=== PATIENT | male | born 1990 | race Caucasian/White ===

== ENCOUNTER 2020-02-15 19:35 | Emergency (ER) | payer OTHER, SELFPAY ==
[2020-02-15 20:00] VITALS: BP 139/88; PULSE 111; RESP 20; TEMP 37.2; O2SAT 98; BMI 35.5
--- NOTE | 2020-02-15 20:25 | ECG_ITS ---
Test Reason : [id number] Blood Pressure : / mmHG Vent. Rate : 101 BPM Atrial Rate : 101 BPM P-R Int : 138 ms QRS Dur : 080 ms QT Int : 308 ms P-R-T Axes : 008 051 020 degrees QTc Int : 399 ms Sinus tachycardia Nonspecific T wave abnormality Abnormal ECG When compared with ECG of 04-APR-2004 16:47, Nonspecific ST and T wave abnormality now present Referred By: Susie Moya Electronically Signed By:TRISH AMBRIZ
--- NOTE | 2020-02-15 20:25 | XR_ITS ---
EXAMINATION: XR CHEST CLINICAL INFORMATION: Tachycardia COMPARISON: None TECHNIQUE: Frontal view of the chest was obtained. 8:37 PM FINDINGS: Ventricular peritoneal shunt line over the left side of the chest No significant abnormality is noted involving the heart, lungs, mediastinum, bony thorax or soft tissues. XR/XR chest 1V IMPRESSION: Unremarkable examination.
--- NOTE | 2020-02-15 20:29 | ED_ITS ---
HPI - General Adult General Chief complaint: General Medical Stated complaint: COVID + Time Seen by Provider: 02/15/20 19:39 Source: patient and family History of Present Illness HPI narrative: 29-year-old male with a past medical history brain surgery, seizures, CVA, Hypogonadotropic hypogonadism, COVID-19 positive on 02/11 presenting to the ED with mother complaining of rapid heart rate in the 150s, intermittent fevers, dry cough and fatigue. Mother admits patient currently being weaned off seizure medications. Denies CP/SOB, abdominal pain, nausea/vomiting, diarrhea. P.o. intake WNL Onset (ago): day(s) Related Data Previous Rx's Medication Instructions Recorded anastrozole 1 mg tablet 1 mg PO DAILY 30 Days #30 tab 01/16/20 testosterone enanthate 75 mg/0.5 75 mg SUBCUT QWEEK 28 Days #2 ml 01/18/20 mL subcutaneous auto-injector Allergies Allergy/AdvReac Type Severity Reaction Status Date / Time No Known Allergies Allergy Verified 02/15/20 20:20 Review of Systems Review of Systems: Constitutional: No Weight loss, + Fever, No Chills, No Night Sweats, + Fatigue, + Malaise Cardiovascular: No Chest Pain, No SOB, No Dyspnea on Exertion, No Orthopnea, No Edema, No Palpitations Respiratory: + Cough, No Sputum, No Wheezing, No Smoke Exposure, No Dyspnea Gastrointestinal: No Nausea, No Vomiting, No Diarrhea, No Constipation, No Ab dominal pain Musculoskeletal: No joint pain, No Myalgias, No Joint Swelling Skin: No Skin Lesions, No rash Yes all other systems are reviewed and are negative [facility] Past Medical History Attestation statement: The following information was validated with the patient. Medical History (Updated 02/16/20 @ 00:21 by ELY Toribio) Hypogonadotropic hypogonadism Seizure Surgical History (Updated 02/15/20 @ 20:03 by Bobbi Rojas) History of thyroidectomy, subtotal Social History Social History Advance Directives: No Advance Directives Information Provided: No Physical Exam Vital Signs: Vital Signs: Last Vital Signs Temp 99 F 02/15/20 20:00 Pulse 101 H 02/15/20 22:00 Resp 18 02/15/20 22:00 BP 139/88 02/15/20 20:00 Pulse Ox 97 02/15/20 22:00 Body Mass Index 35.5 Const: General: cooperative Limitations: no limitations HENMT: Head: Yes normal to inspection Ears: hearing grossly normal bilaterally General nose exam: Normal external nose present Face and sinus: Yes normal facial exam Eyes: General: appearance normal, both eyes and all related structures EOM: EOMs intact bilaterally Neck: Neck: Yes normal visual inspection and Yes no meningeal signs Resp: Effort & Inspection: normal respiratory effort Auscultation: clear to auscultation bilaterally, no rales and no wheezes Cardio: Rate: regular rate and tachycardic Heart sounds: S1 normal heart sound present and S2 normal heart sound present GI: Inspection: Yes normal to inspection Palpation (GI): Soft to palpation, nontender, no guarding and not rigid Skin: Rashes: no rashes Wounds: no wounds Neuro: General: no meningeal signs Gait exam (Neuro): Normal gait present Extrem: Other: No LE edema or calf tenderness General: Yes normal to inspection Course Course Course Narrative: * d-dimer negative, ALT/CRP mildly elevated, troponin negative * CXR unremarkable * 1218--repeat troponin without 50% increase in delta>PR unlikely Lab and imaging results discussed with patient and mother. Worrisome signs and symptoms and strict return precautions discussed. They verbalized understanding feel safe for discharge home Medical Decision Making MDM Narrative Medical decision making narrative: 29-year-old male with a past medical history brain surgery, seizures, CVA, Hypogonadotropic hypogonadism, COVID-19 positive on 02/11 presenting to the ED with mother complaining of rapid heart rate in the 150s, intermittent fevers, dry cough and fatigue. On exam mildly tachycardic, NAD/nontoxic appearing, lungs CTA, abdomen soft/nontender. Concern for COVID-19 vs PE. Low concern for ACS/bacterial infection Plan: EKG, labs, CXR Lab Data Result diagrams: 02/15/20 21:07 02/15/20 21:07 Labs: Lab Results 02/15/20 02/15/20 02/15/20 Range/Units 21:07 21:07 21:08 WBC 5.1 (4.8-10.8) X10*3/uL RBC 5.28 (4.60-5.80) X10*6/uL Hgb 15.6 (14.0-18.0) g/dl Hct 45.9 (42-52) % MCV 86.9 (80-98) fL MCH 29.5 (27.0-33.0) pg MCHC 34.0 (31.0-36.0) g/dl RDW 12.3 (11.0-16.0) % Plt Count 171 (160-400) X10*3/uL MPV 9.1 L (9.4-12.4) fL Immature Gran % (Auto) 0.8 H (0.0-0.4) % Neut % (Auto) 64.5 (45-73) % Lymph % (Auto) 25.9 (20-40) % [place] % (Auto) 8.2 (2-11) % Eos % (Auto) 0.4 (0-4) % Baso % (Auto) 0.2 (0-2) % Lymph # (Auto) 1.3 (1.2-4.9) X10*3/uL [place] # (Auto) 0.4 (0.1-1.2) X10*3/uL Eos # (Auto) 0.0 (0.0-0.4) X10*3/uL Baso # (Auto) 0.0 (0.0-0.2) X10*3/uL Abs Immat Gran (auto) 0.04 H (0.00-0.03) X10*3/uL Absolute Neuts (auto) 3.3 (2.0-8.3) X10*3/uL Absolute Nucleated RBC 0.000 (0.0-0.012) X10*3/uL Nucleated RBC % (auto) 0.0 (0.0-0.2) /100WBC PT (10.8-13.0) SEC INR (0.9-1.1) APTT (24.1-38.0) SEC D-Dimer NG/ML Sodium 138 (135-145) mmol/L Potassium 3.9 (3.3-5.1) mmol/l Chloride 104 (96-108) mmol/L Carbon Dioxide 25 (22-29) mmol/L Anion Gap 13 (12-20) BUN 15 (9-16) mg/dL Creatinine 0.85 (0.5-1.4) mg/dL Estim Creat Clear Calc 143.1 Estimated GFR > 60 Random Glucose 90 (60-115) mg/dL Calcium 9.2 (8.4-10.2) mg/dL Magnesium 2.1 (1.6-2.6) mg/dL Ferritin (20-250) ng/mL Total Bilirubin 0.4 (0.0-1.0) mg/dL Direct Bilirubin 0.2 (0.0-0.5) mg/dL AST 24 (5-37) U/L ALT 50 H (0-40) U/L Alkaline Phosphatase 120 H (39-117) U/L Lactate Dehydrogenase (118-273) U/L Troponin I High Sens < 3.5 (<3.5-35.0) ng/L C-Reactive Protein (< or = 0.50) mg/dL B-Natriuretic Peptide (<100) pg/mL Total Protein 7.4 (6.5-8.0) g/dL Albumin 4.7 (3.5-5.0) g/dL Procalcitonin ng/mL 02/15/20 02/15/20 02/15/20 Range/Units 21:08 21:08 21:08 WBC (4.8-10.8) X10*3/uL RBC (4.60-5.80) X10*6/uL Hgb (14.0-18.0) g/dl Hct (42-52) % MCV (80-98) fL MCH (27.0-33.0) pg MCHC (31.0-36.0) g/dl RDW (11.0-16.0) % Plt Count (160-400) X10*3/uL MPV (9.4-12.4) fL Immature Gran % (Auto) (0.0-0.4) % Neut % (Auto) (45-73) % Lymph % (Auto) (20-40) % [place] % (Auto) (2-11) % Eos % (Auto) (0-4) % Baso % (Auto) (0-2) % Lymph # (Auto) (1.2-4.9) X10*3/uL [place] # (Auto) (0.1-1.2) X10*3/uL Eos # (Auto) (0.0-0.4) X10*3/uL Baso # (Auto) (0.0-0.2) X10*3/uL Abs Immat Gran (auto) (0.00-0.03) X10*3/uL Absolute Neuts (auto) (2.0-8.3) X10*3/uL Absolute Nucleated RBC (0.0-0.012) X10*3/uL Nucleated RBC % (auto) (0.0-0.2) /100WBC PT 13.9 H (10.8-13.0) SEC INR 1.2 H (0.9-1.1) APTT 33.5 (24.1-38.0) SEC D-Dimer < 200 NG/ML Sodium (135-145) mmol/L Potassium (3.3-5.1) mmol/l Chloride (96-108) mmol/L Carbon Dioxide (22-29) mmol/L Anion Gap (12-20) BUN (9-16) mg/dL Creatinine (0.5-1.4) mg/dL Estim Creat Clear Calc Estimated GFR Random Glucose (60-115) mg/dL Calcium (8.4-10.2) mg/dL Magnesium (1.6-2.6) mg/dL Ferritin 803 H (20-250) ng/mL Total Bilirubin (0.0-1.0) mg/dL Direct Bilirubin (0.0-0.5) mg/dL AST (5-37) U/L ALT (0-40) U/L Alkaline Phosphatase (39-117) U/L Lactate Dehydrogenase 190 (118-273) U/L Troponin I High Sens (<3.5-35.0) ng/L C-Reactive Protein 0.86 H (< or = 0.50) mg/dL B-Natriuretic Peptide < 10 (<100) pg/mL Total Protein (6.5-8.0) g/dL Albumin (3.5-5.0) g/dL Procalcitonin ng/mL 02/15/20 02/15/20 Range/Units 21:08 23:40 WBC (4.8-10.8) X10*3/uL RBC (4.60-5.80) X10*6/uL Hgb (14.0-18.0) g/dl Hct (42-52) % MCV (80-98) fL MCH (27.0-33.0) pg MCHC (31.0-36.0) g/dl RDW (11.0-16.0) % Plt Count (160-400) X10*3/uL MPV (9.4-12.4) fL Immature Gran % (Auto) (0.0-0.4) % Neut % (Auto) (45-73) % Lymph % (Auto) (20-40) % [place] % (Auto) (2-11) % Eos % (Auto) (0-4) % Baso % (Auto) (0-2) % Lymph # (Auto) (1.2-4.9) X10*3/uL [place] # (Auto) (0.1-1.2) X10*3/uL Eos # (Auto) (0.0-0.4) X10*3/uL Baso # (Auto) (0.0-0.2) X10*3/uL Abs Immat Gran (auto) (0.00-0.03) X10*3/uL Absolute Neuts (auto) (2.0-8.3) X10*3/uL Absolute Nucleated RBC (0.0-0.012) X10*3/uL Nucleated RBC % (auto) (0.0-0.2) /100WBC PT (10.8-13.0) SEC INR (0.9-1.1) APTT (24.1-38.0) SEC D-Dimer NG/ML Sodium (135-145) mmol/L Potassium (3.3-5.1) mmol/l Chloride (96-108) mmol/L Carbon Dioxide (22-29) mmol/L Anion Gap (12-20) BUN (9-16) mg/dL Creatinine (0.5-1.4) mg/dL Estim Creat Clear Calc Estimated GFR Random Glucose (60-115) mg/dL Calcium (8.4-10.2) mg/dL Magnesium (1.6-2.6) mg/dL Ferritin (20-250) ng/mL Total Bilirubin (0.0-1.0) mg/dL Direct Bilirubin (0.0-0.5) mg/dL AST (5-37) U/L ALT (0-40) U/L Alkaline Phosphatase (39-117) U/L Lactate Dehydrogenase (118-273) U/L Troponin I High Sens 3.7 (<3.5-35.0) ng/L C-Reactive Protein (< or = 0.50) mg/dL B-Natriuretic Peptide (<100) pg/mL Total Protein (6.5-8.0) g/dL Albumin (3.5-5.0) g/dL Procalcitonin 0.05 ng/mL Discharge Plan Discharge Clinical Impression: COVID-19, Tachycardia Patient Disposition: Home, Self-Care Instructions: COVID-19 (Coronavirus Disease 2019) (ED) Additional Instructions: your blood work and chest x-ray were reassuring today in the ED Call your doctor for follow-up It is important that you are staying hydrated at home If you develop constant or worsening chest pain, shortness of breath, or high fevers unresolved with Tylenol at home return to the ED Prescriptions: No Action anastrozole 1 mg tablet 1 mg PO DAILY 30 Days Qty: 30 RF: 2 testosterone enanthate [Xyosted] 75 mg/0.5 mL auto-injector 75 mg subcut QWEEK 28 Days Qty: 2 RF: 3 Referrals: Physician,Unknown [Primary Care Provider] - 2 days
[2020-02-15 21:15] LABS: Basophils Percent Auto 0.2 % (0-2); Eosinophils Percent Auto 0.4 % (0-4); Hematocrit 45.9 % (42-52); Hemoglobin 15.6 g/dl (14.0-18.0); Imm Gran Abs Auto 0.04 X10*3/uL (0.00-0.03); Imm Gran Pct Auto 0.8 % (0.0-0.4); Lymphocytes Absolute Auto 1.3 X10*3/uL (1.2-4.9); Lymphocytes Percent Auto 25.9 % (20-40); MANUAL DIFF FLAG NO; Mean Corpuscular Hemoglobin 29.5 pg (27.0-33.0); Mean Corpuscular Volume 86.9 fL (80-98); Mean Platelet Volume 9.1 fL (9.4-12.4); Monocytes Absolute Auto 0.4 X10*3/uL (0.1-1.2); Monocytes Percent Auto 8.2 % (2-11); Neutrophils Absolute Auto 3.3 X10*3/uL (2.0-8.3); Neutrophils Percent Auto 64.5 % (45-73); Platelet Count 171 X10*3/uL (160-400); Red Blood Count 5.28 X10*6/uL (4.60-5.80); Red Cell Distribution Width 12.3 % (11.0-16.0); White Blood Count 5.1 X10*3/uL (4.8-10.8)
[2020-02-15 21:22] LABS: INTERNATIONAL NORM RATIO 1.2 (0.9-1.1); Prothrombin Time 13.9 SEC (10.8-13.0)
[2020-02-15 21:25] LABS: Partial Thromboplastin Time 33.5 SEC (24.1-38.0)
[2020-02-15 21:26] LABS: D Dimer < 200 NG/ML
[2020-02-15 21:40] LABS: C Reactive Protein 0.86 mg/dL (< or = 0.50); Lactate Dehydrogenase 190 U/L (118-273)
[2020-02-15 21:41] LABS: Alanine Aminotransferase 50 U/L (0-40); Albumin Level 4.7 g/dL (3.5-5.0); Alkaline Phosphatase 120 U/L (39-117); Anion Gap 13 (12-20); Aspartate Amino Transferase 24 U/L (5-37); Bilirubin Direct 0.2 mg/dL (0.0-0.5); Bilirubin Total 0.4 mg/dL (0.0-1.0); Blood Urea Nitrogen 15 mg/dL (9-16); Calcium 9.2 mg/dL (8.4-10.2); Carbon Dioxide 25 mmol/L (22-29); Chloride 104 mmol/L (96-108); Creatinine Clr Calc Pharmacy 143.1; Estimated Glomerular Filt Rate > 60; Glucose Random 90 mg/dL (60-115); Magnesium 2.1 mg/dL (1.6-2.6); Potassium 3.9 mmol/l (3.3-5.1); Sodium 138 mmol/L (135-145); Total Protein 7.4 g/dL (6.5-8.0)
[2020-02-15 21:44] LABS: B Type Natriuretic Peptide < 10 pg/mL (<100)
[2020-02-15 21:45] LABS: Troponin-I High Sensitivity < 3.5 ng/L (<3.5-35.0)
[2020-02-15 21:58] LABS: Procalcitonin 0.05 ng/mL
[2020-02-15 22:00] VITALS: PULSE 101; RESP 18; O2SAT 97
[2020-02-15 22:03] LABS: Ferritin 803 ng/mL (20-250)
[2020-02-16 00:13] LABS: Troponin-I High Sensitivity 3.7 ng/L (<3.5-35.0)
== END 2020-02-16 00:30 | disposition home or self-care (01) ==
PROVIDERS: Physician Assistant; Emergency Provider Emergency Medicine
DX: U07.1 COVID-19 (principal); R00.0 Tachycardia, unspecified
CPT/HCPCS: 36415; 71045; 80048; 80076; 82728; 83615; 83735; 83880; 84145; 84484; 85025; 85379; 85610; 85730; 86140; 93005; 99283; 99284

== ENCOUNTER → 2020-03-19 08:26 | Outpatient (BNVA) | payer OTHER, SELFPAY | PROVIDERS: PCP Internal Medicine; Referring Provider Internal Medicine; Visit Provider Internal Medicine Endocrinology, Diabetes & Metabolism ==

== ENCOUNTER 2020-07-20 07:53 | Outpatient (REF) | payer OTHER, SELFPAY ==
[2020-07-20 08:17] LABS: Hematocrit 48.4 % (42-52); Hemoglobin 16.2 g/dl (14.0-18.0)
[2020-07-20 08:43] LABS: Cholesterol 197 mg/dL; HDL Cholesterol 35 mg/dL; LDL Cholesterol Calculated 119 mg/dl; Triglycerides 215 mg/dL
[2020-07-20 09:04] LABS: Free T4 (Free Thyroxine) 0.83 ng/dL (0.71-1.85); Thyroid Stimulating Hormone 3.42 uIU/mL (0.32-4.0); Vitamin D 25-OH Total 33.4 ng/mL (>30)
[2020-07-22 20:17] LABS: Prolactin 5.5 ng/mL (2.0-18.0)
[2020-07-25 13:32] LABS: Testosterone-Albumin 4.5 g/dL (3.6-5.1); Testosterone-Bioavailable 335.5 ng/dL (110.0-575.0); Testosterone-Free 163.2 pg/mL (46.0-224.0); Testosterone-SHBG 16 nmol/L (10-50); Testosterone-Total 669 ng/dL (250-1100)
[2020-07-25 19:18] LABS: Estradiol Ultra Sensitive 13 pg/mL (< OR = 29)
[2020-07-26 15:57] LABS: IGF-1 (Somatomedin C) 142 ng/mL (63-373); IGF-1 Z Score (Male) -0.3 SD (-2.0 - +2.0)
[2020-07-26 18:21] LABS: Adrenocorticotropic Hormone 40 pg/mL (6-50)
== END 2020-07-20 07:54 | disposition home or self-care (01) ==
LOC: HO.LAB 07:53
PROVIDERS: PCP Internal Medicine; Visit Provider Internal Medicine Endocrinology, Diabetes & Metabolism
DX: E23.0 Hypopituitarism (principal); E04.2 Nontoxic multinodular goiter; E89.0 Postprocedural hypothyroidism; E55.9 Vitamin D deficiency, unspecified
CPT/HCPCS: 36415; 80061; 82024; 82306; 82533; 82670; 84146; 84305; 84403; 84439; 84443; 85014; 85018

== ENCOUNTER → 2020-07-22 13:46 | Outpatient (BNVA) | payer OTHER, SELFPAY | PROVIDERS: PCP Internal Medicine; Visit Provider Internal Medicine Endocrinology, Diabetes & Metabolism | DX: E23.0 Hypopituitarism (principal); E89.0 Postprocedural hypothyroidism; E04.2 Nontoxic multinodular goiter; E66.9 Obesity, unspecified; E55.9 Vitamin D deficiency, unspecified | CPT/HCPCS: 99212 ==

== ENCOUNTER 2020-08-02 07:42 | Outpatient (REF) | payer OTHER, SELFPAY ==
[2020-08-05 19:12] LABS: Adrenocorticotropic Hormone <5 pg/mL (6-50)
[2020-08-07 23:22] LABS: Dexamethasone 415 ng/dL
[2020-08-09 07:47] LABS: Corticosteroid Bind Globulin 3.5 mg/dL (1.9-4.5)
== END 2020-08-02 07:43 | disposition home or self-care (01) ==
LOC: HO.LAB 07:42
PROVIDERS: PCP Internal Medicine; Visit Provider Internal Medicine Endocrinology, Diabetes & Metabolism
DX: E23.0 Hypopituitarism (principal)
CPT/HCPCS: 36415; 80299; 82024; 82533; 84449

== ENCOUNTER 2020-09-06 15:44 | Outpatient (REF) | payer OTHER, SELFPAY ==
--- NOTE | ~2020-09-06 | XR_ITS ---
EXAMINATION: XR SKULL CLINICAL INFORMATION: Craniotomy with PLASTIC INSTALLER shunt COMPARISON: None TECHNIQUE: AP and lateral views of the skull. FINDINGS: Patient is status post right-sided craniotomy. A ventricular shunt is present. The distal end of the catheter, presumably in the abdomen, is not included on the radiographs. No other abnormalities are detected. XR/XR skull <4V IMPRESSION: Status post craniotomy with ventricular shunt present.
== END 2020-09-06 15:45 | disposition home or self-care (01) ==
LOC: HO.XRAY 15:44
PROVIDERS: PCP Internal Medicine; Visit Provider Radiology Diagnostic Radiology
DX: Z18.10 Retained metal fragments, unspecified (principal)
CPT/HCPCS: 70250

== ENCOUNTER → 2020-11-21 12:49 | Outpatient (BNVA) | payer OTHER, SELFPAY | PROVIDERS: PCP Internal Medicine; Visit Provider Internal Medicine | DX: E23.0 Hypopituitarism (principal); E89.0 Postprocedural hypothyroidism; E04.2 Nontoxic multinodular goiter; N62 Hypertrophy of breast | CPT/HCPCS: 99212 ==

== ENCOUNTER 2020-11-22 07:16 | Outpatient (REF) | payer OTHER, SELFPAY ==
[2020-11-22 07:57] LABS: Hematocrit 47.6 % (42-52); Hemoglobin 16.2 g/dl (14.0-18.0)
[2020-11-22 08:43] LABS: Free T4 (Free Thyroxine) 0.81 ng/dL (0.71-1.85); Thyroid Stimulating Hormone 4.99 uIU/mL (0.32-4.0)
[2020-11-24 02:36] LABS: HCG Tumor Marker <3 mIU/mL (<5)
[2020-11-24 04:21] LABS: Lutenizing Hormone 1.1 mIU/mL (1.5-9.3); Prolactin 7.4 ng/mL (2.0-18.0)
[2020-11-25 18:30] LABS: Sex Hormone Binding Globulin 15 nmol/L (10-50)
[2020-11-28 17:31] LABS: Estrogen 99.1 pg/mL (60-190)
== END 2020-11-22 07:17 | disposition home or self-care (01) ==
LOC: HO.LAB 07:16
PROVIDERS: PCP Internal Medicine; Visit Provider Internal Medicine
DX: E23.0 Hypopituitarism (principal); E04.2 Nontoxic multinodular goiter; N62 Hypertrophy of breast
CPT/HCPCS: 36415; 82672; 83001; 83002; 84146; 84153; 84270; 84402; 84403; 84439; 84443; 84702; 85014; 85018

== ENCOUNTER 2020-11-29 07:21 | Outpatient (REF) | payer OTHER, SELFPAY ==
[2020-12-01 05:57] LABS: Follicle Stimulating Hormone 3.7 mIU/mL (1.6-8.0)
[2020-12-05 12:56] LABS: Testosterone, Total 604 ng/dL (250-1100)
== END 2020-11-29 07:22 | disposition home or self-care (01) ==
LOC: HO.LAB 07:21
PROVIDERS: Internal Medicine; PCP Internal Medicine; Visit Provider Internal Medicine
DX: E04.2 Nontoxic multinodular goiter (principal); E23.0 Hypopituitarism
CPT/HCPCS: 36415; 83001; 84402; 84403

== ENCOUNTER 2020-12-03 10:42 | Outpatient (REF) | payer OTHER, SELFPAY ==
--- NOTE | ~2020-12-03 | MM_ITS ---
EXAMINATION: MM DIAGNOSTIC DIGITAL BREAST TOMOSYNTHESIS, BILATERAL US DIAGNOSTIC ULTRASOUND BREAST, BILATERAL CLINICAL INFORMATION: 30-year-old male with hypertrophy of breast; N62. Endocrine medication. No prior breast imaging. COMPARISON: None (current study represents initial baseline exam). TECHNIQUE: Digital breast tomosynthesis is performed in both the craniocaudal and mediolateral oblique views along with computer-aided detection (CAD). Synthesized 2D images are generated from the tomosynthesis. Additional right MLO view is provided. Positioning is technically challenging and tailored to patient capabilities. Ultrasound of both breasts is targeted to the retroareolar and periareolar regions. In addition, targeted imaging of the lower left breast is performed. Grayscale imaging and color Doppler are used without and with harmonics. FINDINGS: There are scattered areas of fibroglandular density (ACR BI-RADS breast composition Category b). There is a mild bilateral symmetric subareolar gynecomastia parenchymal pattern. The remainder of the breasts are fatty pseudogynecomastia. There are no abnormal calcifications. Skin contours are smooth. The left MLO view has a 0.6 cm macrolobulated nodule at junction of breast and upper abdominal wall, 9 cm from nipple. There is questionable notch contour on tomography which may suggest subcutaneous node. Ultrasound bilateral breasts show no subareolar or periareolar cystic or solid mass or architectural abnormality. No focal duct ectasia. No skin thickening or edema tracking in soft tissue planes. There is no ultrasound correlate for the small nodule inferior left breast/abdominal wall junction noted on left MLO mammography. Results are discussed with the patient and father at time of visit. There is borderline/mild bilateral benign symmetric gynecomastia. Small nodule inferior left breast on MLO view near abdomen may represent subcutaneous node. As there is no ultrasound correlate to confirm a node, short interval six-month follow-up left mammography will be requested to confirm stability. MM/MM tomosynthesis diagnostic BI IMPRESSION: 1. Bilateral symmetric mild/borderline subareolar gynecomastia. 2. Small nonspecific circumscribed nodule at junction of inferior left breast and upper left abdomen, possibly subcutaneous node. No ultrasound correlate to confirm. ASSESSMENT: BI-RADS 3: Probably Benign RECOMMENDATION: Left mammography in 6 months. This patient's information was entered into a reminder system with a target due date for their next mammogram.
== END 2020-12-03 10:43 | disposition home or self-care (01) ==
LOC: HO.MAMMO 10:42
PROVIDERS: Visit Provider Internal Medicine
DX: N62 Hypertrophy of breast (principal)
CPT/HCPCS: 76642; 77062; 77066

== ENCOUNTER → 2020-12-24 13:24 | Outpatient (BNVA) | payer OTHER, SELFPAY | PROVIDERS: PCP Internal Medicine; Visit Provider Surgery | DX: N62 Hypertrophy of breast (principal); R92.8 Other abnormal and inconclusive findings on diagnostic imaging of breast | CPT/HCPCS: 99202 ==

== ENCOUNTER 2021-03-28 07:26 | Outpatient (REF) | payer OTHER, SELFPAY ==
[2021-03-28 08:00] LABS: Hematocrit 46.3 % (42.0-52.0); Hemoglobin 15.6 g/dl (14.0-18.0)
[2021-03-28 08:48] LABS: Free T4 (Free Thyroxine) 1.01 ng/dL (0.71-1.85); Prostate Specific Antigen 0.46 ng/mL (<0.05-4.0); Thyroid Stimulating Hormone 4.56 uIU/mL (0.32-4.0)
[2021-03-30 02:52] LABS: Sex Hormone Binding Globulin 17 nmol/L (10-50)
[2021-04-03 14:02] LABS: Testosterone, Free 55.7 pg/mL (35.0-155.0); Testosterone, Total 238 ng/dL (250-1100)
[2021-04-06 02:47] LABS: Estradiol Free 0.54 pg/mL; Estradiol, Ultrasensitive 23 pg/mL (< OR = 29)
== END 2021-03-28 07:27 | disposition home or self-care (01) ==
LOC: HO.LAB 07:26
PROVIDERS: PCP Internal Medicine; Visit Provider Internal Medicine
DX: E23.0 Hypopituitarism (principal); E04.2 Nontoxic multinodular goiter; E55.9 Vitamin D deficiency, unspecified
CPT/HCPCS: 36415; 82306; 82670; 82681; 84153; 84270; 84402; 84403; 84439; 84443; 85014; 85018

== ENCOUNTER 2021-04-02 15:35 | Outpatient (REF) | payer OTHER, SELFPAY ==
--- NOTE | ~2021-04-02 | US_ITS ---
EXAMINATION: US THYROID CLINICAL INFORMATION: Goiter. COMPARISON: Ultrasound thyroid soft tissues neck 07/03/2019 and 11/23/2017. TECHNIQUE: Linear transducer grayscale and color Doppler examination with attention to the region of the thyroid. FINDINGS: SIZE: Measurements of the thyroid lobes and nodules are given in sagittal, anteroposterior and transverse dimensions respectively. Right Thyroid Lobe: Removed. Left Thyroid Lobe: 2.8 x 1.2 x 1.4 cm, volume 2.4 mL. Previously 2.9 x 1.1 x 1.3 cm, volume 2.2 mL. Parenchyma: The gland echotexture is heterogeneous. Thyroid vascularity is normal. Isthmus: 0.3 cm in maximum AP dimension. Previously 0.4 cm. Estimated total number of nodules greater than or equal to 1 cm: 0. Director Perioperative nodules are described as follows: 1. Location: Left mid. Size: 0.57 x 0.37 x 0.46 cm, volume 0.05 mL. Previously: Not seen previously. Nodule characteristics: Composition: Solid/almost completely solid (2). Echogenicity: Hypoechoic (2). Shape: Not taller than wide (0). Margins: Smooth (0). Echogenic Foci: None (0). ACR TI-RADS total points: 4 ACR TI-RADS category: 4 Significant change in size (>/= 20% in 2 dimensions and minimal increase of 2 mm or 50% or greater increase in volume): None Change in features: Not applicable Change in ACR TI-RADS risk category: Not applicable 2. Location: Left mid. Size: 0.61 x 0.45 x 0.65 cm, volume 0.09 mL. Previously: 0.59 x 0.58 x 0.51 cm, volume 0.09 mL. Nodule characteristics: Composition: Solid/almost completely solid (2). Echogenicity: Hypoechoic (2). Shape: Not taller than wide (0). Margins: Smooth (0). Echogenic Foci: None (0). ACR TI-RADS total points: 4 ACR TI-RADS category: 4 Significant change in size (>/= 20% in 2 dimensions and minimal increase of 2 mm or 50% or greater increase in volume): None Change in features: Not applicable Change in ACR TI-RADS risk category: Not applicable 3. Location: Left lower pole. Size: 0.46 x 0.28 x 0.52 cm, volume 0.04 mL. Previously: Not seen previously. Nodule characteristics: Composition: Solid/almost completely solid (2). Echogenicity: Hypoechoic (2). Shape: Not taller than wide (0). Margins: Smooth (0). Echogenic Foci: None (0). ACR TI-RADS total points: 4 ACR TI-RADS category: 4 Significant change in size (>/= 20% in 2 dimensions and minimal increase of 2 mm or 50% or greater increase in volume): None Change in features: Not applicable Change in ACR TI-RADS risk category: Not applicable NODES: No lymphadenopathy is seen in the tissue surrounding the thyroid gland. US/US thyroid IMPRESSION: Right thyroidectomy. Small subcentimeter nodules left lobe nonsuspicious. Recommend continued follow-up. ACR TI-RADS RECOMMENDATION REFERENCE: Ultrasound-guided fine-needle aspiration, followup ultrasound, no further follow up. * TR1 (0 point) and TR 2 (2 points): No FNA or follow up * TR3 (3 points): FNA if more than or equal to 2.5 cm in maximum dimension, followup ultrasound in 1, 3 and 5 years if 1.5 to 2.4 cm in maximum dimension. * TR4 (4-6 points): FNA if more than or equal to 1.5 cm in maximum dimension, followup ultrasound in 1, 2, 3 and 5 years if 1 to 1.4 cm in maximum dimension. * TR5 (more than or equal to 7 points): FNA if more than or equal to 1 cm in maximum dimension, followup ultrasound every year for 5 years if 0.5 to 0.9 cm in maximum dimension. * TR3, TR4 or TR5 nodules that are below the size threshold for follow up receive no follow up.
== END 2021-04-02 15:36 | disposition home or self-care (01) ==
LOC: HO.US 15:35
PROVIDERS: PCP Internal Medicine; Visit Provider Internal Medicine
DX: E04.2 Nontoxic multinodular goiter (principal)
CPT/HCPCS: 76536

== ENCOUNTER 2021-07-02 10:09 | Outpatient (REF) | payer OTHER, SELFPAY ==
[2021-07-02 11:24] LABS: Free T4 (Free Thyroxine) 0.82 ng/dL (0.71-1.85); Thyroid Stimulating Hormone 4.46 uIU/mL (0.32-4.0)
[2021-07-03 22:10] LABS: Triiodothyronine T3 Total 81 ng/dL (76-181)
== END 2021-07-02 10:10 | disposition home or self-care (01) ==
LOC: HO.LAB 10:09
PROVIDERS: PCP Internal Medicine; Visit Provider Internal Medicine
DX: E89.0 Postprocedural hypothyroidism (principal)
CPT/HCPCS: 36415; 84439; 84443; 84480

== ENCOUNTER → 2021-07-03 12:54 | Outpatient (BNVA) | payer OTHER, SELFPAY | PROVIDERS: PCP Internal Medicine; Visit Provider Internal Medicine | DX: Z13.89 Encounter for screening for other disorder (principal) ==

== ENCOUNTER 2021-07-07 07:24 | Outpatient (REF) | payer OTHER, SELFPAY ==
--- NOTE | ~2021-07-07 | MM_ITS ---
EXAMINATION: MM DIAGNOSTIC DIGITAL BREAST TOMOSYNTHESIS, LEFT CLINICAL INFORMATION: 30-year-old male for 6 month follow-up small nonspecific circumscribed nodule at junction inferior left breast and upper abdomen, possibly subcutaneous node. No ultrasound correlate. COMPARISON: Mammography: 12/03/2020, bilateral breast ultrasound 12/03/2020. TECHNIQUE: Digital breast tomosynthesis is performed in both the craniocaudal and mediolateral oblique views along with computer-aided detection (CAD). Synthesized 2D images are generated from the tomosynthesis. FINDINGS: There are scattered areas of fibroglandular density (ACR BI-RADS breast composition Category b). Mild subareolar gynecomastia similar to prior exam. The 0.6 cm nodule at junction inferior breast and upper abdomen on MLO view is stable from prior study. Remainder of the breast is unremarkable. Results are discussed with the patient and his father at time of visit. MM/MM tomosynthesis diagnostic LT IMPRESSION: -Stable nonspecific probable benign circumscribed nodule at junction inferior left breast and upper abdomen, possibly subcutaneous node. -Incidental subareolar gynecomastia, stable. ASSESSMENT: BI-RADS 3: Probably Benign RECOMMENDATION: Diagnostic left mammography in 6 months to follow-up the nodule at junction breast and upper abdomen. This patient's information was entered into a reminder system with a target due date for their next mammogram.
[2021-07-07 07:54] LABS: Hematocrit 44.7 % (42.0-52.0); Hemoglobin 14.9 g/dl (14.0-18.0)
[2021-07-07 08:14] LABS: Anion Gap 11 (12-20); Blood Urea Nitrogen 17 mg/dL (9-16); Calcium 9.5 mg/dL (8.4-10.2); Carbon Dioxide 22 mmol/L (22-29); Chloride 110 mmol/L (96-108); Cholesterol 209 mg/dL; Estimated Glomerular Filt Rate > 60; Glucose Random 113 mg/dL (60-115); HDL Cholesterol 36 mg/dL; LDL Cholesterol Calculated 145 mg/dl; Potassium 4.2 mmol/L (3.3-5.1); Sodium 139 mmol/L (135-145); Triglycerides 141 mg/dL
[2021-07-07 08:19] LABS: Osmolality, Serum 292 mosm/kg (281-305)
[2021-07-07 08:36] LABS: Free T4 (Free Thyroxine) 1.12 ng/dL (0.71-1.85); Prostate Specific Antigen 0.35 ng/mL (<0.05-4.0); Thyroid Stimulating Hormone 4.53 uIU/mL (0.32-4.0); Vitamin D 25-OH Total 36.3 ng/mL (>30)
[2021-07-07 09:52] LABS: Cortisol Random 17.9 ug/dL
[2021-07-08 13:11] LABS: LDL Cholesterol Direct 157 mg/dL (<100)
[2021-07-08 13:37] LABS: Prolactin 5.4 ng/mL (2.0-18.0); Sex Hormone Binding Globulin 20 nmol/L (10-50)
[2021-07-08 16:42] LABS: Triiodothyronine T3 Total 85 ng/dL (76-181)
[2021-07-09 21:46] LABS: Adrenocorticotropic Hormone 32 pg/mL (6-50)
[2021-07-11 19:51] LABS: Testosterone, Free 30.2 pg/mL (35.0-155.0); Testosterone, Total 155 ng/dL (250-1100)
[2021-07-12 03:47] LABS: Estradiol Ultra Sensitive 23 pg/mL (< OR = 29)
[2021-07-12 16:52] LABS: IGF-1 (Somatomedin C) 129 ng/mL (63-373); IGF-1 Z Score (Male) -0.4 SD (-2.0 - +2.0)
== END 2021-07-07 07:25 | disposition home or self-care (01) ==
LOC: HO.MAMMO 07:24
PROVIDERS: Absent Provider Internal Medicine; PCP Internal Medicine; Visit Provider Internal Medicine
DX: R92.2 Inconclusive mammogram (principal); E23.0 Hypopituitarism; E55.9 Vitamin D deficiency, unspecified
CPT/HCPCS: 36415; 77061; 77065; 80048; 80061; 82024; 82306; 82533; 82670; 83721; 83930; 84146; 84153; 84270; 84305; 84402; 84403; 84439; 84443; 84480; 85014; 85018

== ENCOUNTER 2021-08-19 08:46 | Outpatient (REF) | payer OTHER, SELFPAY ==
[2021-08-19 09:42] LABS: Cholesterol 211 mg/dL; HDL Cholesterol 37 mg/dL; LDL Cholesterol Calculated 142 mg/dl; Triglycerides 162 mg/dL
[2021-08-19 09:56] LABS: Free T4 (Free Thyroxine) 0.96 ng/dL (0.71-1.85); Thyroid Stimulating Hormone 3.61 uIU/mL (0.32-4.0)
[2021-08-20 21:12] LABS: Sex Hormone Binding Globulin 17 nmol/L (10-50)
[2021-08-20 21:47] LABS: LDL Cholesterol Direct 160 mg/dL (<100)
[2021-08-23 17:17] LABS: Testosterone, Free 36.3 pg/mL (35.0-155.0); Testosterone, Total 230 ng/dL (250-1100)
== END 2021-08-19 08:47 | disposition home or self-care (01) ==
LOC: HO.LAB 08:46
PROVIDERS: PCP Internal Medicine; Visit Provider Internal Medicine
DX: E89.0 Postprocedural hypothyroidism (principal); E23.0 Hypopituitarism
CPT/HCPCS: 36415; 80061; 83721; 84270; 84402; 84403; 84439; 84443

== ENCOUNTER → 2021-12-22 13:07 | Outpatient (BNVA) | payer OTHER, SELFPAY | PROVIDERS: PCP Internal Medicine; Visit Provider Dietitian, Registered | DX: E78.5 Hyperlipidemia, unspecified (principal) | CPT/HCPCS: 97802 ==

== ENCOUNTER 2021-12-31 05:56 | Outpatient (REF) | payer OTHER, SELFPAY ==
[2021-12-31 07:46] LABS: Hematocrit 47.2 % (42.0-52.0); Hemoglobin 15.7 g/dl (14.0-18.0)
[2021-12-31 08:04] LABS: Anion Gap 14 (12-20); Blood Urea Nitrogen 20 mg/dL (9-16); Calcium 9.6 mg/dL (8.4-10.2); Carbon Dioxide 20 mmol/L (22-29); Chloride 108 mmol/L (96-108); Cholesterol 200 mg/dL; Estimated Glomerular Filt Rate > 60; Glucose Random 103 mg/dL (60-115); HDL Cholesterol 32 mg/dL; LDL Cholesterol Calculated 135 mg/dl; Potassium 4.3 mmol/L (3.3-5.1); Sodium 138 mmol/L (135-145); Triglycerides 168 mg/dL
[2021-12-31 08:30] LABS: Free T4 (Free Thyroxine) 0.76 ng/dL (0.71-1.85); Prostate Specific Antigen 0.39 ng/mL (<0.05-4.0); Thyroid Stimulating Hormone 6.46 uIU/mL (0.32-4.0)
[2021-12-31 08:44] LABS: Osmolality, Serum 295 mosm/kg (281-305)
[2021-12-31 09:39] LABS: Cortisol Random 20.9 ug/dL
[2021-12-31 09:48] LABS: Vitamin D 25-OH Total 47.8 ng/mL (>30)
[2022-01-02 01:26] LABS: LDL Cholesterol Direct 144 mg/dL (<100)
[2022-01-02 02:26] LABS: Prolactin 8.4 ng/mL (2.0-18.0); Sex Hormone Binding Globulin 15 nmol/L (10-50); Triiodothyronine T3 Total 109 ng/dL (76-181)
[2022-01-06 14:27] LABS: IGF-1 (Somatomedin C) 196 ng/mL (53-331); IGF-1 Z Score (Male) 0.5 SD (-2.0 - +2.0)
[2022-01-07 23:56] LABS: Estradiol Ultra Sensitive 27 pg/mL (< OR = 29)
[2022-01-09 14:02] LABS: Testosterone, Free 51.7 pg/mL (35.0-155.0); Testosterone, Total 232 ng/dL (250-1100)
== END 2021-12-31 05:57 | disposition home or self-care (01) ==
LOC: HO.LAB 05:56
PROVIDERS: PCP Internal Medicine; Visit Provider Internal Medicine
DX: E23.0 Hypopituitarism (principal); E55.9 Vitamin D deficiency, unspecified; E78.5 Hyperlipidemia, unspecified
CPT/HCPCS: 36415; 80048; 80061; 82306; 82533; 82670; 83721; 83930; 84146; 84153; 84270; 84305; 84402; 84403; 84439; 84443; 84480; 85014; 85018

== ENCOUNTER → 2022-01-05 08:43 | Outpatient (BNVA) | payer OTHER, SELFPAY | PROVIDERS: PCP Internal Medicine; Visit Provider Internal Medicine | DX: E23.0 Hypopituitarism (principal); N62 Hypertrophy of breast; E89.0 Postprocedural hypothyroidism; E04.2 Nontoxic multinodular goiter; E78.5 Hyperlipidemia, unspecified; E55.9 Vitamin D deficiency, unspecified | CPT/HCPCS: 99212 ==

== ENCOUNTER 2022-01-15 13:05 | Outpatient (REF) | payer OTHER, SELFPAY ==
--- NOTE | ~2022-01-15 | MM_ITS ---
EXAMINATION: MM DIAGNOSTIC DIGITAL BREAST TOMOSYNTHESIS, BILATERAL CLINICAL INFORMATION: 31-year-old male for follow-up small nonspecific circumscribed nodule at junction inferior left breast and upper abdomen, possibly subcutaneous node. No ultrasound correlate. COMPARISON: Mammography: 07/07/2021, 12/03/2020 (diagnostic baseline BI-RADS 3); targeted bilateral ultrasound 12/03/2020. TECHNIQUE: Digital breast tomosynthesis is performed in both the craniocaudal and mediolateral oblique views along with computer-aided detection (CAD). Synthesized 2D images are generated from the tomosynthesis. Additional left cleavage and left CC views are provided. FINDINGS: There are scattered areas of fibroglandular density (ACR BI-RADS breast composition Category b). The mild bilateral subareolar gynecomastia similar to prior exams. There is no interval mass or architectural abnormality or abnormal calcifications. The axilla and skin contours are unremarkable. The small circumscribed nodule at junction inferior left breast and upper abdomen on MLO view is stable. Finding will be reassessed again in one year to conclude long-term surveillance. Results are discussed with the patient and his father at time of visit. MM/MM tomosynthesis diagnostic BI IMPRESSION: -Nodule for follow-up junction lower left breast and upper abdomen is stable. -Mild bilateral subareolar gynecomastia similar to previous exams. -No mammographic evidence of malignancy. ASSESSMENT: BI-RADS 3: Probably Benign RECOMMENDATION: Diagnostic mammography in 12 months. This patient's information was entered into a reminder system with a target due date for their next mammogram.
== END 2022-01-15 13:06 | disposition home or self-care (01) ==
LOC: HO.MAMMO 13:05
PROVIDERS: PCP Internal Medicine; Visit Provider Internal Medicine
DX: R92.8 Other abnormal and inconclusive findings on diagnostic imaging of breast (principal)
CPT/HCPCS: 77062; 77066

== ENCOUNTER 2022-03-27 07:01 | Outpatient (REF) | payer OTHER, SELFPAY ==
[2022-03-27 12:27] LABS: Cholesterol 203 mg/dL; HDL Cholesterol 36 mg/dL; LDL Cholesterol Calculated 143 mg/dl; Triglycerides 123 mg/dL
[2022-03-27 12:29] LABS: Free T4 (Free Thyroxine) 0.78 ng/dL (0.71-1.85); Thyroid Stimulating Hormone 4.91 uIU/mL (0.32-4.0)
[2022-04-06 13:08] LABS: LDL Cholesterol Direct 147 mg/dL (<100); Testosterone, Free 21.4 pg/mL (35.0-155.0); Testosterone, Total 125 ng/dL (250-1100); Triiodothyronine T3 Total 88 ng/dL (76-181)
== END 2022-03-27 07:02 | disposition home or self-care (01) ==
LOC: HO.HMGCLDS 07:01
PROVIDERS: PCP Internal Medicine; Visit Provider Internal Medicine
DX: E89.0 Postprocedural hypothyroidism (principal); E23.0 Hypopituitarism
CPT/HCPCS: 36415; 80061; 83721; 84402; 84403; 84439; 84443; 84480

== ENCOUNTER → 2022-04-13 13:21 | Outpatient (BNVA) | payer OTHER, SELFPAY | PROVIDERS: PCP Internal Medicine; Visit Provider Dietitian, Registered | DX: E78.5 Hyperlipidemia, unspecified (principal) | CPT/HCPCS: 97803 ==

== ENCOUNTER → 2022-06-29 13:42 | Outpatient (BNVA) | payer OTHER, SELFPAY | PROVIDERS: PCP Internal Medicine; Visit Provider Internal Medicine | DX: E23.0 Hypopituitarism (principal); E89.0 Postprocedural hypothyroidism; E04.2 Nontoxic multinodular goiter; E78.5 Hyperlipidemia, unspecified; E55.9 Vitamin D deficiency, unspecified; N62 Hypertrophy of breast | CPT/HCPCS: 99212 ==

== ENCOUNTER 2022-06-30 15:12 | Outpatient (REF) | payer OTHER, SELFPAY ==
--- NOTE | ~2022-06-30 | US_ITS ---
EXAMINATION: US THYROID CLINICAL INFORMATION: Nontoxic multinodular goiter. COMPARISON: Ultrasound soft tissue head/neck thyroid dated 04/02/2021 and 07/03/2019. TECHNIQUE: Linear transducer grayscale and color Doppler examination with attention to the region of the thyroid. FINDINGS: SIZE: Measurements of the solitary left thyroid lobe and nodules are given in sagittal, anteroposterior and transverse dimensions respectively. Right Thyroid Lobe: Surgically absent. Left Thyroid Lobe: 3.6 x 1.1 x 1.4 cm, volume 2.9 mL. Previously 2.8 x 1.2 x 1.4 cm, volume 2.4 mL. Parenchyma: The gland echotexture is homogeneous. Thyroid vascularity is normal. Isthmus: 0.5 cm in maximum AP dimension. Previously 0.3 cm. Estimated total number of nodules greater than or equal to 1 cm: 0. Airline Captain nodules are described as follows: 1. Location: Left mid. Size: 0.6 x 0.4 x 0.5 cm, volume 0.06 mL. Previously: 0.6 x 0.4 x 0.5 cm, volume 0.06 mL. Nodule characteristics: Composition: Solid/almost completely solid (2). Echogenicity: Hypoechoic (2). Shape: Not taller than wide (0). Margins: Smooth (0). Echogenic Foci: None (0). ACR TI-RADS total points: 4 Previous: 4 ACR TI-RADS category: 4 Previous: 4 Significant change in size (>/= 20% in 2 dimensions and minimal increase of 2 mm or 50% or greater increase in volume): None Change in features: No change Change in ACR TI-RADS risk category: No change 2. Location: Left mid. Size: 0.6 x 0.5 x 0.6 cm, volume 0.09 mL. Previously: 0.6 x 0.4 x 0.6 cm, volume 0.09 mL. Nodule characteristics: Composition: Solid/almost completely solid (2). Echogenicity: Hypoechoic (2). Shape: Not taller than wide (0). Margins: Smooth (0). Echogenic Foci: None (0). ACR TI-RADS total points: 4 Previous: 4 ACR TI-RADS category: 4 Previous: 4 Significant change in size (>/= 20% in 2 dimensions and minimal increase of 2 mm or 50% or greater increase in volume): None Change in features: No change Change in ACR TI-RADS risk category: No change 3. Location: Left inferior. Size: 0.9 x 0.4 x 0.8 cm, volume 0.17 mL. Previously: 0.5 x 0.3 x 0.5 cm, volume 0.04 mL. Nodule characteristics: Composition: Solid (2). Echogenicity: Hypoechoic (2). Shape: Not taller than wide (0). Margins: Smooth (0). Echogenic Foci: None (0). ACR TI-RADS total points: 4 Previous: 4 ACR TI-RADS category: 4 Previous: 4 Significant change in size (>/= 20% in 2 dimensions and minimal increase of 2 mm or 50% or greater increase in volume): None Change in features: No change Change in ACR TI-RADS risk category: No change NODES: No lymphadenopathy is seen in the tissue surrounding the thyroid gland. US/US thyroid IMPRESSION: 1. Small left thyroid subcentimeter nodules are stable compared to previous exam of 04/02/2021. 2. The right lobe has been surgically removed. ACR TI-RADS RECOMMENDATION REFERENCE: Ultrasound-guided fine-needle aspiration, followup ultrasound, no further follow up. * TR1 (0 point) and TR2 (2 points): No FNA or follow up * TR3 (3 points): FNA if more than or equal to 2.5 cm in maximum dimension, followup ultrasound in 1, 3 and 5 years if 1.5 to 2.4 cm in maximum dimension. * TR4 (4-6 points): FNA if more than or equal to 1.5 cm in maximum dimension, followup ultrasound in 1, 2, 3 and 5 years if 1 to 1.4 cm in maximum dimension. * TR5 (more than or equal to 7 points): FNA if more than or equal to 1 cm in maximum dimension, followup ultrasound every year for 5 years if 0.5 to 0.9 cm in maximum dimension. * TR3, TR4 or TR5 nodules that are below the size threshold for follow up receive no follow up.
== END 2022-06-30 15:13 | disposition home or self-care (01) ==
LOC: HO.HMGCX 15:12
PROVIDERS: PCP Internal Medicine; Visit Provider Internal Medicine
DX: E04.2 Nontoxic multinodular goiter (principal)
CPT/HCPCS: 76536

== ENCOUNTER 2022-07-09 07:22 | Outpatient (REF) | payer OTHER, SELFPAY ==
[2022-07-09 11:35] LABS: Hematocrit 47.1 % (42.0-52.0); Hemoglobin 15.8 g/dl (14.0-18.0)
[2022-07-09 11:48] LABS: Cholesterol 185 mg/dL; HDL Cholesterol 31 mg/dL; LDL Cholesterol Calculated 120 mg/dl; Triglycerides 174 mg/dL
[2022-07-09 12:11] LABS: Free T4 (Free Thyroxine) 0.91 ng/dL (0.71-1.85); Prostate Specific Antigen 0.44 ng/mL (<0.05-4.0); Thyroid Stimulating Hormone 3.52 uIU/mL (0.32-4.0)
[2022-07-11 09:58] LABS: Sex Hormone Binding Globulin 19 nmol/L (10-50)
[2022-07-11 10:29] LABS: Triiodothyronine T3 Total 91 ng/dL (76-181)
[2022-07-11 11:18] LABS: LDL Cholesterol Direct 131 mg/dL (<100)
[2022-07-18 19:49] LABS: Testosterone, Free 58.1 pg/mL (35.0-155.0); Testosterone, Total 237 ng/dL (250-1100)
== END 2022-07-09 07:23 | disposition home or self-care (01) ==
LOC: HO.HMGCLDS 07:22
PROVIDERS: PCP Internal Medicine; Visit Provider Internal Medicine
DX: Z12.5 Encounter for screening for malignant neoplasm of prostate (principal); E04.2 Nontoxic multinodular goiter; E23.0 Hypopituitarism; E78.5 Hyperlipidemia, unspecified
CPT/HCPCS: 36415; 80061; 83721; 84153; 84270; 84402; 84403; 84439; 84443; 84480; 85014; 85018

== ENCOUNTER 2023-01-18 11:47 | Outpatient (REF) | payer OTHER, SELFPAY ==
[2023-01-18 14:02] LABS: Hematocrit 45.2 % (42.0-52.0); Hemoglobin 15.1 g/dl (14.0-18.0)
[2023-01-18 14:30] LABS: Thyroid Stimulating Hormone 3.15 uIU/mL (0.32-4.0)
[2023-01-22 22:19] LABS: Testosterone, Free 63.9 pg/mL (35.0-155.0); Testosterone, Total 243 ng/dL (250-1100)
== END 2023-01-18 11:48 | disposition home or self-care (01) ==
LOC: HO.HMGCLDS 11:47
PROVIDERS: PCP Internal Medicine; Visit Provider Internal Medicine Endocrinology, Diabetes & Metabolism
DX: E23.0 Hypopituitarism (principal); E04.2 Nontoxic multinodular goiter
CPT/HCPCS: 36415; 84402; 84403; 84439; 84443; 85014; 85018

== ENCOUNTER 2023-02-01 11:10 | Outpatient (REF) | payer OTHER, SELFPAY ==
--- NOTE | ~2023-02-01 | MM_ITS ---
EXAMINATION: MM DIAGNOSTIC DIGITAL BREAST TOMOSYNTHESIS, BILATERAL CLINICAL INFORMATION: This is a male patient. Patient presents for short interval follow-up of a left breast inferiorly located asymmetry noted on prior mammography from January 2022. COMPARISON: Mammography: This study is compared with the prior mammograms dating back to November 2020. TECHNIQUE: Digital breast tomosynthesis is performed in both the craniocaudal and mediolateral oblique views along with computer-aided detection (CAD). Synthesized 2D images are generated from the tomosynthesis. FINDINGS: There are scattered areas of fibroglandular density (ACR BI-RADS breast composition Category b). There are no significant masses, abnormal calcifications, or other abnormalities. The left breast asymmetry is actually focal asymmetry located in the 6:00 region of the left breast and represents a small intramammary lymph node which is normal. MM/MM tomosynthesis diagnostic BI IMPRESSION: There are no significant changes from prior study. ASSESSMENT: BI-RADS BI-RADS 1 - Negative RECOMMENDATION: 1 year F/U Results were provided to the patient at time of visit by the technologist. This patient's information was entered into a reminder system with a target due date for their next mammogram.
== END 2023-02-01 11:11 | disposition home or self-care (01) ==
LOC: HO.MAMMO 11:10
PROVIDERS: PCP Internal Medicine; Visit Provider Internal Medicine
DX: N64.89 Other specified disorders of breast (principal)
CPT/HCPCS: 77062; 77066

== ENCOUNTER → 2023-02-01 11:30 | Outpatient (BNV) | payer OTHER, SELFPAY | PROVIDERS: PCP Internal Medicine; Visit Provider Radiology Diagnostic Radiology | DX: R92.8 Other abnormal and inconclusive findings on diagnostic imaging of breast (principal) | CPT/HCPCS: 77062; 77066 ==

== ENCOUNTER 2023-04-13 15:33 | Outpatient (AMB) | payer OTHER, SELFPAY ==
--- NOTE | 2023-04-13 15:35 | A.OFFVIS_ITS ---
Intake Vital Signs 04/13/23 15:36 Height 5 ft 6 in Weight 215 lb 13.321 oz BMI 34.8 BP 152/90 H Blood Pressure Location Rt brachial Position Sitting Pulse 88 Pulse Source Pulse Oximeter Intake Visit Reasons: Hypogonadism Intake Note: Patient presents today for Hypogonadism follow up. Gas Station Operator Required: No Accompanied by: Father Allergies No Known Allergies Allergy (Verified 04/13/23 15:40) Medication List - Last Reconciled 04/13/23 by Jaziel Mckenzie MD aspirin (Adult Aspirin Regimen) 81 mg PO DAILY levothyroxine 88 mcg PO DAILY 30 days testosterone enanthate (Xyosted) 50 mg (0.5 mL) subcut QWEEK 4 weeks HPI HPI Comments History of Present Illness Details 32 YO Male with an extensive PMHx who is seen in F/U for hypogonadism and a NTMNG. 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 He had a PARTS SALVAGER shunt placement for hydrocephalus and suffered a basal ganglia stroke resulting in left-sided weakness. He also was treated with Lupron until the age of 14 due to precocious puberty. Later in adulthood he developed hypogonadism. He had imaging of his brain 07/21/2021 at [facility] in [place], [place], but no mention was made of the pituitary. Currently using Xyosted subcutaneous testosterone 50 mg q 2 weeks. He was previously over-replaced on Xyosted 75 mg once a week. His SHBG levels are quite low, and his Total testosterone was the only parameter being followed. His Free testosterone levels were significantly elevated. He did develop elevated Estrogen levels due to increased aromatization of Testosterone. He was started on Armidex 1 mg PO daily. He has significant gynecomastia, which he states developed many years ago. He underwent bilateral mammograms, which did reveal a small mass within the left breast. He was referred to Dr. Madison who recommended monitoring with q6 months mammograms. His PCP is managing this. After his initial visit with me we decreased his dose of xyosted to his current dose of 50 mg once a week. He is somewhat shy with his Father present while discussing libido and erections. Sense of smell intact. Denies headache or visual changes. Denies galactorrhea. History of DVT or PE: Denies, and no symptoms of swelling or pain in the extrmities or SOB. PSA: 12/31/2021 0.39 H/H: 12/31/2021 15.7/47.2% 2) NTMNG and hypothyroidism: He has a non-toxic multinodular thyroid. He underwent FNA biopsy of a R lobe nodule, with cytology suspicious for follicular neoplasm. Affirma was benign. He opted for a R hemithyroidectomy, and underwent a R lobectomy with Dr. Eugene 10/04/2018 with benign pathology. Postoperatively he did develop hypothyroidism, and remains on levothyroxine 88 mcg PO daily. TSH is in the hypothyroid range, and he admits this is due to poor compliance. He has multiple subcentimeter nodules within the L lobe of the thyroid. He does have a history of radiation to the head as a child. Thyroid US: 04/02/2021 Right Thyroid Lobe: Removed. Left Thyroid Lobe: 2.8 x 1.2 x 1.4 cm, volume 2.4 mL. Previously 2.9 x 1.1 x 1.3 cm, volume 2.2 mL. Parenchyma: The gland echotexture is heterogeneous. Thyroid vascularity is normal. Isthmus: 0.3 cm in maximum AP dimension. Previously 0.4 cm. Estimated total number of nodules greater than or equal to 1 cm: 0. Warehouse Director nodules are described as follows: 1.? Location: Left mid. ?? ? Size: 0.57 x 0.37 x 0.46 cm, volume 0.05 mL. ?? ? Previously: Not seen previously. ?? ? Nodule characteristics: ?? ? Composition: Solid/almost completely solid (2). ?? ? Echogenicity: Hypoechoic (2). ?? ? Shape: Not taller than wide (0). ?? ? Margins: Smooth (0). ?? ? Echogenic Foci: None (0). ?? ? ACR TI-RADS total points: 4 ?? ? ACR TI-RADS category: 4 ? Significant change in size (>/= 20% in 2 dimensions and minimal increase of 2 mm or 50% or greater increase in volume): None ?? ? Change in features: Not applicable ?? ? Change in ACR TI-RADS risk category: Not applicable 2.? Location: Left mid. ?? ? Size: 0.61 x 0.45 x 0.65 cm, volume 0.09 mL. ?? ? Previously: 0.59 x 0.58 x 0.51 cm, volume 0.09 mL. ?? ? Nodule characteristics: ?? ? Composition: Solid/almost completely solid (2). ?? ? Echogenicity: Hypoechoic (2). ?? ? Shape: Not taller than wide (0). ?? ? Margins: Smooth (0). ?? ? Echogenic Foci: None (0). ? ACR TI-RADS total points: 4 ?? ? ACR TI-RADS category: 4 ? Significant change in size (>/= 20% in 2 dimensions and minimal increase of 2 mm or 50% or greater increase in volume): None ?? ? Change in features: Not applicable ?? ? Change in ACR TI-RADS risk category: Not applicable 3.? Location: Left lower pole. ?? ? Size: 0.46 x 0.28 x 0.52 cm, volume 0.04 mL. ?? ? Previously: Not seen previously. ?? ? Nodule characteristics: ?? ? Composition: Solid/almost completely solid (2). ?? ? Echogenicity: Hypoechoic (2). ?? ? Shape: Not taller than wide (0). ?? ? Margins: Smooth (0). ?? ? Echogenic Foci: None (0).? ACR TI-RADS total points: 4 ?? ? ACR TI-RADS category: 4 ? Significant change in size (>/= 20% in 2 dimensions and minimal increase of 2 mm or 50% or greater increase in volume): None ?? ? Change in features: Not applicable ?? ? Change in ACR TI-RADS risk category: Not applicable NODES: No lymphadenopathy is seen in the tissue surrounding the thyroid gland. Labs: Laboratory Tests 07/07/21 12/31/21 12/31/21 07:40 06:11 06:11 Hgb 15.7 Hct 47.2 Sodium 138 Potassium 4.3 Creatinine 0.88 Estimated GFR > 60 Osmolality Triglycerides 168 Cholesterol 200 LDL Cholesterol Di rect LDL Cholesterol, C alc 135 HDL Cholesterol 32 Prostate Specific Ag 0.39 25-OH Vitamin D To jose m 47.8 TSH 6.46 H Free T4 0.76 Total T3 Prolactin Sex Hormone Bind G lob Random Cortisol ACTH 32 12/31/21 12/31/21 12/31/21 06:11 06:11 06:11 Hgb Hct Sodium Potassium Creatinine Estimated GFR Osmolality 295 Triglycerides Cholesterol LDL Cholesterol Di rect 144 H LDL Cholesterol, C alc HDL Cholesterol Prostate Specific Ag 25-OH Vitamin D To jose m TSH Free T4 Total T3 109 Prolactin 8.4 Sex Hormone Bind G lob 15 Random Cortisol 20.9 ACTH He is currently on Xyosted 50 mg Q wkly Good libido . No problems with errection As well as levothyroxine 88 mcg for hypothyroidism [facility] Medical History Gynecomastia HLD (hyperlipidemia) Hypogonadotropic hypogonadism Hypopituitarism Non-toxic multinodular goiter Obesity (BMI 30-39.9) Post-surgical hypothyroidism Seizure Vitamin D deficiency Surgical History History of thyroidectomy, subtotal History of ventriculoperitoneal shunting Hx of brain surgery Family History Father No problems noted. Mother No problems noted. Social History Alcohol intake: current Alcohol intake frequency: holidays/special occasions only Patient Tobacco Use Status: Never used Tobacco Physical Exam Const Other: Thyroid gland is normal size weighs about 15 g .There are no thyroid nodules palpated. Examination of the genitalia reveals normal size pthalmus . Testes are of normal size and consistent Assessment & Plan Assessment & Plan (1) Non-toxic multinodular goiter: Code(s): E04.2 - Nontoxic multinodular goiter Plan: History of subcentimeter nodules with hypothyroidism. Clinically and biochemically euthyroid 88 mcg levothyroxine In terms of the thyroid, patient returned to the care of his primary care provider and returned back to endocrinology as needed (2) Hypogonadotropic hypogonadism: Code(s): E23.0 - Hypopituitarism Plan: Is a 32-year-old white male with a history of? 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 Currently on intramuscular Xyosted 50 mg q.month. Would like to reassess axis by having patient hold testosterone for 6 weeks and recheck free and total testosterone, LH, FSH. If workup points towards secondary hypogonadism, may repeat MRI of the pituitary at that point. She will be done in [facility] for follow-up of the brain tumor. Will also check a.m. cortisol Orders: Orders Lutenizing Hormone 5 Weeks E23.0 - Hypopituitarism Follicle Stimulating Hormone 5 Weeks E23.0 - Hypopituitarism Cortisol Random 5 Weeks E23.0 - Hypopituitarism Coding Level of Care Code Est Pt Level 3 (73717) Diagnoses Non-toxic multinodular goiter E04.2 Hypogonadotropic hypogonadism E23.0
[2023-04-13 15:36] VITALS: BP 152/90; PULSE 88; BMI 34.8
== END 2023-04-13 16:15 | disposition home or self-care (01) ==
PROVIDERS: PCP Internal Medicine; Visit Provider Internal Medicine Endocrinology, Diabetes & Metabolism
DX: E23.0 Hypopituitarism (principal); E89.0 Postprocedural hypothyroidism
CPT/HCPCS: 99214

== ENCOUNTER → 2023-04-13 15:33 | Outpatient (BNVA) | payer OTHER, SELFPAY | PROVIDERS: PCP Internal Medicine; Visit Provider Internal Medicine Endocrinology, Diabetes & Metabolism | DX: E04.2 Nontoxic multinodular goiter (principal); E23.0 Hypopituitarism | CPT/HCPCS: 99212 ==

== ENCOUNTER 2023-05-20 07:37 | Outpatient (REF) | payer OTHER, SELFPAY ==
[2023-05-20 11:41] LABS: Cortisol Random 20.6 ug/dL
[2023-05-21 06:38] LABS: Follicle Stimulating Hormone 8.1 mIU/mL (1.4-12.8); Lutenizing Hormone 3.7 mIU/mL (1.5-9.3)
== END 2023-05-20 07:38 | disposition home or self-care (01) ==
LOC: HO.HMGCLDS 07:37
PROVIDERS: PCP Internal Medicine; Visit Provider Internal Medicine Endocrinology, Diabetes & Metabolism
DX: E23.0 Hypopituitarism (principal)
CPT/HCPCS: 36415; 82533; 83001; 83002

== ENCOUNTER 2023-06-10 08:05 | Outpatient (REF) | payer OTHER, SELFPAY ==
[2023-06-14 17:13] LABS: Testosterone, Free 31.7 pg/mL (35.0-155.0); Testosterone, Total 179 ng/dL (250-1100)
== END 2023-06-10 08:06 | disposition home or self-care (01) ==
LOC: HO.LAB 08:05
PROVIDERS: PCP Internal Medicine; Visit Provider Internal Medicine Endocrinology, Diabetes & Metabolism
DX: E23.0 Hypopituitarism (principal)
CPT/HCPCS: 36415; 84402; 84403

== ENCOUNTER 2023-10-06 07:59 | Outpatient (REF) | payer OTHER, SELFPAY ==
[2023-10-06 10:15] LABS: Hematocrit 47.9 % (42.0-52.0); Hemoglobin 16.4 g/dl (14.0-18.0)
[2023-10-11 22:09] LABS: Testosterone, Free 50.9 pg/mL (35.0-155.0); Testosterone, Total 252 ng/dL (250-1100)
== END 2023-10-06 08:00 | disposition home or self-care (01) ==
LOC: HO.LAB 07:59
PROVIDERS: PCP Internal Medicine; Visit Provider Internal Medicine Endocrinology, Diabetes & Metabolism
DX: E23.0 Hypopituitarism (principal)
CPT/HCPCS: 36415; 84402; 84403; 85014; 85018

== ENCOUNTER 2023-10-12 07:44 | Outpatient (REF) | payer OTHER, SELFPAY ==
[2023-10-19 19:28] LABS: Testosterone, Free 88.1 pg/mL (35.0-155.0); Testosterone, Total 390 ng/dL (250-1100)
== END 2023-10-12 07:45 | disposition home or self-care (01) ==
LOC: HO.LAB 07:44
PROVIDERS: Visit Provider Internal Medicine Endocrinology, Diabetes & Metabolism
DX: E23.0 Hypopituitarism (principal)
CPT/HCPCS: 36415; 84402; 84403

== ENCOUNTER 2023-10-13 12:49 | Outpatient (AMB) | payer OTHER, SELFPAY ==
--- NOTE | 2023-10-13 12:55 | A.OFFVIS_ITS ---
Vital Signs 10/13/23 12:58 Height 5 ft 6 in Weight 209 lb 10.554 oz BMI 33.8 BP 152/90 H Blood Pressure Location Rt brachial Position Sitting Pulse 98 Pulse Source Pulse Oximeter Intake Visit Reasons: Hypogonadism/LVM Intake Note: Patient present today for Hypogonadism follow up. Practice Management Consultant Required: No Accompanied by: Mother Allergies No Known Allergies Allergy (Verified 10/13/23 12:58) Medication List - Last Reconciled 10/13/23 by Jaziel Mckenzie MD aspirin (Adult Aspirin Regimen) 81 mg PO DAILY levothyroxine 88 mcg PO DAILY 30 days testosterone enanthate (Xyosted) 50 mg (0.5 mL) subcut QWEEK 4 weeks HPI Comments Details: 32 YO Male with an extensive PMHx who is seen in F/U for hypogonadism and a NTMNG. 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 He had a BEAD PREPARER shunt placement for hydrocephalus and suffered a basal ganglia stroke resulting in left-sided weakness. He also was treated with Lupron until the age of 14 due to precocious puberty. Later in adulthood he developed hypogonadism. He had imaging of his brain 07/21/2021 at [facility] in [place], [place], but no mention was made of the pituitary. Currently using Xyosted subcutaneous testosterone 50 mg q 2 weeks. He was previously over-replaced on Xyosted 75 mg once a week. His SHBG levels are quite low, and his Total testosterone was the only parameter being followed. His Free testosterone levels were significantly elevated. He did develop elevated Estrogen levels due to increased aromatization of Testosterone. He was started on Armidex 1 mg PO daily. He has significant gynecomastia, which he states developed many years ago. He underwent bilateral mammograms, which did reveal a small mass within the left breast. He was referred to Dr. Madison who recommended monitoring with q6 months mammograms. His PCP is managing this. After his initial visit with me we decreased his dose of xyosted to his current dose of 50 mg once a week. He is somewhat shy with his Father present while discussing libido and erections. Sense of smell intact. Denies headache or visual changes. Denies galactorrhea. History of DVT or PE: Denies, and no symptoms of swelling or pain in the extrmities or SOB. PSA: 12/31/2021 0.39 H/H: 12/31/2021 15.7/47.2% 2) NTMNG and hypothyroidism: He has a non-toxic multinodular thyroid. He underwent FNA biopsy of a R lobe nodule, with cytology suspicious for follicular neoplasm. Affirma was benign. He opted for a R hemithyroidectomy, and underwent a R lobectomy with Dr. Eugene 10/04/2018 with benign pathology. Postoperatively he did develop hypothyroidism, and remains on levothyroxine 88 mcg PO daily. TSH is in the hypothyroid range, and he admits this is due to poor compliance. He has multiple subcentimeter nodules within the L lobe of the thyroid. He does have a history of radiation to the head as a child. Thyroid US: 04/02/2021 Right Thyroid Lobe: Removed. Left Thyroid Lobe: 2.8 x 1.2 x 1.4 cm, volume 2.4 mL. Previously 2.9 x 1.1 x 1.3 cm, volume 2.2 mL. Parenchyma: The gland echotexture is heterogeneous. Thyroid vascularity is normal. Isthmus: 0.3 cm in maximum AP dimension. Previously 0.4 cm. Estimated total number of nodules greater than or equal to 1 cm: 0. Case Loader Operator nodules are described as follows: 1.? Location: Left mid. ?? ? Size: 0.57 x 0.37 x 0.46 cm, volume 0.05 mL. ?? ? Previously: Not seen previously. ?? ? Nodule characteristics: ?? ? Composition: Solid/almost completely solid (2). ?? ? Echogenicity: Hypoechoic (2). ?? ? Shape: Not taller than wide (0). ?? ? Margins: Smooth (0). ?? ? Echogenic Foci: None (0). ?? ? ACR TI-RADS total points: 4 ?? ? ACR TI-RADS category: 4 ? Significant change in size (>/= 20% in 2 dimensions and minimal increase of 2 mm or 50% or greater increase in volume): None ?? ? Change in features: Not applicable ?? ? Change in ACR TI-RADS risk category: Not applicable 2.? Location: Left mid. ?? ? Size: 0.61 x 0.45 x 0.65 cm, volume 0.09 mL. ?? ? Previously: 0.59 x 0.58 x 0.51 cm, volume 0.09 mL. ?? ? Nodule characteristics: ?? ? Composition: Solid/almost completely solid (2). ?? ? Echogenicity: Hypoechoic (2). ?? ? Shape: Not taller than wide (0). ?? ? Margins: Smooth (0). ?? ? Echogenic Foci: None (0). ? ACR TI-RADS total points: 4 ?? ? ACR TI-RADS category: 4 ? Significant change in size (>/= 20% in 2 dimensions and minimal increase of 2 mm or 50% or greater increase in volume): None ?? ? Change in features: Not applicable ?? ? Change in ACR TI-RADS risk category: Not applicable 3.? Location: Left lower pole. ?? ? Size: 0.46 x 0.28 x 0.52 cm, volume 0.04 mL. ?? ? Previously: Not seen previously. ?? ? Nodule characteristics: ?? ? Composition: Solid/almost completely solid (2). ?? ? Echogenicity: Hypoechoic (2). ?? ? Shape: Not taller than wide (0). ?? ? Margins: Smooth (0). ?? ? Echogenic Foci: None (0).? ACR TI-RADS total points: 4 ?? ? ACR TI-RADS category: 4 ? Significant change in size (>/= 20% in 2 dimensions and minimal increase of 2 mm or 50% or greater increase in volume): None ?? ? Change in features: Not applicable ?? ? Change in ACR TI-RADS risk category: Not applicable NODES: No lymphadenopathy is seen in the tissue surrounding the thyroid gland. Labs: Laboratory Tests 07/07/21 12/31/21 12/31/21 07:40 06:11 06:11 Hgb 15.7 Hct 47.2 Sodium 138 Potassium 4.3 Creatinine 0.88 Estimated GFR > 60 Osmolality Triglycerides 168 Cholesterol 200 LDL Cholesterol Direct LDL Cholesterol, Calc 135 HDL Cholesterol 32 Prostate Specific Ag 0.39 25-OH Vitamin D Total 47.8 TSH 6.46 H Free T4 0.76 Total T3 Prolactin Sex Hormone Bind Glob Random Cortisol ACTH 32 12/31/21 12/31/21 12/31/21 06:11 06:11 06:11 Hgb Hct Sodium Potassium Creatinine Estimated GFR Osmolality 295 Triglycerides Cholesterol LDL Cholesterol Direct 144 H LDL Cholesterol, Calc HDL Cholesterol Prostate Specific Ag 25-OH Vitamin D Total TSH Free T4 Total T3 109 Prolactin 8.4 Sex Hormone Bind Glob 15 Random Cortisol 20.9 ACTH He is currently on Xyosted 50 mg Q wkly Good libido . No problems with errection As well as levothyroxine 88 mcg for hypothyroidism PFSH Medical History Gynecomastia HLD (hyperlipidemia) Hypogonadotropic hypogonadism Hypopituitarism Non-toxic multinodular goiter Obesity (BMI 30-39.9) Post-surgical hypothyroidism Seizure Vitamin D deficiency Surgical History History of ventriculoperitoneal shunting Hx of brain surgery History of thyroidectomy, subtotal Family History Father No problems noted. Mother No problems noted. Social History Alcohol intake: current Alcohol intake frequency: holidays/special occasions only Patient Tobacco Use Status: Never used Tobacco Assessment & Plan Assessment & Plan (1) Non-toxic multinodular goiter: Code(s): E04.2 - Nontoxic multinodular goiter Category: Medical Plan: History of subcentimeter nodules with hypothyroidism. Clinically and biochemically euthyroid 88 mcg levothyroxine In terms of the thyroid, patient returned to the care of his primary care provider and returned back to endocrinology as needed (2) Hypogonadotropic hypogonadism: Code(s): E23.0 - Hypopituitarism Category: Medical Plan: Is a 32-year-old white male with a history of? 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 Currently on intramuscular Xyosted 50 mg q.month. adrenocortical axis was normal. Trough is low normal Plan is to check the peak testosterone level when available adjust testosterone accordingly. May consider decreasing the interval between testosterone injections to 5 days considering the low normal trough testosterone. I also recommended the patient talk to his primary care provider about getting a sleep study considering that he has intermittent snoring and he is on testosterone Coding Level of Care Code Est Pt Level 3 (57402) Diagnoses Non-toxic multinodular goiter E04.2 Hypogonadotropic hypogonadism E23.0
[2023-10-13 12:58] VITALS: BP 152/90; PULSE 98; BMI 33.8
== END 2023-10-13 13:16 | disposition home or self-care (01) ==
PROVIDERS: PCP Internal Medicine; Visit Provider Internal Medicine Endocrinology, Diabetes & Metabolism
DX: E04.2 Nontoxic multinodular goiter (principal); E23.0 Hypopituitarism
CPT/HCPCS: 99213

== ENCOUNTER → 2023-10-13 12:49 | Outpatient (BNVA) | payer OTHER, SELFPAY | PROVIDERS: PCP Internal Medicine; Visit Provider Internal Medicine Endocrinology, Diabetes & Metabolism | DX: E03.9 Hypothyroidism, unspecified (principal); E04.2 Nontoxic multinodular goiter; E23.0 Hypopituitarism | CPT/HCPCS: 99212 ==

== ENCOUNTER 2023-11-08 09:25 | Outpatient (AMB) | payer OTHER, SELFPAY ==
[2023-11-08 09:27] VITALS: BP 128/72; PULSE 85; O2SAT 99; BMI 33.8
--- NOTE | 2023-11-08 09:27 | MHC.OFFVIS ---
Vital Signs 11/08/23 09:27 Height 5 ft 6 in Weight 209 lb 7.026 oz BMI 33.8 BP 128/72 Blood Pressure Location Rt brachial Position Sitting Pulse 85 Pulse Source Doppler Pulse Oximetry (%) 99 Oxygen Delivery Method Room Air Intake Visit Reasons: sleep apnea Allergies No Known Allergies Allergy (Verified 11/08/23 09:32) HPI HPI sleep apnea: Details: 33-year-old gentleman with underlying history of resection of brain tumor as an , and again as a toddler referred for evaluation of possible underlying sleep apneas. At this time patient denies any sleep-related concerns or complaints, specifically difficulty falling asleep, difficulty staying asleep, unrestful sleep, or daytime sleepiness. [facility] Medical History (Updated 11/08/23 @ 09:49 by Johan Man MD) HLD (hyperlipidemia) Gynecomastia Vitamin D deficiency Obesity (BMI 30-39.9) Hypopituitarism Non-toxic multinodular goiter Post-surgical hypothyroidism Seizure Hypogonadotropic hypogonadism Surgical History (Updated 11/08/23 @ 09:49 by Johan Man MD) History of ventriculoperitoneal shunting Hx of brain surgery History of thyroidectomy, subtotal Family History Father No problems noted. Mother No problems noted. Social History Alcohol intake: current Alcohol intake frequency: holidays/special occasions only Patient Tobacco Use Status: Never used Tobacco Review of Systems Const Denies daytime sleepiness, Denies fatigue and Denies stops breathing during sleep Endo Denies fatigue Physical Exam Vital Signs: Last Vital Signs Pulse 85 11/08/23 09:27 BP 128/72 11/08/23 09:27 Pulse Ox 99 11/08/23 09:27 Oxygen Delivery Method Room Air 11/08/23 09:27 BMI result Body Mass Index 33.8 Const General: no acute distress and alert Nutritional Appearance: obese Orientation/consciousness: Other orientation findings ( oriented) HEENT Head: Yes atraumatic Eyes General: appearance normal, both eyes and all related structures Sclerae: sclerae normal EOM: EOMs intact bilaterally Neck Neck: Yes supple Lymphatic: no lymphadenopathy noted Resp Effort & Inspection: normal respiratory effort and no use of accessory muscles Auscultation: clear to auscultation bilaterally Cardio Rate: regular rate Rhythm: regular rhythm Heart sounds: no gallops, no murmurs and no rubs Skin General skin exam: other ( warm) Extrem General: No clubbing, No cyanosis and No edema Assessment & Plan Assessment & Plan (1) Hx of brain surgery: Comment: 2x Code(s): Z98.890 - Other specified postprocedural states Category: Medical (2) Central sleep apnea: Code(s): G47.31 - Primary central sleep apnea Category: Medical (3) Obstructive sleep apnea: Code(s): G47.33 - Obstructive sleep apnea (adult) (pediatric) Category: Medical Plan With underlying history of brain surgery x2 and surgical hypopituitarism, may underlying sleep apnea, central versus obstructive, will obtain in lab sleep study. Orders: Orders RT PSG in-lab sleep study Today G47.31 - Primary central sleep apnea, G47.33 - Obstructive sleep apnea (adult) (pediatric), Z98.890 - Other specified postprocedural states Coding Level of Care Code New Pt Level 3 (06711) Diagnoses Hx of brain surgery Z98.890 Central sleep apnea G47.31 Obstructive sleep apnea G47.33
== END 2023-11-08 09:48 | disposition home or self-care (01) ==
PROVIDERS: PCP Internal Medicine; Visit Provider Internal Medicine Pulmonary Disease
DX: Z98.890 Other specified postprocedural states (principal); G47.31 Primary central sleep apnea; G47.33 Obstructive sleep apnea (adult) (pediatric)
CPT/HCPCS: 99203

== ENCOUNTER → 2023-11-08 09:25 | Outpatient (BNVA) | payer OTHER, SELFPAY | PROVIDERS: PCP Internal Medicine; Visit Provider Internal Medicine Pulmonary Disease | DX: G47.31 Primary central sleep apnea (principal); G47.33 Obstructive sleep apnea (adult) (pediatric); Z98.890 Other specified postprocedural states | CPT/HCPCS: 99202 ==

== ENCOUNTER 2023-11-30 07:54 | Outpatient (REF) | payer OTHER, SELFPAY ==
[2023-11-30 08:38] LABS: Hematocrit 49.3 % (42.0-52.0); Hemoglobin 16.6 g/dl (14.0-18.0)
[2023-12-08 14:48] LABS: Testosterone, Free 131.2 pg/mL (35.0-155.0); Testosterone, Total 709 ng/dL (250-1100)
== END 2023-11-30 07:55 | disposition home or self-care (01) ==
LOC: HO.LAB 07:54
PROVIDERS: PCP Internal Medicine; Visit Provider Internal Medicine Endocrinology, Diabetes & Metabolism
DX: E23.0 Hypopituitarism (principal)
CPT/HCPCS: 36415; 84402; 84403; 85014; 85018

== ENCOUNTER 2023-12-02 08:03 | Outpatient (REF) | payer OTHER, SELFPAY ==
[2023-12-02 08:26] LABS: MANUAL DIFF FLAG NO
[2023-12-02 08:40] LABS: Basophils Absolute Auto 0.1 X10*3/uL (0.0-0.2); Basophils Percent Auto 0.8 % (0-2); Eosinophils Absolute Auto 0.1 X10*3/uL (0.0-0.4); Eosinophils Percent Auto 1.4 % (0-4); Hematocrit 50.4 % (42.0-52.0); Hemoglobin 17.2 g/dl (14.0-18.0); Imm Gran Abs Auto 0.07 X10*3/uL (0.00-0.03); Imm Gran Pct Auto 0.7 % (0.0-0.4); Lymphocytes Percent Auto 29.3 % (20-40); Mean Corpuscular HGB Conc 34.1 g/dl (31.0-36.0); Mean Corpuscular Hemoglobin 29.7 pg (27.0-33.0); Mean Platelet Volume 9.3 fL (9.4-12.4); Monocytes Absolute Auto 0.7 X10*3/uL (0.1-1.2); Monocytes Percent Auto 7.1 % (2-11); Neutrophils Absolute Auto 6.1 x10*3/uL (2.0-8.3); Neutrophils Percent Auto 60.7 % (45-73); Platelet Count 286 X10*3/uL (160-400); Red Blood Count 5.79 X10*6/uL (4.60-5.80); Red Cell Distribution Width 13.4 % (11.0-16.0); White Blood Count 10.1 X10*3/uL (4.8-10.8)
[2023-12-02 09:19] LABS: Alanine Aminotransferase 31 U/L (0-40); Albumin Level 4.4 g/dL (3.5-5.0); Alkaline Phosphatase 107 U/L (39-117); Anion Gap 11 (12-20); Aspartate Amino Transferase 13 U/L (5-37); Bilirubin Total 0.2 mg/dL (0.0-1.0); Blood Urea Nitrogen 12 mg/dL (9-16); Calcium 9.4 mg/dL (8.4-10.2); Carbon Dioxide 22 mmol/L (22-29); Chloride 110 mmol/L (96-108); Cholesterol 178 mg/dL (<200); Estimated Glomerular Filt Rate > 60; Glucose Fasting 134 mg/dL (60-99); HDL Cholesterol 28 mg/dL (>40); LDL Cholesterol Calculated 124 mg/dL (<100); Potassium 3.8 mmol/L (3.3-5.1); Sodium 139 mmol/L (135-145); Total Protein 7.1 g/dL (6.5-8.0); Triglycerides 131 mg/dL (<150)
[2023-12-02 09:36] LABS: Thyroid Stimulating Hormone 3.14 uIU/mL (0.32-4.0); Vitamin D 25-OH Total 39.1 ng/mL (>30)
== END 2023-12-02 08:04 | disposition home or self-care (01) ==
LOC: HO.LAB 08:03
PROVIDERS: Absent Provider Internal Medicine Endocrinology, Diabetes & Metabolism; PCP Internal Medicine; Visit Provider Internal Medicine
DX: E29.1 Testicular hypofunction (principal); E66.09 Other obesity due to excess calories; E89.0 Postprocedural hypothyroidism; I10 Essential (primary) hypertension
CPT/HCPCS: 36415; 80053; 80061; 82306; 84443; 85025

== ENCOUNTER 2024-02-23 09:51 | Outpatient (AMB) | payer OTHER, SELFPAY ==
--- NOTE | 2024-02-23 09:53 | MHC.OFFVIS ---
Vital Signs 02/23/24 09:59 Height 5 ft 6 in Weight 205 lb BMI 33.1 BP 136/74 Blood Pressure Location Rt brachial Position Sitting Pulse 65 Pulse Source Pulse Oximeter Intake Visit Reasons: Hypogandism Intake Note: Patient present today for Hypogandism follow up. 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 He had a STOCK FEEDER shunt placement for hydrocephalus and suffered a basal ganglia stroke resulting in left-sided weakness. He also was treated with Lupron until the age of 14 due to precocious puberty. Later in adulthood he developed hypogonadism. He had imaging of his brain 07/21/2021 at [facility] in [place], [place], but no mention was made of the pituitary. Currently using Xyosted subcutaneous testosterone 50 mg q 2 weeks. He was previously over-replaced on Xyosted 75 mg once a week. His SHBG levels are quite low, and his Total testosterone was the only parameter being followed. His Free testosterone levels were significantly elevated. He did develop elevated Estrogen levels due to increased aromatization of Testosterone. He was started on Armidex 1 mg PO daily. He has significant gynecomastia, which he states developed many years ago. He underwent bilateral mammograms, which did reveal a small mass within the left breast. He was referred to Dr. Madison who recommended monitoring with q6 months mammograms. His PCP is managing this. After his initial visit with me we decreased his dose of xyosted to his current dose of 50 mg once a week. He is somewhat shy with his Father present while discussing libido and erections. Sense of smell intact. Denies headache or visual changes. Denies galactorrhea. History of DVT or PE: Denies, and no symptoms of swelling or pain in the extrmities or SOB. PSA: 12/31/2021 0.39 H/H: 12/31/2021 15.7/47.2% 2) NTMNG and hypothyroidism: He has a non-toxic multinodular thyroid. He underwent FNA biopsy of a R lobe nodule, with cytology suspicious for follicular neoplasm. Affirma was benign. He opted for a R hemithyroidectomy, and underwent a R lobectomy with Dr. Eugene 10/04/2018 with benign pathology. Postoperatively he did develop hypothyroidism, and remains on levothyroxine 88 mcg PO daily. TSH is in the hypothyroid range, and he admits this is due to poor compliance. He has multiple subcentimeter nodules within the L lobe of the thyroid. He does have a history of radiation to the head as a child. Thyroid US: 04/02/2021 Right Thyroid Lobe: Removed. Left Thyroid Lobe: 2.8 x 1.2 x 1.4 cm, volume 2.4 mL. Previously 2.9 x 1.1 x 1.3 cm, volume 2.2 mL. Parenchyma: The gland echotexture is heterogeneous. Thyroid vascularity is normal. Isthmus: 0.3 cm in maximum AP dimension. Previously 0.4 cm. Estimated total number of nodules greater than or equal to 1 cm: 0. Steam Box Tender nodules are described as follows: 1.? Location: Left mid. ?? ? Size: 0.57 x 0.37 x 0.46 cm, volume 0.05 mL. ?? ? Previously: Not seen previously. ?? ? Nodule characteristics: ?? ? Composition: Solid/almost completely solid (2). ?? ? Echogenicity: Hypoechoic (2). ?? ? Shape: Not taller than wide (0). ?? ? Margins: Smooth (0). ?? ? Echogenic Foci: None (0). ?? ? ACR TI-RADS total points: 4 ?? ? ACR TI-RADS category: 4 ? Significant change in size (>/= 20% in 2 dimensions and minimal increase of 2 mm or 50% or greater increase in volume): None ?? ? Change in features: Not applicable ?? ? Change in ACR TI-RADS risk category: Not applicable 2.? Location: Left mid. ?? ? Size: 0.61 x 0.45 x 0.65 cm, volume 0.09 mL. ?? ? Previously: 0.59 x 0.58 x 0.51 cm, volume 0.09 mL. ?? ? Nodule characteristics: ?? ? Composition: Solid/almost completely solid (2). ?? ? Echogenicity: Hypoechoic (2). ?? ? Shape: Not taller than wide (0). ?? ? Margins: Smooth (0). ?? ? Echogenic Foci: None (0). ? ACR TI-RADS total points: 4 ?? ? ACR TI-RADS category: 4 ? Significant change in size (>/= 20% in 2 dimensions and minimal increase of 2 mm or 50% or greater increase in volume): None ?? ? Change in features: Not applicable ?? ? Change in ACR TI-RADS risk category: Not applicable 3.? Location: Left lower pole. ?? ? Size: 0.46 x 0.28 x 0.52 cm, volume 0.04 mL. ?? ? Previously: Not seen previously. ?? ? Nodule characteristics: ?? ? Composition: Solid/almost completely solid (2). ?? ? Echogenicity: Hypoechoic (2). ?? ? Shape: Not taller than wide (0). ?? ? Margins: Smooth (0). ?? ? Echogenic Foci: None (0).? ACR TI-RADS total points: 4 ?? ? ACR TI-RADS category: 4 ? Significant change in size (>/= 20% in 2 dimensions and minimal increase of 2 mm or 50% or greater increase in volume): None ?? ? Change in features: Not applicable ?? ? Change in ACR TI-RADS risk category: Not applicable NODES: No lymphadenopathy is seen in the tissue surrounding the thyroid gland. Labs: Laboratory Tests 07/07/21 12/31/21 12/31/21 07:40 06:11 06:11 Hgb 15.7 Hct 47.2 Sodium 138 Potassium 4.3 Creatinine 0.88 Estimated GFR > 60 Osmolality Triglycerides 168 Cholesterol 200 LDL Cholesterol Direct LDL Cholesterol, Calc 135 HDL Cholesterol 32 Prostate Specific Ag 0.39 25-OH Vitamin D Total 47.8 TSH 6.46 H Free T4 0.76 Total T3 Prolactin Sex Hormone Bind Glob Random Cortisol ACTH 32 12/31/21 12/31/21 12/31/21 06:11 06:11 06:11 Hgb Hct Sodium Potassium Creatinine Estimated GFR Osmolality 295 Triglycerides Cholesterol LDL Cholesterol Direct 144 H LDL Cholesterol, Calc HDL Cholesterol Prostate Specific Ag 25-OH Vitamin D Total TSH Free T4 Total T3 109 Prolactin 8.4 Sex Hormone Bind Glob 15 Random Cortisol 20.9 ACTH He is currently on Xyosted 50 mg Q 5 days Good libido . No problems with errection . Sleep study scheduled at end of mo. [facility] Medical History (Updated 11/08/23 @ 09:49 by Johan Man MD) HLD (hyperlipidemia) Gynecomastia Vitamin D deficiency Obesity (BMI 30-39.9) Hypopituitarism Non-toxic multinodular goiter Post-surgical hypothyroidism Seizure Hypogonadotropic hypogonadism Surgical History History of ventriculoperitoneal shunting Hx of brain surgery History of thyroidectomy, subtotal Family History Father No problems noted. Mother No problems noted. Social History Alcohol intake: current Alcohol intake frequency: holidays/special occasions only Patient Tobacco Use Status: Never used Tobacco Physical Exam Vital Signs: Last Vital Signs Pulse 65 02/23/24 09:59 BP 136/74 02/23/24 09:59 BMI result Body Mass Index 33.1 Assessment & Plan Assessment & Plan (1) Hypogonadotropic hypogonadism: Code(s): E23.0 - Hypopituitarism Category: Medical Plan: Is a 32-year-old white male with a history of? 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 Currently on intramuscular Xyosted 50 mg q.5 days . With normal peak and trough testosterone Plan is to continue the current therapy I also will follow-up the sleep study ordered by the patient's primary care provider Orders: Orders Testosterone, Free/Total 6 Months E23.0 - Hypopituitarism Hematocrit 6 Months E23.0 - Hypopituitarism Hemoglobin 6 Months E23.0 - Hypopituitarism Testosterone, Free/Total 5 Months E23.0 - Hypopituitarism Coding Level of Care Code Est Pt Level 3 (39338) Diagnoses Hypogonadotropic hypogonadism E23.0
[2024-02-23 09:59] VITALS: BP 136/74; PULSE 65; BMI 33.1
--- OUTSIDE RECORDS SUMMARY | 2024-02-23 10:01 | XMS_ITS | Patient Health Record ---
Author Organization Jaziel Dana Preston DO, FAC Address [address] [place] [id number] Care Team Providers Care Editing Internship Name Role Phone Jaziel Johnston Primary Care Provider ALLERGIES No Known Allergies RESULTS Component Value Reference Range Notes Follicle Stimulating Hormone Reviewed date:05/21/2023 09:05:57 AM Interpretation:Normal Performing Lab:[facility], [address] [place] [phone] Notes/Report: Follicle Stimulating Hormone 8.1 1.4-12.8 mIU /mL THIS TEST WAS PERFORMED AT: [facility] [address] [place] [phone] MATIAS JOHNSON MD Lutenizing Hormone Reviewed date:05/21/2023 09:07:17 AM Interpretation:Normal Performing Lab:[facility], [address] [place] [phone] Notes/Report: Lutenizing Hormone 3.7 1.5-9.3 mIU/mL THIS TEST WAS PERFORMED AT: [facility] [address] [place] [phone] MATIAS JOHNSON MD Cortisol Random Reviewed date:05/20/2023 01:20:37 PM Interpretation:Abnormal Performing Lab:[facility], [address] [place] [phone] Notes/Report: Cortisol Random 20.6 Reference Range*: Before 10 am 6.2-19.4 ug/dL After 5 pm 2.3-11.9 ug/dL *Please interpret above results accordingly. This test was performed using the Damon chemiluminescent method. Values obtained from different assay methods cannot be used interchangeably. Patients receiving fludrocortisone, prednisolone or prednisone may show artificially elevated cortisol values due to cross-reactivity. Testosterone, Free/Total Reviewed date:06/15/2023 09:17:13 AM Interpretation:Abnormal Performing Lab:[facility], [address] [place] [phone] Notes/Report: Testosterone, Total [phone] ng/dL For additional information, please refer to http://Andrew Alliance.Jiff/faq/ [email or web address] (This link is being provided for informational/ educational purposes only.) This test was developed and its analytical performance characteristics have been determined by [facility] [place], [place]. It has not been cleared or approved by the U.S. Food and Drug Administration. This assay has been validated pursuant to the CLIA regulations and is used for clinical purposes. Testosterone, Free 31.7 35.0-155.0 pg/mL This test was developed and its analytical performance characteristics have been determined by [facility] [place]. It has not been cleared or approved by the U.S. Food and Drug Administration. This assay has been validated pursuant to the CLIA regulations and is used for clinical purposes. THIS TEST WAS PERFORMED AT: [facility] [address] [address] NÉSTOR HOFFMANN MD,PHD Hemoglobin Reviewed date:10/06/2023 12:05:44 PM Interpretation:Normal Performing Lab:[facility], [address] [place] [phone] Notes/Report: Hemoglobin 16.4 14.0-18.0 g/dl Hematocrit Reviewed date:10/06/2023 12:06:31 PM Interpretation:Normal Performing Lab:[facility], [address] [place] [phone] Notes/Report: Hematocrit 47.9 42.0-52.0 % Testosterone, Free/Total Reviewed date:10/11/2023 10:53:10 PM Interpretation:Normal Performing Lab:[facility], [address] [place] [phone] Notes/Report: Testosterone, Total 931 841-1258 ng/dL For additional information, please refer to http://education.ROLI.Calcivis/faq/ [email or web address] (This link is being provided for informational/ educational purposes only.) This test was developed and its analytical performance characteristics have been determined by [facility] [place]. It has not been cleared or approved by the U.S. Food and Drug Administration. This assay has been validated pursuant to the CLIA regulations and is used for clinical purposes. Testosterone, Free 50.9 35.0-155.0 pg/mL This test was developed and its analytical performance characteristics have been determined by [facility] [place]. It has not been cleared or approved by the U.S. Food and Drug Administration. This assay has been validated pursuant to the CLIA regulations and is used for clinical purposes. THIS TEST WAS PERFORMED AT: [facility] [address] NÉSTOR HOFFMANN MD,PHD Hemoglobin Reviewed date:11/30/2023 09:19:14 AM Interpretation:Normal Performing Lab:[address] [phone] Notes/Report: Hemoglobin 16.6 14.0-18.0 g/dl Hematocrit Reviewed date:11/30/2023 09:19:34 AM Interpretation:Normal Performing Lab:[address] [phone] Notes/Report: Hematocrit 49.3 42.0-52.0 % Testosterone, Free/Total Reviewed date:12/08/2023 03:23:12 PM Interpretation:Normal Performing Lab:[address] [phone] Notes/Report: Testosterone, Total 950 144-4667 ng/dL For additional information, please refer to http://education.ROLI.Calcivis/faq/ [email or web address] (This link is being provided for informational/ educational purposes only.) This test was developed and its analytical performance characteristics have been determined by [facility] [place]. It has not been cleared or approved by the U.S. Food and Drug Administration. This assay has been validated pursuant to the CLIA regulations and is used for clinical purposes. Testosterone, Free 131.2 35.0-155.0 pg/mL This test was developed and its analytical performance characteristics have been determined by [facility] [place] [place]. It has not been cleared or approved by the U.S. Food and Drug Administration. This assay has been validated pursuant to the CLIA regulations and is used for clinical purposes. THIS TEST WAS PERFORMED AT: [facility] [address] [place] [address] NÉSTOR HOFFMANN MD,PHD Complete Blood Count Auto Di ff Reviewed date:12/02/2023 11:17:04 AM Interpretation:Normal Performing Lab:[facility], [address] [place] [phone] Notes/Report: White Blood Count 10.1 4.8-10.8 X10*3/uL Red Blood Count 5.79 4.60-5.80 X10*6/uL Hemoglobin 17.2 14.0-18.0 g/dl Hematocrit 50.4 42.0-52.0 % Mean Corpuscular Volume 87.0 80.0-98.0 fL Mean Corpuscular Hemoglobin 29.7 27.0-33.0 pg Mean Corpuscular HGB Conc 34.1 31.0-36.0 g/dl Red Cell Distribution Width 13.4 11.0-16.0 % Platelet Count 286 160-400 X10*3/uL Mean Platelet Volume 9.3 9.4-12.4 fL Neutrophils Percent Auto 60.7 45-73 % Imm Gran Pct Auto 0.7 0.0-0.4 % Lymphocytes Percent Auto 29.3 20-40 % Monocytes Percent Auto 7.1 2-11 % Eosinophils Percent Auto 1.4 0-4 % Basophils Percent Auto 0.8 0-2 % NRBC Pct Auto 0.0 0.0-0.2 /100WBC Neutrophils Absolute Auto 6.1 2.0-8.3 x10*3/u L Imm Gran Abs Auto 0.07 0.00-0.03 X10*3/uL Lymphocytes Absolute Auto 3.0 1.2-4.9 X10*3/u L Monocytes Absolute Auto 0.7 0.1-1.2 X10*3/uL Eosinophils Absolute Auto 0.1 0.0-0.4 X10*3/u L Basophils Absolute Auto 0.1 0.0-0.2 X10*3/uL NRBC Abs Auto 0.000 0.0-0.012 X10*3/uL Comprehensive Anderson. Panel Fa st Reviewed date:12/02/2023 11:17:04 AM Interpretation:Abnormal Performing Lab:[facility], [address] [place] [phone] Notes/Report: Sodium 139 135-145 mmol/L Potassium 3.8 3.3-5.1 mmol/L Chloride 110 96-108 mmol/L Carbon Dioxide 22 22-29 mmol/L Anion Gap 11 12-20 Blood Urea Nitrogen 12 9-16 mg/dL Creatinine 0.87 0.5-1.4 mg/dL Estimated Glomerular Filt Rate > 60 NOTE: For -[place] individuals, multiply the result by 1.210. Chronic Kidney Disease: Estimated GFR < 60 mL/min/1.73m2 Severe Kidney Disease: Estimated GFR < 15 mL/min/1.73m2 Glucose Fasting 134 60-99 mg/dL A fasting glucose of 126 mg/dl or greater on more than one occasion is considered diagnostic of diabetes. Calcium 9.4 8.4-10.2 mg/dL Bilirubin Total 0.2 0.0-1.0 mg/dL Aspartate Amino Transferase 13 5-37 U/L Alanine Aminotransferase 31 0-40 U/L Total Protein 7.1 6.5-8.0 g/dL Albumin Level 4.4 3.5-5.0 g/dL Alkaline Phosphatase 107 39-117 U/L Lipid Panel Reviewed date:12/02/2023 11:17:04 AM Interpretation:Abnormal Performing Lab:[facility], [address] [place] [phone] Notes/Report: Triglycerides 131 <150 mg/dL Desirable Triglyceride: less than 150 mg/dL Borderline High Triglyceride 150-199 mg/dL High Triglyceride: 200-499 mg/dL Very High Triglyceride: greater than or equal to 5OO mg/dL Cholesterol 178 <200 mg/dL Desirable Cholesterol: less than 200 mg/dL Borderline High Cholesterol: 200-239 mg/dL High Cholesterol: greater than 239 mg/dL LDL Cholesterol Calculated 124 <100 mg/dL Desirable LDL: less than 100 mg/dL Near Optimal/Above Optimal LDL: 110-129 mg/dL Borderline High LDL: 130-159 mg/dL High LDL: 160-189 mg/dL Very High LDL: greater than or equal to 190 mg/dL HDL Cholesterol 28 >40 mg/dL Desirable HDL: greater than 40 mg/dL Note: This HDL assay may give artificially low results in patients with liver disease. Vitamin D 25-OH Total Reviewed date:12/02/2023 11:17:04 AM Interpretation:Normal Performing Lab:[address] [phone] Notes/Report: Vitamin D 25-OH Total 39.1 >30 ng/mL Health Based Reference Values* < 20 ng/mL Deficient 20-30 ng/mL Insufficient > 30 ng/mL Sufficient *Sebastian PONCE. N Engl J Med. 2007;357:266-280 Care must be taken in interpreting Vitamin D results from different laboratories and methodologies. Published data demonstrated that results from patients undergoing hemodialysis may show a negative bias when tested with various automated 25-OH vitamin D assays when compared to LC-MS/MS. When testing samples from patients whose predominant form of Vitamin D is Vitamin D2, such as patients receiving Vitamin D2 supplementation, results that are subtherapeutic should be confirmed with another method such as LC-MS/MS. Thyroid Stimulating Hormone Reviewed date:12/02/2023 11:17:04 AM Interpretation:Normal Performing Lab:[facility], [address] [place] [phone] Notes/Report: Thyroid Stimulating Hormone 3.14 0.32-4.0 uIU/ mL Note: A sustained TSH level above 2.5 uIU/mL may warrant further investigation. TSH 3rd Generation ([facility]) REASON FOR REFERRAL Reason sleep study Diagnosis 1 Sleep apnea in adult (G47.30) Referral Organization Jaziel Burns, FACP Referring Provider First Name Jaziel Referring Provider Last Name Preston Referring Provider Speciality Internal M edicine Referred Provider Johan Man Referred Provider Specialty Pulmonary Di seases General Notes Alecia Gray 01:31:28 PM EDT > Referral faxed prior to scheduling Referral Priority Routine Referral Appointment Date 11/08/2023 MEDICATIONS Medication SIG (Take, Route, Frequency, Duration) Notes Start Date End Date Status Clotrimazole-Betamethasone 1-0.05 % 1 application to affected area Externally Twice a day 11/15/2023 Active amLODIPine Besylate 5 MG 1 tablet Orally Once a day for 90 days 12/01/2023 Active Levothyroxine Sodium 75 MCG 1 tablet in the morning on an empty stomach Orally Once a day Active Vitamin D (Cholecalciferol) 50 MCG (2000 UT) 1 capsule Orally Once a day Active Ibuprofen 800 MG 1 tablet as needed O rally Three times a day 11/02/2012 Active Aspirin 81 MG 1 tablet Orally Once a day Active Xyosted 75 MG/0.5ML 0.5 ml Subcutaneous Once every 5 days Active IMMUNIZATIONS Vaccine Route Administration Date Status Comme nts PPD ID Intradermal 11/02/2012 Administered PPD Unknown 11/04/2012 Administered Influenza Quad IM Intramuscular 12/31/2014 Administered Influenza Quad IM Intramuscular 11/11/2018 Administered Influenza Quad IM Intramuscular 12/05/2020 Administered COVID-19 Pfizer BioNTech Unknown 06/10/2020 Administere d COVID-19 Pfizer BioNTech Unknown 07/01/2020 Administere d SOCIAL HISTORY Tobacco Use: Social History Observation Description Date Details (start date - stop date) Never Smoker NA - NA Sex Assigned At : Social History Observation Description Sex Assigned At Unknown Tobacco Use/Smoking Question Answer Notes Patient is a nonsmoker Additional Findings: Tobacco Non-User Cu rrent non-smoker, currently using no form of tobacco Alcohol Screen Question Answer Notes Did you have a drink contain ing alcohol in the past year? Yes How often did you have a dri nk containing alcohol in the past year? 2 to 4 times a month (2 points) How many drinks did you have on a typical day when you were drinking in the past year? 1 or 2 drinks (0 point) How often did you have 6 or more drinks on one occasion in the past year? Never (0 point) Points 2 Interpretation Negative PROBLEMS Problem Type ICD Code Onset Dates Problem Status W/U Status Risk SNOMED Code Notes Problem Non morbid obesity due to excess calories (E66.09) Active confirmed 743213312 Problem Postoperative hypothyroidism (E89.0) Active confirmed 23083094 Problem Hypotestosteronism (E29.1) Active confirmed 5922373162688 Problem Primary hypertension (I10) Active confirmed 28543266 VITAL SIGNS Blood pressure diastolic 90 mm Hg 12/01/2023 Height 64 in 12/01/2023 Blood pressure systolic 152 mm Hg 12/01/2023 Weight 213 lbs 12/01/2023 BMI 36.56 kg/m2 12/01/2023 Encounters Encounter Location Date Provider Diagnosis Jaziel Cortez Preston [place], [facility] [address] [place], [place] [phone] 12/01/2023 Jaziel Johnston Hypotestosteronism E 29.1 ; Non morbid obesity due to excess calories E66.09 ; Postoperative hypothyroidism E89.0 and Primary hypertension I10 Jaziel Cortez Preston [place], [facility] [address] [place], [place] [id number] 11/15/2023 Jaziel Johnston Jaziel Cortez Preston [place], [facility] [address] [place], [place] [phone] 12/28/2023 Jaziel Johnston Primary hypertension I10 Jaziel Dana Preston [place], [facility] [address] [place], [place] [phone] 11/15/2023 Jaziel Sheriff Dana Preston [place], [facility] [address] [place], [place] [phone] 01/10/2024 Jaziel Sheriff Dana Preston [place], [facility] [address] [place], [place] [id number] 01/12/2024 Jaziel Johnston ASSESSMENTS Encounter Date Diagnosis Assessment Notes Treatment Notes Treatment Clinical Notes 12/01/2023 Non morbid obesity d ue to excess calories (ICD-10 - E66.09) Refer to for hygiene techniques, community resources, possibly OT referral 12/01/2023 Hypotestosteronism (ICD-10 - E29.1) Follow up with Endocrinology 12/28/2023 Primary hypertension (ICD-10 - I10) 12/01/2023 Postoperative hypothyroidism (ICD-10 - E89.0) 12/01/2023 Primary hypertension (ICD-10 - I10) Low salt diet. Check BP in the office. PLAN OF TREATMENT No Information Insurance Providers Payer Name Payer Address Payer Phone Subscriber Number Group Number Insured Name Patient Relationship to Insured Coverage Start Date Coverage End Date [facility]/LEISA [employer] [address] [address] [place] [address] [id number] Lana Cook Self - patient is the insured [employer] [address] [place], [place] [phone] [id number] Lana Cook Self - patient is the insured MEDICAL (GENERAL) HISTORY Medical History History ICD Code cerebral neuroblastoma, righ t frontal lobe, s/p surgery and RT and chemotherapy, age 11 months s/p STEEL ANALYST shunt cerebrovascular accident hypothyroidism hypotestosteronism Surgical History Surgery Date(Month/Year) crainotomy times two, with tumor removal ventriculoperitoneal shunt
--- OUTSIDE RECORDS SUMMARY | 2024-02-23 10:01 | XMS_ITS ---
Author Organization Jaziel Johnston DO, FACP Address [address] [place], [place] [id number] Care Team Providers Care Compounding Assistant Name Role Phone Jaziel Johnston Primary Care Provider REASON FOR VISIT 6 week f/u Encounters Encounter Location Date Provider Diagnosis Jaziel Johnston DO, FACP [address] [place] [phone] 01/10/2024 Jaziel Johnston PLAN OF TREATMENT No Information
--- OUTSIDE RECORDS SUMMARY | 2024-02-23 10:01 | XMS_ITS ---
Author Organization Jaziel Johnston DO, [facility] Address [address] [place] [phone] Care Team Providers Care Carriage Rider Name Role Phone Jaziel Johnston Primary Care Provider REASON FOR VISIT Refills MEDICATIONS Medication SIG (Take, Route, Frequency, Duration) Notes Start Date End Date Status amLODIPine Besylate 5 MG 1 tablet Orally Once a day for 90 days 12/01/2023 Active Encounters Encounter Location Date Provider Diagnosis Jaziel Johnston DO, [address] [phone] 12/28/2023 Jaziel Johnston Primary hypertension I10 ASSESSMENTS Encounter Date Diagnosis Assessment Notes Treatment Notes Treatment Clinical Notes 12/28/2023 Primary hypertension (ICD-10 - I10) PLAN OF TREATMENT Medication Medication Name Sig Start Date Stop Date Notes amLODIPine Besylate 5 MG 1 tablet Orally Once a day for 90 days 12/01/2023
== END 2024-02-23 10:14 | disposition home or self-care (01) ==
PROVIDERS: PCP Internal Medicine; Visit Provider Internal Medicine Endocrinology, Diabetes & Metabolism
DX: E23.0 Hypopituitarism (principal)
CPT/HCPCS: 99213

== ENCOUNTER → 2024-02-23 09:51 | Outpatient (BNVA) | payer OTHER, SELFPAY | PROVIDERS: PCP Internal Medicine; Visit Provider Internal Medicine Endocrinology, Diabetes & Metabolism | DX: E23.0 Hypopituitarism (principal) | CPT/HCPCS: 99212 ==

== ENCOUNTER → 2024-03-14 20:30 | Outpatient (REF) | payer OTHER, SELFPAY ==
--- OUTSIDE RECORDS SUMMARY | 2024-03-14 22:40 | XMS_ITS ---
Author Organization Jaziel Johnston DO, FACP Address [address] [place], [place] [phone] Care Team Providers Care Painter Supervisor Name Role Phone Jaziel Johnston Primary Care Provider Encounters Encounter Location Date Provider Diagnosis Jaziel Johnston DO, FACP [address] [place] [phone] 01/12/2024 Jaziel Johnston PLAN OF TREATMENT No Information
--- OUTSIDE RECORDS SUMMARY | 2024-03-14 22:40 | XMS_ITS ---
Author Organization Jaziel Johnston DO, [facility] Address [address] [place] [phone] Care Team Providers Care Antique Dealer Name Role Phone Jaziel Johnston Primary Care Provider REASON FOR VISIT Refills MEDICATIONS Medication SIG (Take, Route, Frequency, Duration) Notes Start Date End Date Status amLODIPine Besylate 5 MG 1 tablet Orally Once a day for 90 days 12/01/2023 Active Encounters Encounter Location Date Provider Diagnosis Jaziel Johnston DO, [address] [id number] 12/28/2023 Jaziel Johnston Primary hypertension I10 ASSESSMENTS Encounter Date Diagnosis Assessment Notes Treatment Notes Treatment Clinical Notes 12/28/2023 Primary hypertension (ICD-10 - I10) PLAN OF TREATMENT Medication Medication Name Sig Start Date Stop Date Notes amLODIPine Besylate 5 MG 1 tablet Orally Once a day for 90 days 12/01/2023
== END ==
LOC: HO.SL 20:30
PROVIDERS: PCP Internal Medicine; Visit Provider Internal Medicine Pulmonary Disease
DX: Z13.89 Encounter for screening for other disorder (principal)

== ENCOUNTER 2024-03-16 13:12 | Outpatient (AMB) | payer OTHER, SELFPAY ==
[2024-03-16 13:14] VITALS: BP 150/84; PULSE 85; O2SAT 96; BMI 33.4
--- NOTE | 2024-03-16 13:14 | MHC.OFFVIS ---
Vital Signs 03/16/24 13:14 Height 5 ft 6 in Weight 207 lb 3.752 oz BMI 33.4 BP 150/84 H Blood Pressure Location Rt brachial Position Sitting Pulse 85 Pulse Source Pulse Oximeter Pulse Oximetry (%) 96 Oxygen Delivery Method Room Air Intake Visit Reasons: Sleep apnea/sleep study results Allergies No Known Allergies Allergy (Verified 03/16/24 13:17) HPI HPI Sleep apnea/sleep study results: Details: 33-year-old gentleman with underlying history of resection of brain tumor as an infant, and again as a toddler referred for evaluation of possible underlying sleep apneas. At this time patient denies any sleep-related concerns or complaints, specifically difficulty falling asleep, difficulty staying asleep, unrestful sleep, or daytime sleepiness. After the last office visit patient had sleep study that showed underlying moderate to severe sleep apnea. [facility] Medical History (Updated 11/08/23 @ 09:49 by Johan Man MD) HLD (hyperlipidemia) Gynecomastia Vitamin D deficiency Obesity (BMI 30-39.9) Hypopituitarism Non-toxic multinodular goiter Post-surgical hypothyroidism Seizure Hypogonadotropic hypogonadism Surgical History History of ventriculoperitoneal shunting Hx of brain surgery History of thyroidectomy, subtotal Family History Father No problems noted. Mother No problems noted. Social History Alcohol intake: current Alcohol intake frequency: holidays/special occasions only Patient Tobacco Use Status: Never used Tobacco Review of Systems Const Reports daytime sleepiness, Denies excessive sweating, Denies fatigue, Denies fever(s), Reports lethargy, Denies malaise, Denies night sweats, Denies snoring and Denies weight loss Eyes Denies blurry vision and Denies itchy eyes ENT Denies nasal congestion, Denies post nasal drip, Denies sinus pain, Denies sinus pressure and Denies other ( Thrush) Card Denies chest pain, Denies pedal edema, Denies dyspnea, Denies orthopnea and Denies paroxysmal nocturnal dyspnea Resp Denies cough, Denies hemoptysis, Denies excessive phlegm production, Denies dyspnea, Denies snoring and Denies wheezing GI Denies abdominal pain and Denies heartburn Musc Denies myalgias, Denies arthralgias and Denies joint swelling Skin/Breast Denies rash Neuro Denies memory loss and Denies seizure-like activity Psych Denies abnormal sleep pattern, Denies anxiety and Denies memory loss Endo Denies excessive sweating, Denies fatigue and Denies heat intolerance Jacob/Lymph Denies easy bruising Aller/Immun Denies itchy eyes, Denies seasonal rhinorrhea and Denies wheezing Physical Exam Vital Signs: Last Vital Signs Pulse 85 03/16/24 13:14 BP 150/84 H 03/16/24 13:14 Pulse Ox 96 03/16/24 13:14 Oxygen Delivery Method Room Air 03/16/24 13:14 BMI result Body Mass Index 33.4 Const General: no acute distress and alert Nutritional Appearance: not obese Orientation/consciousness: Other orientation findings ( oriented) HEENT Head: Yes atraumatic Eyes General: appearance normal, both eyes and all related structures Sclerae: sclerae normal EOM: EOMs intact bilaterally Neck Neck: Yes supple Lymphatic: no lymphadenopathy noted Resp Effort & Inspection: normal respiratory effort and no use of accessory muscles Auscultation: clear to auscultation bilaterally Cardio Rate: regular rate Rhythm: regular rhythm Heart sounds: no gallops, no murmurs and no rubs Skin General skin exam: other ( warm) Extrem General: No clubbing, No cyanosis and No edema Assessment & Plan Assessment & Plan (1) Obstructive sleep apnea: Code(s): G47.33 - Obstructive sleep apnea (adult) (pediatric) Category: Medical Plan: Results of sleep study reviewed, underlying moderate to severe sleep apnea. Will start on APAP of 6-16 cm of water. Coding Level of Care Code Est Pt Level 3 (39746) Diagnoses Obstructive sleep apnea G47.33
--- OUTSIDE RECORDS SUMMARY | 2024-03-16 17:03 | XMS_ITS ---
Author Organization Jaziel Johnston DO, FACP Address [address] [place], [place] [id number] Care Team Providers Care Food And Beverage Checker Name Role Phone Jaziel Johnston Primary Care Provider [phone] REASON FOR VISIT 6 week f/u Encounters Encounter Location Date Provider Diagnosis Jaziel Johnston DO, FACP [address] [place] [id number] 01/10/2024 Jaziel Johnston PLAN OF TREATMENT No Information
--- OUTSIDE RECORDS SUMMARY | 2024-03-16 17:03 | XMS_ITS ---
Author Organization Jaziel Johnston DO, [facility] Address [address] [place] [phone] Care Team Providers Care Grain Sampler Name Role Phone Jaziel Johnston Primary Care Provider [phone] REASON FOR VISIT Refills MEDICATIONS Medication SIG (Take, Route, Frequency, Duration) Notes Start Date End Date Status amLODIPine Besylate 5 MG 1 tablet Orally Once a day for 90 days 12/01/2023 Active Encounters Encounter Location Date Provider Diagnosis Jaziel Johnston DO, [address] [phone] 12/28/2023 Jaziel Johnston Primary hypertension I10 ASSESSMENTS Encounter Date Diagnosis Assessment Notes Treatment Notes Treatment Clinical Notes 12/28/2023 Primary hypertension (ICD-10 - I10) PLAN OF TREATMENT Medication Medication Name Sig Start Date Stop Date Notes amLODIPine Besylate 5 MG 1 tablet Orally Once a day for 90 days 12/01/2023
--- OUTSIDE RECORDS SUMMARY | 2024-03-16 17:04 | XMS_ITS ---
Author Organization Jaziel Johnston DO, FACP Address [address] [place], [place] [phone] Care Team Providers Care Manager Economic Name Role Phone Jaziel Johnston Primary Care Provider [phone] Encounters Encounter Location Date Provider Diagnosis Jaziel Johnston DO, FACP [address] [place] [phone] 01/12/2024 Jaziel Johnston PLAN OF TREATMENT No Information
== END 2024-03-16 13:37 | disposition home or self-care (01) ==
PROVIDERS: PCP Internal Medicine; Visit Provider Internal Medicine Pulmonary Disease
DX: G47.33 Obstructive sleep apnea (adult) (pediatric) (principal)
CPT/HCPCS: 99213

== ENCOUNTER → 2024-03-16 13:12 | Outpatient (BNVA) | payer OTHER, SELFPAY | PROVIDERS: PCP Internal Medicine; Visit Provider Internal Medicine Pulmonary Disease | DX: G47.33 Obstructive sleep apnea (adult) (pediatric) (principal) | CPT/HCPCS: 99212 ==

== ENCOUNTER 2024-05-10 14:01 | Outpatient (AMB) | payer OTHER, SELFPAY ==
--- NOTE | 2024-05-10 14:09 | A.OFFVIS_ITS ---
Vital Signs 05/10/24 14:11 Height 5 ft 6 in Weight 205 lb BMI 33.1 BP 154/86 H Blood Pressure Location Rt brachial Position Sitting Pulse 87 Pulse Source Doppler Pulse Oximetry (%) 96 Oxygen Delivery Method Room Air Intake Visit Reasons: Obstructive sleep apnea Allergies No Known Allergies Allergy (Verified 05/10/24 14:15) HPI HPI Obstructive sleep apnea: Details: 33-year-old gentleman with underlying history of resection of brain tumor as an infant, and again as a toddler now followed for underlying moderate to severe sleep apnea. He was started on APAP with improvement in his symptoms he still has difficulty adjusting to using CPAP every night. [facility] Medical History (Updated 11/08/23 @ 09:49 by Johan Man MD) HLD (hyperlipidemia) Gynecomastia Vitamin D deficiency Obesity (BMI 30-39.9) Hypopituitarism Non-toxic multinodular goiter Post-surgical hypothyroidism Seizure Hypogonadotropic hypogonadism Surgical History History of ventriculoperitoneal shunting Hx of brain surgery History of thyroidectomy, subtotal Family History Father No problems noted. Mother No problems noted. Social History Alcohol intake: current Alcohol intake frequency: holidays/special occasions only Patient Tobacco Use Status: Never used Tobacco Review of Systems Const Reports difficulty sleeping and Reports other (Nocturia) Physical Exam Vital Signs: Last Vital Signs Pulse 87 05/10/24 14:11 BP 154/86 H 05/10/24 14:11 Pulse Ox 96 05/10/24 14:11 Oxygen Delivery Method Room Air 05/10/24 14:11 BMI result Body Mass Index 33.1 Const General: no acute distress and alert Orientation/consciousness: Other orientation findings ( oriented) HEENT Head: Yes atraumatic Eyes General: appearance normal, both eyes and all related structures Sclerae: sclerae normal EOM: EOMs intact bilaterally Neck Neck: Yes supple Lymphatic: no lymphadenopathy noted Resp Effort & Inspection: normal respiratory effort and no use of accessory muscles Auscultation: clear to auscultation bilaterally Cardio Rate: regular rate Rhythm: regular rhythm Heart sounds: no gallops, no murmurs and no rubs Skin General skin exam: other ( warm) Extrem General: No clubbing, No cyanosis and No edema Assessment & Plan Assessment & Plan (1) Obstructive sleep apnea: Code(s): G47.33 - Obstructive sleep apnea (adult) (pediatric) Category: Medical Plan: Moderate to severe obstructive sleep apnea with improving symptom control on CPAP therapy, but with difficulty adjusting to sleeping with CPAP. Patient continues to work on being able to use CPAP every night. Coding Level of Care Code Est Pt Level 3 (92933) Diagnoses Obstructive sleep apnea G47.33
[2024-05-10 14:11] VITALS: BP 154/86; PULSE 87; O2SAT 96; BMI 33.1
== END 2024-05-10 14:38 | disposition home or self-care (01) ==
LOC: HO.HPS 14:02
PROVIDERS: PCP Internal Medicine; Visit Provider Internal Medicine Pulmonary Disease
DX: G47.33 Obstructive sleep apnea (adult) (pediatric) (principal)
CPT/HCPCS: 99213

== ENCOUNTER → 2024-05-10 14:01 | Outpatient (BNVA) | payer OTHER, SELFPAY | PROVIDERS: PCP Internal Medicine; Visit Provider Internal Medicine Pulmonary Disease | DX: G47.33 Obstructive sleep apnea (adult) (pediatric) (principal) | CPT/HCPCS: 99212 ==

== ENCOUNTER 2024-05-23 13:53 | Outpatient (AMB) | payer OTHER, SELFPAY ==
[2024-05-23 13:49] VITALS: BP 158/90; PULSE 78; RESP 16; TEMP 36.6; O2SAT 98; BMI 32.9
--- NOTE | 2024-05-23 13:49 | MHC.PC.OV ---
Vital Signs 05/23/24 13:49 Height 5 ft 6 in Weight 204 lb BMI 32.9 BP 158/90 H Respiration 16 Pulse 78 Pulse Source Pulse Oximeter Temp 97.9 F Temp Source Temporal Artery Scan Pulse Oximetry (%) 98 Oxygen Delivery Method Room Air Intake Visit Reasons: elevated blood pressure Stitch Bonder Machine Operator Helper Required: No Accompanied by: Mother Allergies No Known Allergies Allergy (Verified 05/23/24 13:49) Tobacco use date assessed: 05/23/24 Dental Screening Dental Screen Date: 05/23/24 Did you have a dental visit in the last 12 months?: No Did you have a dental problem in the last 6 months where you did not have access to dental care?: No Was dental information given to patient?: Patient has dentist [facility] Medical History (Updated 05/23/24 @ 14:38 by Kaveh Javier MD) Brain tumor Generalized anxiety disorder Essential hypertension CVA (cerebral vascular accident) Neuroblastoma HLD (hyperlipidemia) Gynecomastia Vitamin D deficiency Obesity (BMI 30-39.9) Hypopituitarism Non-toxic multinodular goiter Post-surgical hypothyroidism Seizure Hypogonadotropic hypogonadism Surgical History History of ventriculoperitoneal shunting Hx of brain surgery History of thyroidectomy, subtotal Family History (Updated 05/23/24 @ 14:11 by FIFI Orozco) Father Prostate cancer Mother BP (high blood pressure) Social History (Updated 05/23/24 @ 14:12 by FIFI Orozco) Housing: House Alcohol intake: current Alcohol intake frequency: holidays/special occasions only Patient Tobacco Use Status: Never used Tobacco service: No Current occupational status: employed Cognitive needs: Yes (brain injury ) Hearing needs: No Vision needs: No Questionnaire PHQ-9 Over the last 2 weeks, how often have you been bothered by any of the following problems? 1. Little interest or pleasure in doing things: not at all 2. Feeling down, depressed, or hopeless: several days 3. Trouble falling or staying asleep, or sleeping too much: not at all 4. Feeling tired or having little energy: nearly every day 5. Poor appetite or overeating: nearly every day 6. Feeling bad about yourself - or that you are a failure or have let yourself or your family down: nearly every day 7. Trouble concentrating on things, such as reading the newspaper or watching television: nearly every day 8. Moving or speaking so slowly that other people could have noticed. Or the opposite - being so fidgety or restless that you have been moving around a lot more than usual: several days 9. Thoughts that you would be better off or of hurting yourself in some way: not at all Total score: 14 Source: Developed by Drs. Jaziel Coronado, Rand Lloyd, Shukri Lucas and colleagues, with an educational ana from [employer]. Thrive Questionnaire Date Thrive assessed: 05/23/24 I am a: Patient What is your living situation today?: I have a steady place to live Within the past 12 months, did the food you bought not last and you didn't have the money to get more?: Never true Within the past 12 months, did you worry whether your food would run out before you got money to buy more?: Never true Do you have trouble paying for medicines?: No Do you have trouble getting transportation to medical appointments?: No Do you have trouble paying your heating and electricity bill?: No Do you have trouble taking care of your child, family member or friend?: No Do you have trouble with day-to-day activities such as bathing, preparing meals, shopping, managing finances, etc.?: No Are you currently unemployed and looking for a job?: No Are you interested in more education?: No Please select the resources that you would like help with: None THRIVE Score: 0 AUDIT C Alcohol Use Questionnaire (AUDIT-C) 1. How often do you have a drink containing alcohol?: Monthly or less 2. How many drinks containing alcohol do you have on a typical day when you are drinking?: 1 or 2 3. How often do you have six or more drinks on one occasion?: Never Total Score: 1 ANTIONETTE-7 AMB Questionnaire ANTIONETTE-7 Date ANTIONETTE - 7 assessed: 05/23/24 Feeling nervous, anxious, or on edge: 1 = Several days Not being able to stop or control worryin = Several days Worrying too much about different things: 1 = Several days Trouble relaxin = Not at all Being so restless that it is hard to sit still: 0 = Not at all Becoming easily annoyed or irritable: 1 = Several days Feeling afraid as if something awful might happen: 0 = Not at all Total ANTIONETTE-7 score (0-4 normal; 5-9 mild; 10-14 moderate; 15-21 severe): 4 Source: Developed by Drs. Jaziel Coronado, Rand Lloyd, Shukri Lucas and colleagues, with an educational ana from [employer]. Physical exam (Primary Care) Vital Signs: Last Vital Signs Temp 97.9 F 05/23/24 13:49 Pulse 78 05/23/24 13:49 Resp 16 05/23/24 13:49 BP 158/90 H 05/23/24 13:49 Pulse Ox 98 05/23/24 13:49 Oxygen Delivery Method Room Air 05/23/24 13:49 BMI result Body Mass Index 32.9 Tobacco/Smoking Status: Tobacco use Status Tobacco use date assessed 05/23/24 05/23/24 13:51 Patient Tobacco Use Status Never used Tobacco 05/23/24 14:12 PHQ-9: PHQ-9 Score PHQ-9: Total score 14 05/23/24 14:18 Thrive Assessment: Date of Thrive Assessment Date Thrive assessed 05/23/24 05/23/24 13:51 Coding Level of Care Code New Pt Level 4 (44421) Complex EM visit Add On G2211 Diagnoses Hypopituitarism E23.0 Hypogonadotropic hypogonadism E23.0 HLD (hyperlipidemia) E78.5 CVA (cerebral vascular accident) I63.9 Essential hypertension I10 Generalized anxiety disorder F41.1 Brain tumor D49.6 Obstructive sleep apnea G47.33 Neuroblastoma C74.90 Assessment & Plan Assessment & Plan (1) Hypopituitarism: Code(s): E23.0 - Hypopituitarism Category: Medical Plan: Patient sees Dr Mckenzie for testosterone replacement (2) Hypogonadotropic hypogonadism: Code(s): E23.0 - Hypopituitarism Category: Medical Plan: As above (3) HLD (hyperlipidemia): Code(s): E78.5 - Hyperlipidemia, unspecified Category: Medical Plan: LDL in range (4) CVA (cerebral vascular accident): Code(s): I63.9 - Cerebral infarction, unspecified Category: Medical (5) Essential hypertension: Code(s): I10 - Essential (primary) hypertension Category: Medical Plan: Lisinopril added to the regimen (6) Generalized anxiety disorder: Code(s): F41.1 - Generalized anxiety disorder Category: Medical Plan: Citalopram 5 mg a day added to the regimen. Community navigation contacted, to determine if patient is eligible for any services (7) Brain tumor: Code(s): D49.6 - Neoplasm of unspecified behavior of brain Category: Medical Plan: Patient had a neuroblatoma resected at age 2. Continues to follow up at the tumor clinic in [place]. (8) Obstructive sleep apnea: Code(s): G47.33 - Obstructive sleep apnea (adult) (pediatric) Category: Medical Plan: On CPAP (9) Neuroblastoma: Code(s): C74.90 - Malignant neoplasm of unspecified part of unspecified adrenal gland Category: Medical Plan History of Present Illness The patient is a 33-year-old male presenting for an annual checkup and concerns regarding anxiety. The patient reports longstanding anxiety symptoms which had been previously managed with medication, though no pharmacotherapy has been pursued for years. Over the past year, symptoms of anxiety and irritability have gradually increased, culminating in daily episodes of anger and emotional distress. These symptoms have significantly impacted his interpersonal relationships and emotional well-being. 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 The patient subsequently suffered a stroke, leading to left-sided weakness, attributed to prior oncologic treatments. A subsequent history of petit mal seizures has resolved, with no recurrence since discontinuing anticonvulsant medication. The patient's sleep disorder has improved with CPAP therapy, though he maintains elevated blood pressure even with amlodipine treatment. The patient lives with his primary caregiver, his mother, who supports him in daily activities and medication management. Social History - Resides with mother who assists with daily activities - Requires aid with personal hygiene and medication adherence - Does not drive; physical activities include limited walking and playing golf - Uncle to two nieces or nephews - Sibling relationships noted, with a brother and sister being triplets; both siblings are in good health Review of Systems - Neurological: Reports irritability and daily anger episodes. - Psychiatric: Reports anxiety, emotional lability, and feelings of sadness. - Sleep: Denies issues, indicates improved sleep quality with CPAP. Physical Exam General: Appearance normal, both eyes and all related structures Nutritional Appearance: Well nourished Orientation/consciousness: Patient oriented x3 Limitations: Walking long distances can be a challenge, unstable Head: Normal to inspection Neck: Normal visual inspection Chest: Normal palpation of entire chest wall Respiratory: Normal respiratory effort Neurology: Patient oriented x3, left-sided weakness due to stroke. Large surgical scar Results Plan Citalopram will be initiated to manage the patient's anxiety, with attention to onset of action and any potential side effects. Lisinopril is prescribed in conjunction with current amlodipine therapy to better control hypertension. Follow-up in one month is planned to adjust treatment based on efficacy and patient feedback. Community Navigation will be consulted for additional support services to help transition towards greater independence. Current management of sleep apnea with CPAP should continue without alteration. Patient was informed and verbally consented to the use of an ambient scribe for clinic note documentation during this visit. Discussion Notes I discussed with the patient and his caregiver the initiation of citalopram for anxiety management, emphasizing the expected time frame for onset of effect and potential transient side effects. For hypertension, I added lisinopril to augment existing treatment with amlodipine. We reviewed lifestyle implications and the necessity of adhering to the prescribed schedule. I addressed follow-up care, encouraging the patient to report any adverse reactions. I informed the caregiver about contacting Community Navigation for potential support services and discussed long-term goals for more independent living arrangements. Patient Instructions Medications: New citalopram 10 mg PO DAILY 30 tabs 1RF lisinopril 5 mg PO DAILY 30 tabs 1RF
== END 2024-05-23 14:38 | disposition home or self-care (01) ==
LOC: HO.HMCSH 13:53
PROVIDERS: Visit Provider Internal Medicine
DX: E23.0 Hypopituitarism (principal); E78.5 Hyperlipidemia, unspecified; I63.9 Cerebral infarction, unspecified; I10 Essential (primary) hypertension; F41.1 Generalized anxiety disorder; D49.6 Neoplasm of unspecified behavior of brain; G47.33 Obstructive sleep apnea (adult) (pediatric); C74.90 Malignant neoplasm of unspecified part of unspecified adrenal gland

== ENCOUNTER → 2024-05-23 13:53 | Outpatient (BNVA) | payer OTHER, SELFPAY | PROVIDERS: PCP Internal Medicine; Visit Provider Internal Medicine | DX: E23.0 Hypopituitarism (principal); E78.5 Hyperlipidemia, unspecified; I10 Essential (primary) hypertension; F41.1 Generalized anxiety disorder; D49.6 Neoplasm of unspecified behavior of brain; G47.33 Obstructive sleep apnea (adult) (pediatric); C74.90 Malignant neoplasm of unspecified part of unspecified adrenal gland; Z86.73 Personal history of transient ischemic attack (TIA), and cerebral infarction without residual deficits | CPT/HCPCS: 99202 ==

== ENCOUNTER → 2024-06-20 09:15 | Outpatient (BNVA) | payer OTHER, SELFPAY | PROVIDERS: PCP Internal Medicine; Visit Provider Internal Medicine | DX: I10 Essential (primary) hypertension (principal); F41.1 Generalized anxiety disorder; Z79.899 Other long term (current) drug therapy | CPT/HCPCS: 99212 ==

== ENCOUNTER → 2024-06-20 09:15 | Outpatient (AMB) | payer OTHER, SELFPAY ==
[2024-06-20 09:13] VITALS: BP 140/72; PULSE 76; RESP 14; TEMP 36.7; O2SAT 97; BMI 32.3
--- NOTE | 2024-06-20 09:13 | A.OFFPC_ITS ---
Vital Signs 06/20/24 09:13 Height 5 ft 6 in Weight 200 lb BMI 32.3 BP 140/72 H Respiration 14 Pulse 76 Pulse Source Pulse Oximeter Temp 98.1 F Temp Source Temporal Artery Scan Pulse Oximetry (%) 97 Oxygen Delivery Method Room Air Intake Visit Reasons: f/u HTN Parachute Line Tier Required: No Accompanied by: Parent Allergies No Known Allergies Allergy (Verified 06/20/24 09:13) Tobacco use date assessed: 05/23/24 Dental Screening Dental Screen Date: 05/23/24 [facility] Medical History Brain tumor Generalized anxiety disorder Essential hypertension CVA (cerebral vascular accident) Neuroblastoma HLD (hyperlipidemia) Gynecomastia Vitamin D deficiency Obesity (BMI 30-39.9) Hypopituitarism Non-toxic multinodular goiter Post-surgical hypothyroidism Seizure Hypogonadotropic hypogonadism Surgical History History of ventriculoperitoneal shunting Hx of brain surgery History of thyroidectomy, subtotal Family History Father Prostate cancer Mother BP (high blood pressure) Social History Housing: House Alcohol intake: current Alcohol intake frequency: holidays/special occasions only Patient Tobacco Use Status: Never used Tobacco service: No Current occupational status: employed Cognitive needs: Yes (brain injury ) Hearing needs: No Vision needs: No Questionnaire PHQ-9 Over the last 2 weeks, how often have you been bothered by any of the following problems? 1. Little interest or pleasure in doing things: not at all 2. Feeling down, depressed, or hopeless: several days 3. Trouble falling or staying asleep, or sleeping too much: not at all 4. Feeling tired or having little energy: nearly every day 5. Poor appetite or overeating: nearly every day 6. Feeling bad about yourself - or that you are a failure or have let yourself or your family down: nearly every day 7. Trouble concentrating on things, such as reading the newspaper or watching television: nearly every day 8. Moving or speaking so slowly that other people could have noticed. Or the opposite - being so fidgety or restless that you have been moving around a lot more than usual: several days 9. Thoughts that you would be better off or of hurting yourself in some way: not at all Total score: 14 Source: Developed by Drs. Jaziel Coronado, Rand Lloyd, Shukri Lucas and colleagues, with an educational ana from [facility]. Thrive Questionnaire Date Thrive assessed: 05/23/24 I am a: Patient What is your living situation today?: I have a steady place to live Within the past 12 months, did the food you bought not last and you didn't have the money to get more?: Never true Within the past 12 months, did you worry whether your food would run out before you got money to buy more?: Never true Do you have trouble paying for medicines?: No Do you have trouble getting transportation to medical appointments?: No Do you have trouble paying your heating and electricity bill?: No Do you have trouble taking care of your child, family member or friend?: No Do you have trouble with day-to-day activities such as bathing, preparing meals, shopping, managing finances, etc.?: No Are you currently unemployed and looking for a job?: No Are you interested in more education?: No Please select the resources that you would like help with: None THRIVE Score: 0 AUDIT C Alcohol Use Questionnaire (AUDIT-C) 1. How often do you have a drink containing alcohol?: Monthly or less 2. How many drinks containing alcohol do you have on a typical day when you are drinking?: 1 or 2 3. How often do you have six or more drinks on one occasion?: Never Total Score: 1 ANTIONETTE-7 AMB Questionnaire ANTIONETTE-7 Date ANTIONETTE - 7 assessed: 05/23/24 Feeling nervous, anxious, or on edge: 1 = Several days Not being able to stop or control worryin = Several days Worrying too much about different things: 1 = Several days Trouble relaxin = Not at all Being so restless that it is hard to sit still: 0 = Not at all Becoming easily annoyed or irritable: 1 = Several days Feeling afraid as if something awful might happen: 0 = Not at all Total ANTIONETTE-7 score (0-4 normal; 5-9 mild; 10-14 moderate; 15-21 severe): 4 Source: Developed by Drs. Jaziel Coronado, Rand Lloyd, Shukri Lucas and colleagues, with an educational ana from [facility]. Physical exam (Primary Care) Vital Signs: Last Vital Signs Temp 98.1 F 06/20/24 09:13 Pulse 76 06/20/24 09:13 Resp 14 06/20/24 09:13 BP 140/72 H 06/20/24 09:13 Pulse Ox 97 06/20/24 09:13 Oxygen Delivery Method Room Air 06/20/24 09:13 BMI result Body Mass Index 32.3 Tobacco/Smoking Status: Tobacco use Status Tobacco use date assessed 05/23/24 06/20/24 09:14 Patient Tobacco Use Status Never used Tobacco 06/20/24 09:14 PHQ-9: PHQ-9 Score PHQ-9: Total score 14 06/20/24 09:39 Thrive Assessment: Date of Thrive Assessment Date Thrive assessed 05/23/24 06/20/24 09:14 Coding Level of Care Code Est Pt Level 4 (45831) Complex EM visit Add On G2211 Diagnoses Essential hypertension I10 Generalized anxiety disorder F41.1 Assessment & Plan Assessment & Plan (1) Essential hypertension: Code(s): I10 - Essential (primary) hypertension Category: Medical Plan: Continue meds at same dosage (2) Generalized anxiety disorder: Code(s): F41.1 - Generalized anxiety disorder Category: Medical Plan: Continue meds at same dosage. Plan History of Present Illness The patient is a 33-year-old male presenting for medication management follow-up for essential hypertension and major depressive disorder. The patient was commenced on lisinopril 5 mg and citalopram one month prior to this visit. For the management of depression, the patient reports reduced irritability, increased energy, and improved sleep quality since starting citalopram. No adverse reactions were reported, and the importance of compliance with the medication schedule was emphasized. In terms of hypertension, although there is some improvement reported with the current lisinopril dosage, complete control of the blood pressure has not been achieved. The patient admitted to not having regularly monitored his blood pressure at home. He is also taking amlodipine. The plan to potentially increase lisinopril was considered but decided to maintain the current dosage for the time being, allowing for more consistent home blood pressure readings as a preemptive measure. Social History - Planning a vacation to [place] Review of Systems - Psychiatric: Reports feeling less irritable, increased energy, improved sleep. - Cardiovascular: Denies known blood pressure measurements at home since last visit. Physical Exam General: Cooperative and healthy appearing Nutritional Appearance: Well nourished Orientation/consciousness: Patient oriented x3 Limitations: No limitations Head: Normal to inspection General: Appearance normal, both eyes and all related structures Neck: Normal visual inspection Chest: Normal palpation of entire chest wall Respiratory: Cough present ormal respiratory effort Neurology: Patient oriented x3 Results Plan 1. Essential Hypertension - Maintain current regimen with lisinopril 5 mg and amlodipine. - Advise patient to track blood pressure twice weekly. - Promote consistent CPAP machine use for potential cardiovascular benefit. 2. Major Depressive Disorder - Maintain current citalopram dosing. - Evaluate effectiveness and consider dosage adjustment after one month if necessary. Discussion Notes During the visit, I explained the importance of adherence to the prescribed citalopram dosage to prevent withdrawal symptoms and maintain mood stability. We discussed the reasonable expectation of continued symptom improvement with current dosing but agreed to re-evaluate for possible increase next month if needed. For hypertension management, I recommended sustained usage of current antihypertensive regimen with lisinopril and amlodipine, highlighting the importance of home blood pressure monitoring to guide future adjustments. Use of the CPAP machine was encouraged for its benefits in supporting blood pressure regulation alongside medication. Follow-up was scheduled for one month to assess progress and make potential modifications to therapy if indicated. Patient Instructions - Take citalopram as prescribed without skipping doses to avoid withdrawal effects. - Check your blood pressure at home twice a week and note the readings. - Use your CPAP machine consistently to help with blood pressure management. - Continue current medication for both high blood pressure and depression. - Come back in one month for a follow-up to discuss your progress. Medications: New amlodipine 5 mg PO DAILY 90 tabs 1RF Refilled citalopram 10 mg PO DAILY 90 tabs 1RF
== END ==
LOC: HO.HMCSH 09:15
PROVIDERS: PCP Internal Medicine; Visit Provider Internal Medicine
DX: I10 Essential (primary) hypertension (principal); F41.1 Generalized anxiety disorder

== ENCOUNTER 2024-07-18 10:15 | Outpatient (AMB) | payer OTHER, SELFPAY ==
[2024-07-18 10:15] VITALS: BP 140/69; PULSE 92; RESP 16; TEMP 36.8; O2SAT 96; BMI 32.6
--- NOTE | 2024-07-18 10:15 | MHC.PC.OV ---
Vital Signs 07/18/24 10:15 Height 5 ft 6 in Weight 202 lb BMI 32.6 BP 140/69 H Respiration 16 Pulse 92 Pulse Source Pulse Oximeter Temp 98.2 F Temp Source Temporal Artery Scan Pulse Oximetry (%) 96 Oxygen Delivery Method Room Air Intake Visit Reasons: follow up Chicken Picker Required: No Accompanied by: Mother Allergies No Known Allergies Allergy (Verified 07/18/24 10:15) Tobacco use date assessed: 07/18/24 Dental Screening Dental Screen Date: 05/23/24 [facility] Medical History Brain tumor Generalized anxiety disorder Essential hypertension CVA (cerebral vascular accident) Neuroblastoma HLD (hyperlipidemia) Gynecomastia Vitamin D deficiency Obesity (BMI 30-39.9) Hypopituitarism Non-toxic multinodular goiter Post-surgical hypothyroidism Seizure Hypogonadotropic hypogonadism Surgical History History of ventriculoperitoneal shunting Hx of brain surgery History of thyroidectomy, subtotal Family History Father Prostate cancer Mother BP (high blood pressure) Social History Housing: House Alcohol intake: current Alcohol intake frequency: holidays/special occasions only Patient Tobacco Use Status: Never used Tobacco service: No Current occupational status: employed Cognitive needs: Yes (brain injury ) Hearing needs: No Vision needs: No Questionnaire PHQ-9 Over the last 2 weeks, how often have you been bothered by any of the following problems? 1. Little interest or pleasure in doing things: not at all 2. Feeling down, depressed, or hopeless: several days 3. Trouble falling or staying asleep, or sleeping too much: not at all 4. Feeling tired or having little energy: nearly every day 5. Poor appetite or overeating: nearly every day 6. Feeling bad about yourself - or that you are a failure or have let yourself or your family down: nearly every day 7. Trouble concentrating on things, such as reading the newspaper or watching television: nearly every day 8. Moving or speaking so slowly that other people could have noticed. Or the opposite - being so fidgety or restless that you have been moving around a lot more than usual: several days 9. Thoughts that you would be better off or of hurting yourself in some way: not at all Total score: 14 Source: Developed by Drs. Jaziel Coronado, Rand Lloyd, Shukri Lucas and colleagues, with an educational ana from [employer]. Thrive Questionnaire Date Thrive assessed: 05/23/24 I am a: Patient What is your living situation today?: I have a steady place to live Within the past 12 months, did the food you bought not last and you didn't have the money to get more?: Never true Within the past 12 months, did you worry whether your food would run out before you got money to buy more?: Never true Do you have trouble paying for medicines?: No Do you have trouble getting transportation to medical appointments?: No Do you have trouble paying your heating and electricity bill?: No Do you have trouble taking care of your child, family member or friend?: No Do you have trouble with day-to-day activities such as bathing, preparing meals, shopping, managing finances, etc.?: No Are you currently unemployed and looking for a job?: No Are you interested in more education?: No Please select the resources that you would like help with: None THRIVE Score: 0 AUDIT C Alcohol Use Questionnaire (AUDIT-C) 1. How often do you have a drink containing alcohol?: Monthly or less 2. How many drinks containing alcohol do you have on a typical day when you are drinking?: 1 or 2 3. How often do you have six or more drinks on one occasion?: Never Total Score: 1 ANTIONETTE-7 AMB Questionnaire ANTIONETTE-7 Date ANTIONETTE - 7 assessed: 05/23/24 Feeling nervous, anxious, or on edge: 1 = Several days Not being able to stop or control worryin = Several days Worrying too much about different things: 1 = Several days Trouble relaxin = Not at all Being so restless that it is hard to sit still: 0 = Not at all Becoming easily annoyed or irritable: 1 = Several days Feeling afraid as if something awful might happen: 0 = Not at all Total ANTIONETTE-7 score (0-4 normal; 5-9 mild; 10-14 moderate; 15-21 severe): 4 Source: Developed by Drs. Jaziel Coronado, Rand Lloyd, Shukri Lucas and colleagues, with an educational ana from [employer]. Physical exam (Primary Care) Vital Signs: Last Vital Signs Temp 98.2 F 07/18/24 10:15 Pulse 92 07/18/24 10:15 Resp 16 07/18/24 10:15 BP 140/69 H 07/18/24 10:15 Pulse Ox 96 07/18/24 10:15 Oxygen Delivery Method Room Air 07/18/24 10:15 BMI result Body Mass Index 32.6 Tobacco/Smoking Status: Tobacco use Status Tobacco use date assessed 07/18/24 07/18/24 10:24 Patient Tobacco Use Status Never used Tobacco 07/18/24 10:24 PHQ-9: PHQ-9 Score PHQ-9: Total score 14 07/18/24 10:24 Thrive Assessment: Date of Thrive Assessment Date Thrive assessed 05/23/24 07/18/24 10:24 Coding Level of Care Code Est Pt Level 4 (24481) Complex EM visit Add On G2211 Diagnoses Generalized anxiety disorder F41.1 Essential hypertension I10 Assessment & Plan Assessment & Plan (1) Generalized anxiety disorder: Code(s): F41.1 - Generalized anxiety disorder Category: Medical Plan: SSRI not helping much. Psyc consult requested (2) Essential hypertension: Code(s): I10 - Essential (primary) hypertension Category: Medical Plan: Increased lisinopril to 10 mg once a day. Continue the amlodipine. Plan History of Present Illness - The patient is a 33-year-old male presenting with management of Essential Hypertension. - Currently prescribed lisinopril and amlodipine; blood pressure recordings suggest suboptimal control. - Plans discussed to increase lisinopril dosage to 10 mg. - The patient is a 33-year-old male presenting with evaluation of Major Depressive Disorder. - Citalopram was initiated for symptoms of depression, but patient still reports symptoms such as irritability. - Referral to Outpatient Psychiatry discussed due to lack of complete symptom resolution. Social History - No specific social determinants of health discussed. Review of Systems - Cardiovascular: Reports taking blood pressure medication. - Psychiatric: Reports ongoing depressive symptoms despite medication. Physical Exam General: Cooperative and healthy appearing Nutritional Appearance: Well nourished Orientation/consciousness: Patient oriented x3 Limitations: No limitations Head: Normal to inspection General: Appearance normal, both eyes and all related structures Neck: Normal visual inspection Chest: Normal palpation of entire chest wall Respiratory: N ormal respiratory effort Neurology: Patient oriented x3, but still experiences depression and irritability. Results Plan 1. Essential Hypertension - Adjust lisinopril to 10 mg. - Continuing amlodipine. - Monitor blood pressure regularly. 2. Major Depressive Disorder - Maintain citalopram. - Referral to Psychiatry. - Possible future medication adjustments. Discussion Notes During the visit, we discussed the need to increase the lisinopril dosage to 10 mg due to suboptimal blood pressure control with the current regimen, while maintaining the amlodipine dosage. I advised the patient on monitoring his blood pressure regularly to assess the improvement. For his depression, we continued the citalopram but noted persistent depressive symptoms. I explained the benefits of a referral to Outpatient Psychiatry, who could provide a more comprehensive evaluation and adjust therapy as needed. The patient acknowledged the importance of these adjustments and agreed with the proposed management plan. Instructions for future follow-up and referral were provided. Patient Instructions - Increase lisinopril to 10 mg. - Continue taking amlodipine as directed. - Keep track of your blood pressure regularly. - Continue your current dose of citalopram for depression. - Follow up with the Outpatient Psychiatry as planned for further evaluation. - Reach out if symptoms worsen or if there are any concerns. Orders: Referrals Psychiatry Outpatient Consultation Service F41.1 - Generalized anxiety disorder Medications: New lisinopril 10 mg PO DAILY 90 tabs 1RF Discontinued lisinopril Discontinued Reason: Doctor's Order 5 mg PO DAILY 90 tabs 1RF
== END 2024-07-18 10:37 | disposition home or self-care (01) ==
LOC: HO.HMCSH 10:15
PROVIDERS: PCP Internal Medicine; Visit Provider Internal Medicine
DX: F41.1 Generalized anxiety disorder (principal); I10 Essential (primary) hypertension

== ENCOUNTER → 2024-07-18 10:15 | Outpatient (BNVA) | payer OTHER, SELFPAY | PROVIDERS: PCP Internal Medicine; Visit Provider Internal Medicine | DX: F41.1 Generalized anxiety disorder (principal); I11.0 Hypertensive heart disease with heart failure | CPT/HCPCS: 99212 ==

== ENCOUNTER 2024-08-22 10:01 | Outpatient (AMB) | payer OTHER, SELFPAY ==
[2024-08-22 10:12] VITALS: BP 128/68; PULSE 98; O2SAT 97; BMI 31.8
--- NOTE | 2024-08-22 10:12 | MHC.OFFVIS ---
Vital Signs 08/22/24 10:12 Height 5 ft 6 in Weight 197 lb 5.019 oz BMI 31.8 BP 128/68 Blood Pressure Location Rt brachial Position Sitting Pulse 98 Pulse Source Pulse Oximeter Pulse Oximetry (%) 97 Oxygen Delivery Method Room Air Intake Visit Reasons: Hypogandism Intake Note: Patient present today for Hypogonadism follow up. 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 He had a SPECIAL LIBRARY LIBRARIAN shunt placement for hydrocephalus and suffered a basal ganglia stroke resulting in left-sided weakness. He also was treated with Lupron until the age of 14 due to precocious puberty. Later in adulthood he developed hypogonadism. He had imaging of his brain 07/21/2021 at [facility] in [place], [place], but no mention was made of the pituitary. Currently using Xyosted subcutaneous testosterone 50 mg q 2 weeks. He was previously over-replaced on Xyosted 75 mg once a week. His SHBG levels are quite low, and his Total testosterone was the only parameter being followed. His Free testosterone levels were significantly elevated. He did develop elevated Estrogen levels due to increased aromatization of Testosterone. He was started on Armidex 1 mg PO daily. He has significant gynecomastia, which he states developed many years ago. He underwent bilateral mammograms, which did reveal a small mass within the left breast. He was referred to Dr. Madison who recommended monitoring with q6 months mammograms. His PCP is managing this. After his initial visit with me we decreased his dose of xyosted to his current dose of 50 mg once a week. He is somewhat shy with his Father present while discussing libido and erections. Sense of smell intact. Denies headache or visual changes. Denies galactorrhea. History of DVT or PE: Denies, and no symptoms of swelling or pain in the extrmities or SOB. PSA: 12/31/2021 0.39 H/H: 12/31/2021 15.7/47.2% 2) NTMNG and hypothyroidism: He has a non-toxic multinodular thyroid. He underwent FNA biopsy of a R lobe nodule, with cytology suspicious for follicular neoplasm. Affirma was benign. He opted for a R hemithyroidectomy, and underwent a R lobectomy with Dr. Eugene 10/04/2018 with benign pathology. Postoperatively he did develop hypothyroidism, and remains on levothyroxine 88 mcg PO daily. TSH is in the hypothyroid range, and he admits this is due to poor compliance. He has multiple subcentimeter nodules within the L lobe of the thyroid. He does have a history of radiation to the head as a child. Thyroid US: 04/02/2021 Right Thyroid Lobe: Removed. Left Thyroid Lobe: 2.8 x 1.2 x 1.4 cm, volume 2.4 mL. Previously 2.9 x 1.1 x 1.3 cm, volume 2.2 mL. Parenchyma: The gland echotexture is heterogeneous. Thyroid vascularity is normal. Isthmus: 0.3 cm in maximum AP dimension. Previously 0.4 cm. Estimated total number of nodules greater than or equal to 1 cm: 0. Oracle Database Architect nodules are described as follows: 1.? Location: Left mid. ?? ? Size: 0.57 x 0.37 x 0.46 cm, volume 0.05 mL. ?? ? Previously: Not seen previously. ?? ? Nodule characteristics: ?? ? Composition: Solid/almost completely solid (2). ?? ? Echogenicity: Hypoechoic (2). ?? ? Shape: Not taller than wide (0). ?? ? Margins: Smooth (0). ?? ? Echogenic Foci: None (0). ?? ? ACR TI-RADS total points: 4 ?? ? ACR TI-RADS category: 4 ? Significant change in size (>/= 20% in 2 dimensions and minimal increase of 2 mm or 50% or greater increase in volume): None ?? ? Change in features: Not applicable ?? ? Change in ACR TI-RADS risk category: Not applicable 2.? Location: Left mid. ?? ? Size: 0.61 x 0.45 x 0.65 cm, volume 0.09 mL. ?? ? Previously: 0.59 x 0.58 x 0.51 cm, volume 0.09 mL. ?? ? Nodule characteristics: ?? ? Composition: Solid/almost completely solid (2). ?? ? Echogenicity: Hypoechoic (2). ?? ? Shape: Not taller than wide (0). ?? ? Margins: Smooth (0). ?? ? Echogenic Foci: None (0). ? ACR TI-RADS total points: 4 ?? ? ACR TI-RADS category: 4 ? Significant change in size (>/= 20% in 2 dimensions and minimal increase of 2 mm or 50% or greater increase in volume): None ?? ? Change in features: Not applicable ?? ? Change in ACR TI-RADS risk category: Not applicable 3.? Location: Left lower pole. ?? ? Size: 0.46 x 0.28 x 0.52 cm, volume 0.04 mL. ?? ? Previously: Not seen previously. ?? ? Nodule characteristics: ?? ? Composition: Solid/almost completely solid (2). ?? ? Echogenicity: Hypoechoic (2). ?? ? Shape: Not taller than wide (0). ?? ? Margins: Smooth (0). ?? ? Echogenic Foci: None (0).? ACR TI-RADS total points: 4 ?? ? ACR TI-RADS category: 4 ? Significant change in size (>/= 20% in 2 dimensions and minimal increase of 2 mm or 50% or greater increase in volume): None ?? ? Change in features: Not applicable ?? ? Change in ACR TI-RADS risk category: Not applicable NODES: No lymphadenopathy is seen in the tissue surrounding the thyroid gland. Labs: Laboratory Tests 07/07/21 12/31/21 12/31/21 07:40 06:11 06:11 Hgb 15.7 Hct 47.2 Sodium 138 Potassium 4.3 Creatinine 0.88 Estimated GFR > 60 Osmolality Triglycerides 168 Cholesterol 200 LDL Cholesterol Direct LDL Cholesterol, Calc 135 HDL Cholesterol 32 Prostate Specific Ag 0.39 25-OH Vitamin D Total 47.8 TSH 6.46 H Free T4 0.76 Total T3 Prolactin Sex Hormone Bind Glob Random Cortisol ACTH 32 12/31/21 12/31/21 12/31/21 06:11 06:11 06:11 Hgb Hct Sodium Potassium Creatinine Estimated GFR Osmolality 295 Triglycerides Cholesterol LDL Cholesterol Direct 144 H LDL Cholesterol, Calc HDL Cholesterol Prostate Specific Ag 25-OH Vitamin D Total TSH Free T4 Total T3 109 Prolactin 8.4 Sex Hormone Bind Glob 15 Random Cortisol 20.9 ACTH He is currently on Xyosted 50 mg Q 5 days Good libido . No problems with errection . Sleep study scheduled at end of mo. The patient is a 33-year-old male presenting for management of hypogonadism and issues related to insurance coverage for testosterone therapy. The patient has been using Xyosted , a prefilled testosterone injection, which has been effective in managing his symptoms. However, his insurance company, [employer], has denied coverage for this medication, citing a lack of documented poor response to generic alternatives. The patient has cognitive and physical impairments that make it difficult for him to administer the generic injectable forms of testosterone, which require drawing up and intramuscular injection. He has previously responded well to Xyosted with improvements in energy and mood noted. The patient also has a history of sleep apnea, which is being managed with CPAP therapy. He reports improvements in energy levels and overall well-being since starting CPAP therapy. [facility] Medical History Brain tumor Generalized anxiety disorder Essential hypertension CVA (cerebral vascular accident) Neuroblastoma HLD (hyperlipidemia) Gynecomastia Vitamin D deficiency Obesity (BMI 30-39.9) Hypopituitarism Non-toxic multinodular goiter Post-surgical hypothyroidism Seizure Hypogonadotropic hypogonadism Surgical History History of ventriculoperitoneal shunting Hx of brain surgery History of thyroidectomy, subtotal Family History Father Prostate cancer Mother BP (high blood pressure) Social History Housing: House Alcohol intake: current Alcohol intake frequency: holidays/special occasions only Patient Tobacco Use Status: Never used Tobacco service: No Current occupational status: employed Cognitive needs: Yes (brain injury ) Hearing needs: No Vision needs: No Physical Exam Vital Signs: Last Vital Signs Pulse 98 08/22/24 10:12 BP 128/68 08/22/24 10:12 Pulse Ox 97 08/22/24 10:12 Oxygen Delivery Method Room Air 08/22/24 10:12 BMI result Body Mass Index 31.8 Assessment & Plan Assessment & Plan (1) Hypogonadotropic hypogonadism: Code(s): E23.0 - Hypopituitarism Category: Medical Plan: Is a 32-year-old white male with a history of? 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 Currently on intramuscular Xyosted 50 mg q.5 days . Plan is to check peak and trough testosterone and adjust testosterone accordingly. May need to convert to generic testosterone as Xyosted denied by insurance company but would prefer using the Xyosted considering patient's ability to self inject and inability to do so with generic testosterone because of his cognitive physical disability 1. Hypogonadism The patient is using Xyosted which has been effective, but insurance coverage is an issue. An appeal will be filed to secure coverage, highlighting the patient's positive response and difficulties with alternatives. 2. Sleep Apnea The patient is using CPAP therapy with noted improvements in energy and well-being. Continued adherence is advised. The patient had an opportunity to ask questions regarding treatment plan. The patient expressed understanding and agreement with the above treatment plan. T Patient was informed and verbally consented to the use of an ambient scribe for clinic note documentation during this visit. Coding Level of Care Code Est Pt Level 3 (40057) Diagnoses Hypogonadotropic hypogonadism E23.0
== END 2024-08-22 10:42 | disposition home or self-care (01) ==
LOC: HO.ENCR 10:03
PROVIDERS: PCP Internal Medicine; Visit Provider Internal Medicine Endocrinology, Diabetes & Metabolism
DX: E23.0 Hypopituitarism (principal)
CPT/HCPCS: 99213

== ENCOUNTER → 2024-08-22 10:01 | Outpatient (BNVA) | payer OTHER, SELFPAY | PROVIDERS: PCP Internal Medicine; Visit Provider Internal Medicine Endocrinology, Diabetes & Metabolism | DX: E23.0 Hypopituitarism (principal) | CPT/HCPCS: 99212 ==

== ENCOUNTER 2024-09-06 13:56 | Outpatient (AMB) | payer OTHER, SELFPAY ==
--- OUTSIDE RECORDS SUMMARY | 2024-09-06 14:40 | XMS_ITS | Clinical Summary ---
Author Organization [facility] Address [address] [place] [address] Phone Care Team Providers Care Policy Specialist Name Role Phone Jaziel Johnston Primary Care Provider [phone] Jaziel Johnston Unavailable [phone] Jaziel Johnston Unavailable [phone] Jaziel Johnston Unavailable [phone] Jaziel Johnston Unavailable [phone] Sarbjit Crawford MD Unavailable [phone] Roxana Rose CNP Unavailable [phone] Medications anastrozole (Arimidex) 1 mg chemo tablet Dose: 1 mg, Dose Amount: 1 tab, PO, daily, Entered: 02/18/20 14:34:00 EST 02/18/2020 Active aspirin 81 mg chewable tablet Dose: 81 mg, Dose Amount: 1 tab, PO, daily, Entered: 02/18/20 14:34:00 EST 02/18/2020 Active levothyroxine (Synthroid, Levoxyl) 75 mcg tablet Dose: 75 mcg, Dose Amount: 1 tab, PO, daily, Dispense Quantity: 30 tab, Refills: 11, Entered: 02/18/20 14:34:00 EST 02/18/2020 Active midazolam (Nayzilam) 5 mg/spray (0.1 mL) spray,non-aeros ol Dose: 10 mg, Nasal, 1time, Special Instructions: 5 mg (one spray) in each nostril nostril for seizure longer than 5 minutes, Dispense Quantity: 2 EA, Refills: 0, Entered: 02/18/20 14:36:00 [id number] 02/18/2020 Active testosterone (Testopel) implant Dose: 75 mg, Subcutaneous, [id number], Entered: 02/18/20 14:34:00 EST 02/18/2020 Active Encounters Date Type Department Care Team Description 06/26/2024 Orders Only [facility] Neuro Oncology, [facility] [address] [phone] Sarbjit Crawford MD from Last 3 Months Social History Tobacco Use Types Packs/Day Years Used Date Smoking Tobacco: Never Assessed Sex and Gender Information Value Date Recorded Sex Assigned at Not on file Legal Sex Male 2:07 PM EDT Gender Identity Not on file Sexual Orientation Not on file Last Filed Vital Signs Vital Sign Reading Time Taken Comments Blood Pressure 116/80 07/17/2021 12:33 PM EDT Pulse 84 07/17/2021 12:33 PM EDT Temperature - - Respiratory Rate 16 07/17/2021 12:33 PM EDT Oxygen Saturation 99% 07/17/2021 12:33 PM EDT Inhaled Oxygen Concentration - - Weight 93.3 kg (205 lb 11 oz) 07/17/2021 12:33 P M EDT Height 165.4 cm (5' 5.12 ) 07/17/2021 12:33 PM E DT Body Mass Index 34.1 07/17/2021 12:33 PM EDT Plan of Treatment Upcoming Encounters Date Type Department Care Team (Late st Contact Info) Description 10/12/2024 2:00 PM EDT Telemedicine [facility] Neuro Oncology, [facility] Cancer and Blood Disorders [address] [id number] Hui Gomez MD [address] [place] [id number] Health Maintenance Due Date Last Done Comments HIV Screening 1991 MMR Vaccines (1 of 1 - Standard series) 10/23/1992 DTaP/Tdap/Td Vaccines (1 - Tdap) 10/23/1998 Varicella Vaccines (1 of 2 - 13+ 2-dose series) 10/23/2004 Hepatitis C Screening 10/23/2009 Hepatitis B Vaccines (1 of 3 - 19+ 3-dose series) 10/23/2010 HPV Vaccines (1 - 3-dose SCD M series) 10/23/2018 COVID-19 Vaccine (3 - Pfizer risk series) 07/29/2020 07/01/2020, 06/10/2020 Influenza Vaccine (#1) 2024 , 11/11/2018 HIB Vaccines Aged Out No longer eligi ble based on patient's age to complete this topic Hepatitis A Vaccines Aged Out No long er eligible based on patient's age to complete this topic IPV Vaccines Aged Out No longer eligi ble based on patient's age to complete this topic Meningococcal B Vaccine Aged Out No l onger eligible based on patient's age to complete this topic Meningococcal Vaccine Aged Out No ronnie husam eligible based on patient's age to complete this topic Pneumococcal Vaccine: Pediatrics (0 to 5 Years) and At-Risk Patients (6 to 49 Years) Aged Out No longer eligible b ased on patient's age to complete this topic Rotavirus Vaccines Aged Out No longer eligible based on patient's age to complete this topic Insurance [employer] Care Teams Policy Specialist Relationship Specialty Start Date End Date Jaziel Johnston [address] [place] [address] PCP - General 06/22/23 Jaziel Johnston [address] [place] [address] PCP - Insurance PCP 01/24/20 Jaziel Johnston [address] [place] [address] PCP - DFCIPCP 07/17/21 Jaziel Johnston [address] [place] [address] PCP - Clinical PCP 04/23/11 Jaziel Johnston [address] [place] [address] PCP - Insurance Identified PCP 10/17/23 Sarbjit Crawford MD [address] [place] [address] Oncologist Pediatric Hematology and Oncology 11/10/23 Roxana Rose TOOLMAKER [address] [facility] [address] [place] [id number] Nurse Practitioner Pediatric Hematology and Oncology 11/10/23
--- OUTSIDE RECORDS SUMMARY | 2024-09-06 14:40 | XMS_ITS | Encounter Summary ---
Author Organization [facility] Address [address] [place] [address] Phone Care Team Providers Care Hoop Bender Tank Name Role Phone Jaziel Johnston DO Primary Care Provider Jaziel Johnston DO Unavailable Osman Alvarez MD, PhD Unavailable Verito Sonja Hay RN Unavailable [phone] Roxana Rose GRADES 1 THRU 6 HOME TEACHER Unavailable Danica Vences DO Unavailable [phone] Encounter Details Date Type Department Care Team (Late st Contact Info) Description 05/13/2021 Procedure Pass [facility] Periop [address] [place] [address] Social History Tobacco Use Types Packs/Day Years Used Date Smoking Tobacco: Never Assessed Sex and Gender Information Value Date Recorded Sex Assigned at Male 07/15/2021 12:55 PM EDT Legal Sex Male 7:49 PM EST Gender Identity Male 07/15/2021 12:55 PM EDT Sexual Orientation Choose not to disclose 2021 12:55 PM EDT documented as of this encounter Plan of Treatment Upcoming Encounters Date Type Department Care Team (Late st Contact Info) Description 06/26/2024 Procedure Pass [facility] [address] [place] [address] 09/29/2024 11:00 AM EDT Pre-Admission Testing [facility] [address] [facility] 2nd [place] [address] Alonzo, MD Alonzo 10/06/2024 11:30 AM EDT Appointment [facility] [address] [place] [address] Sarbjit Crawford MD [address] [place] [address] [email or web address] 10/12/2024 2:00 PM EDT Telemedicine Pediatric Neuro Oncology, [facility] [address] [address] [place] [address] Hui Gomez MD, MPH [address] [place] [address] [email or web address] documented as of this encounter Visit Diagnoses Not on filedocumented in this encounter Care Teams Hoop Bender Tank Relationship Specialty Start Date End Date Jaziel Johnston DO [address] [place] [id number] PCP - General Internal Medicine 09/20/20 Jaziel Johnston DO [address] [place] [id number] 09/20/20 Osman Alvarez MD, PhD [address] [place] [phone] Primary Oncologist Pediatrics 09/19/14 3 Sonja Marquez RN [address] [place] [id number] [email or web address] Registered Nurse 09/19/14 Roxana Rose GRADES 1 THRU 6 HOME TEACHER [address] [place] [phone] [email or web address] Nurse Practitioner 09/19/14 Danica Vences DO [address] [place] [address] Custodial Operations Manager Internal Medicine 07/21/21 documented as of this encounter Additional Source Comments The information contained in this document represents components of the legal health record. It is not the complete legal health record.[facility]
--- NOTE | 2024-09-16 17:11 | A.OFFPSYCH_ITS ---
Intake Intake Visit Reasons: consultation Animal Cruelty Investigation Supervisor Required: No Allergies No Known Allergies Allergy (Verified 08/22/24 10:13) Medication List - Last Reconciled 09/16/24 by Katlin Aguirre APRN amlodipine 5 mg PO DAILY aspirin (Adult Aspirin Regimen) 81 mg PO DAILY citalopram 15 mg (1.5 x 10 mg) PO DAILY ibuprofen 800 mg PO TID lamotrigine (Lamictal) 25 mg PO DAILY 14 days levothyroxine 75 mcg PO DAILY lisinopril 10 mg PO DAILY Xyosted (testosterone enanthate) 50 mg (0.5 mL) subcut Q5D NS HPI- Psychiatric Chief Complaint: consultation HPI Narrative: 09/06/24: PHQ-9 17 ANTIONETTE-7 15 33 yo male, hx of anxiety, malignant brain neoplasm 1992 with surgery, CSI, chemotherapy, CVA, L kidney cyst, HTN, SAUL, HLD, Hypopituitarism, hypothyroidism, hypogonadotropic hypogonadism presents with sx of anxiety, depression, anergy, decrease in concentration, irritability, and decrease in self esteem. Pt reports, I want to be happy again and I want to have more energy . He is accompanied by his mother who is a great support. 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 At age 3 he completed radiation and chemotherapy and has a polymer plate. He is [facility], Dr. Mckenzie, retention manager for pituitary issues post radiation, Dr. Johnston who retired and with a new PCP, Dr. Amin. Left sided hemiparesis has caused unstable gait, STM loss, disinhibition, perseverative sx. Pt reports frustration- cites work as an example- if I cannot find something, I shut down. If someone needs a specific dish and I have dishes piling up I walk away if I cannot find it. 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 Also describes sadness- recent loss of grandfather, worry about things he cannot control, nervousness, feeling on edge, fears when parents go to dinner or go away (they have not gone away, just to dinner on occasion) that someone will break in and the dogs will not be able to help. Siblings, Ronald and Shiro are a support, however pt struggles more with Ronald who is about to have his first child. Pt reports he will last out verbally, may throw an object, and is very sad and apologetic after this occurs. He hates being on disability and wants to learn to drive. Past Psychiatric History: IP: Denies OP: Hx of seeing Tony at [facility] who retired- gave great interventions and exercises to help manage mood and neurological based interventions (resetting, tapping) that at times helps Has ISP team Trials: Trileptal for seizure-did help with mood, Citalopram Subjective Subjective Subjective Medication Compliance: Yes Side effects from medications: No Review of Systems Medical Review of Systems: unchanged Review of Systems Review of Systems Denies Mental Status Exam Mental Status Exam Patient Appearance: Appropriate Patient Orientation: Person, Place, Time and Situation Level of Consciousness: Alert Patient Behavior: Talkative Mood Description: Apprehensive Affect Description: Apprehensive Patient Cognition Impaired: No Ability to Follow Directions: Good Speech Pattern: Spontaneous Speech Memory Description: Intact Hallucinations: None Delusions: Not Present Thought Process: Goal Oriented Thought Content: positive for Goal Oriented and positive for Suicidal Ideation (denies) Depressive Symptoms: Thoughts of /Suicide (denies) Judgement: Good Assessment and Plan Assessment & Plan (1) Generalized anxiety disorder: Status: Acute Code(s): F41.1 - Generalized anxiety disorder Plan 33 yo male, significant medical history with anxiety and mood dysregulation. Tolerating citalopram. Discussed re-starting a low dose mood stabilizer to add to the antidepressant to assist with mood stabilization. Plan: Increase citalopram to 15 mg daily Lamictal 25 mg daily for 14 days, then increase to 50 mg daily. Medications: New lamotrigine (Lamictal) 25 mg PO DAILY 14 tabs 0RF 14 days Changed From citalopram 10 mg PO DAILY 90 tabs 1RF To citalopram 15 mg (1.5 x 10 mg) PO DAILY 45 tabs 0RF Counseling and coordination of Care Medication management counseling: Effectiveness, Side effects, Dosing range, Duration, Drug interaction and Adherence Details: I spent [] minutes reviewing the record, seeing the patient and documenting in the medical record. Counseling provided to the patient/caregiver as outlined below. Addressed patient/caregiver concerns regarding current medication regime including effective adherence. Addressed patient/caregiver concerns regarding diagnosis and prognosis including accuracy of diagnosis, prognosis over time, impact of diagnosis. Addressed patient/caregiver concerns regarding impact of recent stressors. [facility] Medical History Brain tumor Generalized anxiety disorder Essential hypertension CVA (cerebral vascular accident) Neuroblastoma HLD (hyperlipidemia) Gynecomastia Vitamin D deficiency Obesity (BMI 30-39.9) Hypopituitarism Non-toxic multinodular goiter Post-surgical hypothyroidism Seizure Hypogonadotropic hypogonadism Surgical History History of ventriculoperitoneal shunting Hx of brain surgery History of thyroidectomy, subtotal Family History Father Prostate cancer Mother BP (high blood pressure) Social History Housing: House Alcohol intake: current Alcohol intake frequency: holidays/special occasions only Patient Tobacco Use Status: Never used Tobacco service: No Current occupational status: employed Cognitive needs: Yes (brain injury ) Hearing needs: No Vision needs: No Social History: Born in [place], a triplet. Very supportive family. My brother is the best competitive skiier . Bullied in school-a kid oz a swastika with a sharpie on his wrist. 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 No substance use, non smoker Trauma History: Medical trauma Bullied in school Coding Level of Care Code Psych Diag Eval w/Med (40367) Diagnoses Generalized anxiety disorder F41.1
== END 2024-09-06 17:57 | disposition home or self-care (01) ==
LOC: HO.HOP 13:56
PROVIDERS: PCP Internal Medicine; Visit Provider Clinical Nurse Specialist Psychiatric/Mental Health, Adult
DX: F41.1 Generalized anxiety disorder (principal)
CPT/HCPCS: 90792

== ENCOUNTER → 2024-09-06 13:56 | Outpatient (BNVA) | payer OTHER, SELFPAY | PROVIDERS: PCP Internal Medicine; Visit Provider Clinical Nurse Specialist Psychiatric/Mental Health, Adult | DX: F41.1 Generalized anxiety disorder (principal) | CPT/HCPCS: 90792 ==

== ENCOUNTER 2024-10-18 14:03 | Outpatient (AMB) | payer OTHER, SELFPAY ==
--- NOTE | 2024-10-18 14:32 | MHC.OFFVISPS ---
Intake Intake Visit Reasons: f/u consultation Intake Note: 10/18/24 PHQ-9 8 ANTIONETTE-7 15 Medical Insurance Clerk Required: No Allergies No Known Allergies Allergy (Verified 08/22/24 10:13) Medication List - Last Reconciled 10/18/24 by Katlin Aguirre APRN amlodipine 5 mg PO DAILY aspirin (Adult Aspirin Regimen) 81 mg PO DAILY citalopram 15 mg (1.5 x 10 mg) PO DAILY ibuprofen 800 mg PO TID lamotrigine (Lamictal) 25 mg PO DAILY 30 days levothyroxine 75 mcg PO DAILY lisinopril 10 mg PO DAILY Xyosted (testosterone enanthate) 50 mg (0.5 mL) subcut Q5D NS HPI- Psychiatric Chief Complaint: f/u consultation HPI Narrative: Pt to appt with his mother. Reports lamictal has been helpful, without SE. Some anxiety and irritability persist, along with worry-discussed worry about his family. Looking forward to welcoming a new neice[facility]. Active with work and socially, currently golfing regularly. Compliant with his CPAP which he finds helpful as well. Past Psychiatric History: IP: Denies OP: Hx of seeing [facility] at [facility] retired- gave great interventions and exercises to help manage mood and neurological based interventions (resetting, tapping) that at times helps Has ISP team Trials: Trileptal for seizure-did help with mood, Citalopram Subjective Subjective Subjective Medication Compliance: Yes Side effects from medications: No Review of Systems Medical Review of Systems: unchanged Review of Systems Review of Systems Reports feeling well Mental Status Exam Mental Status Exam Patient Appearance: Appropriate Patient Orientation: Person, Place, Time and Situation Level of Consciousness: Alert Patient Behavior: Talkative and Good Eye Contact Mood Description: Apprehensive Affect Description: Appropriate Patient Cognition Impaired: No Ability to Follow Directions: Good Speech Pattern: Appropriate Memory Description: Intact Hallucinations: None Delusions: Not Present Thought Process: Intact Thought Content: positive for Intact Judgement: Good Assessment and Plan Assessment & Plan (1) Generalized anxiety disorder: Status: Acute Code(s): F41.1 - Generalized anxiety disorder Plan Continue Lamictal 25 mg daily Increase Citalopram to 20 mg daily Pt would like a referral for psychotherapy- hx [facility] which he reports he had a productive relationship with. Medications: New citalopram 20 mg PO DAILY 30 tabs 0RF Refilled lamotrigine (Lamictal) 25 mg PO DAILY 30 tabs 0RF 30 days Discontinued citalopram Discontinued Reason: Doctor's Order 15 mg (1.5 x 10 mg) PO DAILY 45 tabs 0RF Counseling and coordination of Care Details: I spent [] minutes reviewing the record, seeing the patient and documenting in the medical record. Counseling provided to the patient/caregiver as outlined below. Addressed patient/caregiver concerns regarding current medication regime including effective adherence. Addressed patient/caregiver concerns regarding diagnosis and prognosis including accuracy of diagnosis, prognosis over time, impact of diagnosis. Addressed patient/caregiver concerns regarding impact of recent stressors. [facility] Medical History Brain tumor Generalized anxiety disorder Essential hypertension CVA (cerebral vascular accident) Neuroblastoma HLD (hyperlipidemia) Gynecomastia Vitamin D deficiency Obesity (BMI 30-39.9) Hypopituitarism Non-toxic multinodular goiter Post-surgical hypothyroidism Seizure Hypogonadotropic hypogonadism Surgical History History of ventriculoperitoneal shunting Hx of brain surgery History of thyroidectomy, subtotal Family History Father Prostate cancer Mother BP (high blood pressure) Social History Housing: House Alcohol intake: current Alcohol intake frequency: holidays/special occasions only Patient Tobacco Use Status: Never used Tobacco service: No Current occupational status: employed Cognitive needs: Yes (brain injury ) Hearing needs: No Vision needs: No Social History: Born in [place], a triplet. Very supportive family. My brother is the best competitive skiier . Bullied in school-a kid oz a swastika with a sharpie on his wrist. 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 No substance use, non smoker Trauma History: Medical trauma Bullied in school Coding Level of Care Code Est Pt Level 3 (19455) Diagnoses Generalized anxiety disorder F41.1
--- OUTSIDE RECORDS SUMMARY | 2024-10-18 16:19 | XMS_ITS | Encounter Summary ---
Author Organization [facility] Address [facility] [address] [place] [address] Phone Care Team Providers Care Concrete Stone Fabricator Name Role Phone Jaziel Johnston DO Primary Care Provider Jaziel Johnston DO Unavailable [phone] Sonja Marquez RN Unavailable [phone] Roxana Rose CRUSHER PLANT OPERATOR Unavailable Danica Vences DO Unavailable [phone] Encounter Details Date Type Department Care Team (Late st Contact Info) Description 06/26/2024 Procedure Pass [facility] Rad[facility] [address] [place] [address] Social History Tobacco Use Types Packs/Day Years Used Date Smoking Tobacco: Never Assessed Education Answer Date Recorded Are you interested in more education? Not on maribeth e 06/12/2022 Are you concerned about learning? Not on file 06/12/2022 No 06/12/2022 No 06/12/2022 Digital Access Answer Date Recorded No 07/13/2022 No 07/13/2022 Reliable internet access at home? Not on file 07/13/2022 Device with a working camera? Not on file Sex and Gender Information Value Date Recorded Sex Assigned at Male 07/15/2021 12:55 PM EDT Legal Sex Male 7:49 PM EST Gender Identity Male 07/15/2021 12:55 PM EDT Sexual Orientation Choose not to disclose 2021 12:55 PM EDT documented as of this encounter Plan of Treatment Not on file documented as of this encounter Visit Diagnoses Not on filedocumented in this encounter Care Teams Concrete Stone Fabricator Relationship Specialty Start Date End Date Jaziel Johnston DO [address] [place] [address] PCP - General Internal Medicine 09/20/20 Jaziel Johnston DO [address] [place] [address] 09/20/20 Sonja Marquez RN [address] [place] [address] [email or web address] Registered Nurse 09/19/14 Roxana Rose CNP [address] [place] [phone] [email or web address] Nurse Practitioner 09/19/14 Danica Vences DO [address] [place] [address] Glass Decorator Internal Medicine 07/21/21 documented as of this encounter Additional Source Comments The information contained in this document represents components of the legal health record. It is not the complete legal health record.[facility]
--- OUTSIDE RECORDS SUMMARY | 2024-10-18 16:19 | XMS_ITS | Encounter Summary ---
Author Organization [facility] Address [address] [place] [address] Phone Care Team Providers Care Wood Repatcher Name Role Phone Jaziel Johnston DO Primary Care Provider [phone] Jaziel Johnston DO Unavailable Sonja Marquez RN Unavailable [phone] Roxana Rose MAIL SORTER Unavailable [phone] Danica Vences DO Unavailable [phone] Reason for Referral * MRI/CAT Scan - New Request Specialty Diagnoses / Procedures Referred By Sadia lorenzo Referred To Contact Radiology Diagnoses Neuroblastoma History of radiation therapy Procedures MRI Angio Neck Hui Gomez MD, MPH [address] [place] [address] Phone: tel: fax: mailto:[email or web address] Referral ID Status Reason Start Date Expiration Date V isits Requested Visits Authorized [id number] New Request 10/13/2024 1 1 * MRI/CAT Scan - New Request Specialty Diagnoses / Procedures Referred By Sadia lorenzo Referred To Contact Radiology Diagnoses Neuroblastoma History of radiation therapy Procedures MRI Angio Brain Hui Gomez MD, MPH [address] [place] [address] Phone: tel: fax: mailto:[email or web address] Referral ID Status Reason Start Date Expiration Date V isits Requested Visits Authorized [id number] New Request 10/13/2024 1 1 * MRI/CAT Scan - New Request Specialty Diagnoses / Procedures Referred By Contac t Referred To Contact Radiology Diagnoses Neuroblastoma History of radiation therapy Procedures MRI Brain Hui Gomez MD, MPH [address] [place] [address] Phone: tel: fax: mailto:[email or web address] Referral ID Status Reason Start Date Expiration Date V isits Requested Visits Authorized [id number] New Request 10/13/2024 1 1 Encounter Details Date Type Department Care Team (Late st Contact Info) Description 10/13/2024 Orders Only Pediatric Oncology, [facility] [address] [facility], 3rd [place] [address] Hui Gomez MD, MPH [address] [place] [address] [email or web address] Neuroblastoma (Primary Dx); History of radiation therapy Social History Tobacco Use Types Packs/Day Years [...] as of this encounter Plan of Treatment Scheduled Orders Name Type Priority Associated Diagnoses Orde r Schedule MRI Brain Imaging Routine Neuroblastoma History of radiation therapy Expected: 10/14/2027, Expires: 10/13/2028 MRI Angio Brain Imaging Routine Neuroblastoma History of radiation therapy Expected: 10/14/2027, Expires: 10/13/2028 MRI Angio Neck Imaging Routine Neuroblastoma History of radiation therapy Expected: 10/14/2027, Expires: 10/13/2028 documented as of this encounter Visit Diagnoses Diagnosis 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 History of radiation therapy Personal history of irradiation, presenting hazards to health documented in this encounter Care Teams Wood Repatcher Relationship Specialty Start Date End Date Jaziel Johnston DO [address] [place] [address] PCP - General Internal Medicine 09/20/20 Jaziel Johnston DO [address] [place] [address] 09/20/20 Sonja Marquez RN [address] [place] [address] [email or web address] Registered Nurse 09/19/14 Roxana Rose CNP [address] [place] [address] [phone] [email or web address] Nurse Practitioner 09/19/14 Danica Vences, [place] [address] Land Examiner Internal Medicine 07/21/21 documented as of this encounter Additional Source Comments The information contained in this document represents components of the legal health record. It is not the complete legal health record.[facility]
--- OUTSIDE RECORDS SUMMARY | 2024-10-18 16:19 | XMS_ITS | Encounter Summary ---
Author Organization [facility] Address [address] [place] [address] Phone Care Team Providers Care Operator Specialist Communications Name Role Phone Jaziel Johnston DO Primary Care Provider Jaziel Johnston DO Unavailable Osman Alvarez MD, PhD Unavailable Verito Sonja Hay RN Unavailable [phone] Roxana Rose CAMPAIGN MANAGEMENT SPECIALIST Unavailable [phone] Danica Vences DO Unavailable [phone] Encounter Details Date Type Department Care Team (Late st Contact Info) Description 05/13/2021 Procedure Pass [facility] Periop [address] [place] [address] Social History Tobacco Use Types Packs/Day Years [...] on filedocumented in this encounter Care Teams Operator Specialist Communications Relationship Specialty Start Date End Date Jaziel Johnston DO [address] [place] [address] PCP - General Internal Medicine 09/20/20 Jaziel Johnston DO [address] [place] [address] 09/20/20 Osman Alvarez MD, PhD [address] [place] [address] Primary Oncologist Pediatrics 09/19/14 3 Sonja Marquez, MEGHAN [address] [place] [address] [email or web address] Registered Nurse 09/19/14 Roxana Rose CNP [address] [place] [phone] [email or web address] Nurse Practitioner 09/19/14 Danica Vences DO [address] [place] [address] Senior Analyst Programmer Internal Medicine 07/21/21 documented as of this encounter Additional Source Comments The information contained in this document represents components of the legal health record. It is not the complete legal health record.[facility]
--- OUTSIDE RECORDS SUMMARY | 2024-10-18 16:20 | XMS_ITS | Clinical Summary ---
Author Organization [facility] Address [address] [place] [address] Phone Care Team Providers Care Cae Engineer Name Role Phone Jaziel Johnston DO Primary Care Provider Jaziel Johnston DO Unavailable Sonja Marquez RN Unavailable Roxana Rose MEDIA MARKETING MANAGER Unavailable [phone] Danica Vences DO Unavailable [phone] Allergies No known active allergies Medications levothyroxine (SYNTHROID, LEVOTHROID) 88 MCG tablet 07/05/2021 Active testosterone enanthate (XYOSTED) 50 mg/0.5 mL subcutaneous syringe 02/15/2014 Active aspirin 81 MG EC tablet Take 81 mg by mouth daily. Active cholecalciferol (VITAMIN D3) 25 MCG (1,000 unit) tablet Take 1,000 Units by mouth daily. Active amLODIPine (NORVASC) 5 MG tablet Take 5 mg by mouth daily. Active citalopram (CELEXA) 10 MG tablet Take 20 mg by mouth daily. Active lamoTRIgine (LAMICTAL) 25 MG TChD Take 25 mg by mouth 2 (two) times a day. Active lisinopril (PRINIVIL,ZESTRIL ) 10 MG tablet Take 10 mg by mouth daily. Active Active Problems Problem Noted Date Diagnosed Date Seizure 07/10/2021 Hypogonadism 07/10/2021 Obesity with body mass index 30 or greater 07/10 COVID-19 04/15/2021 S/P SPICE MIXER shunt 02/15/1999 Overview (07/10/2021): Non programmable CVA (cerebral vascular accident) 02/15/1993 Overview (07/10/2021): basal ganglia post op 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 Overview (07/10/2021): multiple surgeries; cranioplasty, shunts Hypothyroid 02/16/1992 Encounters Date Type Department Care Team Description 10/13/2024 Orders Only Pediatric Oncology, [facility] [address] [place] [address] [address] [place] [address] Hui Gomez MD, MPH Neuroblastoma (Primary Dx); History of radiation therapy 10/06/2024 11:00 AM EDT Anesthesia Event [facility] Radiology [address] [place] [address] Kane Shelton MD Ve, Guille Jackson MD, PhD 10/06/2024 7:55 AM EDT - 10/06/2024 11:59 PM EDT Hospital Encounter [facility] Radiology [address] [place] [address] Sarbjit Crawford MD Sou, Brian Sun, MD Sperry, Beau Patrick, MD Hayes, Jessica L, option trader Disposition: Home or Self Care 09/29/2024 11:00 AM EDT Pre-Admission Testing [facility] [address] [facility] [address] [place] [address] Unknown, [place], 06/26/2024 Procedure Pass [facility] Radiology [address] [place] [address] from Last 3 Months Social History Tobacco [...] not to disclose 2021 12:55 PM EDT Last Filed Vital Signs Vital Sign Reading Time Taken Comments Blood Pressure 149/86 10/06/2024 12:40 PM EDT Pulse 77 10/06/2024 12:40 PM EDT Temperature 36.8 C (98.3 F) 10/06/2024 12:05 PM EDT Respiratory Rate 26 10/06/2024 12:40 PM EDT Oxygen Saturation 96% 10/06/2024 12:40 PM EDT Inhaled Oxygen Concentration - - Weight 102.1 kg (225 lb) 07/10/2021 11:00 AM EDT Height 167.6 cm (5' 6 ) 07/10/2021 11:00 AM EDT Body Mass Index 36.32 07/10/2021 11:00 AM EDT Plan of Treatment Health Maintenance Due Date Last Done Comments Adult Td,Tdap Booster 1991 CREATININE LEVEL 1991 POTASSIUM LEVEL 1991 TSH LEVEL 1991 DEPRESSION SCREENING 2003 SMOKING Hx and SMOKELESS TOBACCO SCREENING 10/23/2004 HEPATITIS C SCREENING 10/23/2009 HIV ONE-TIME SCREENING (18-6 5 YEARS) 10/23/2009 LIPID PANEL 10/23/2009 PNEUMOCOCCAL VACCINES (0-49 years) (1 of 2 - PCV) 10/23/2010 COVID-19 VACCINE (3 - 2023-2 5 season) 2023 07/01/2020, 06/10/2020 INFLUENZA VACCINE (#1) 2024 , 11/11/2018 HEPATITIS A VACCINES Aged Out No long er eligible based on patient's age to complete this topic HIB VACCINES Aged Out No longer eligi ble based on patient's age to complete this topic MENINGOCOCCAL VACCINES (ACWY) Aged Out No longer eligible based on patient's age to complete this topic MENINGOCOCCAL VACCINES (B) Aged Out N o longer eligible based on patient's age to complete this topic Medical Devices Not on file Procedures Procedure Name Priority Date/Time Associated Diagnosis Comments MRI BRAIN WITH AND WITHOUT CONTRAST Routine 10/06/2024 11:20 AM EDT Neuroblastoma of brain AIRWAY PLACEMENT Routine 10/06/2024 11:2 0 AM EDT from Last 3 Months Results * MRI BRAIN WITH AND WITHOUT CONTRAST (10/06/2024 11:20 AM EDT) Anatomical Region Laterality Modality Head Magnetic Resonan ce 10/06/2024 1:12 PM EDT Impressions 10/06/2024 7:56 PM EDT 1. No evidence of recurrent tumor. 2. Stable appearance of the shunt and ventricles. Narrative 10/06/2024 7:56 PM EDT MRI BRAIN WITH AND WITHOUT CONTRAST Referring clinician's provided indication for this examination in Epic: Brain mass or lesion TECHNIQUE: Multi-sequence, multi-planar MRI of the brain was performed before and after intravenous contrast. COMPARISON: MRI BRAIN WITH AND WITHOUT CONTRAST FINDINGS: Brain Parenchyma: Posterior dural changes from right frontal tumor resection. Stable appearance of the surgical cavity. Unchanged curvilinear enhancement extending from the dura into the resection cavity, which is likely postsurgical. No new nodular enhancement. No acute infarct or hemorrhage. Small area of encephalomalacia in the left cerebellar hemisphere. Unchanged linear encephalomalacia in the left frontal lobe, which may be secondary to a prior catheter. Unchanged scattered foci of susceptibility artifact in the bilateral cerebral hemispheres, which are likely secondary to prior radiation treatment. Ventricular System and Extra-Axial Spaces: Unchanged small extra-axial fluid collection and mild dural thickening subjacent to the right frontoparietal cranioplasty. Left posterior parietal approach ventriculostomy catheter with the tip terminating in the anterior left lateral ventricle. Stable ventricular size. No midline shift or hydrocephalus. Extracranial Structures: Arterial flow voids in the skull base are present. Postsurgical changes from right frontoparietal craniectomy and cranioplasty. Moderate mucosal thickening in the right maxillary sinus and bilateral frontal sinuses. Mild mucosal thickening in the bilateral ethmoid air cells and left maxillary sinus. Layering fluid in the bilateral maxillary sinuses and pharynx. Procedure Note Steve Martinez MD - 10/06/2024 MRI BRAIN WITH AND WITHOUT CONTRAST Referring clinician's provided indication for this examination in Epic:Brain mass or lesion TECHNIQUE: Multi-sequence, multi-planar MRI of the brain was performedbefore and after intravenous contrast. COMPARISON: MRI BRAIN WITH AND WITHOUT CONTRAST FINDINGS: Brain Parenchyma: Posterior dural changes from right frontal tumorresection. Stable appearance of the surgical cavity. Unchanged curvilinearenhancement extending from the dura into the resection cavity, which islikely postsurgical. No new nodular enhancement. No acute infarct or hemorrhage. Small area of encephalomalacia in the leftcerebellar hemisphere. Unchanged linear encephalomalacia in the leftfrontal lobe, which may be secondary to a prior catheter. Unchangedscattered foci of susceptibility artifact in the bilateral cerebralhemispheres, which are likely secondary to prior radiation treatment. Ventricular System and Extra-Axial Spaces: Unchanged small extra-axialfluid collection and mild dural thickening subjacent to the rightfrontoparietal cranioplasty. Left posterior parietal approachventriculostomy catheter with the tip terminating in the anterior leftlateral ventricle. Stable ventricular size. No midline shift orhydrocephalus. Extracranial Structures: Arterial flow voids in the skull base arepresent. Postsurgical changes from right frontoparietal craniectomy andcranioplasty. Moderate mucosal thickening in the right maxillary sinus andbilateral frontal sinuses. Mild mucosal thickening in the bilateralethmoid air cells and left maxillary sinus. Layering fluid in thebilateral maxillary sinuses and pharynx. IMPRESSION: 1. No evidence of recurrent tumor. 2. Stable appearance of the shunt and ventricles. Sarbjit Crawford MD IMG MR HEAD/NECK Final Result * ANES ETT DOUBLE LUMEN - AIRWAY LDA (10/06/2024 11:20 AM EDT) Narrative Kane Shelton MD - 10/06/2024 11:20 AM EDT Kane Shelton MD 10/06/2024 11:21 AM Airway Placement Procedure Note: Patient was not difficult to intubate. Procedure performed by: fellow/resident/PROOF INSPECTOR Anesthesiologist: Kane Shelton MD Fellow/Resident/PROOF INSPECTOR: Khadar Choi MD Airway procedure initiated at:10/06/2024 11:20 AM and ended at. Personal Protective Equipment: Mask: surgical mask Eye Protection: eye shield Gloves: gloves Mask Ventilation: Quality: easy Adjunct: jaw thrust Airway Placement: Technique: video laryngoscopy Rapid sequence induction: yes Details: Blade type: Glidescope Blade size: Mac S3 Video Laryngoscopy was: elective Number of attempts: 1 ETT type: cuffed ETT size: 7.0 ETT depth at teeth: 22 Tube position confirmed by: bilateral breath sounds and EtCO2 Bite Block: soft Outcomes: Evidence of dental injury? no Complications observed? no Kane Shelton MD OR ANESTHESIA Final Result from Last 3 Months Insurance [employer] Advance Directives For more information, please contact: [phone] (9AM - 5PM [facility], Wednesday-Wednesday) Documents on File Type Date Recorded Patient Machine Tender Expl anation Legal Guardianship 07/17/2021 Guardians hip Care Teams Cae Engineer Relationship Specialty Start Date End Date Jaziel Johnston DO [address] [place], [place] [address] [address] PCP - General Internal Medicine 09/20/20 Jaziel Johnston DO [address] [place] [address] [place] [address] 09/20/20 Sonja Marquez, RN [address] [place] [address] [email or web address] Registered Nurse 09/19/14 Roxana Rose CNP [address] [place] [address] [phone] [email or web address] Nurse Practitioner 09/19/14 Danica Vences DO [address] [place] [address] Manufacturer Agent Internal Medicine 07/21/21 Additional Source Comments The information contained in this document represents components of the legal health record. It is not the complete legal health record.[facility]
--- OUTSIDE RECORDS SUMMARY | 2024-10-18 16:20 | XMS_ITS | Clinical Summary ---
Author Organization [facility] Address [address] [place] [address] Phone Care Team Providers Care Principal Systems Architect Name Role Phone Jaziel Johnston Primary Care Provider [phone] Jaziel Johnston Unavailable [phone] Jaziel Johnston Unavailable [phone] Jaziel Johnston Unavailable [phone] Jaziel Johnston Unavailable [phone] Sarbjit Crawford MD Unavailable [phone] Roxana Rose CNP Unavailable [phone] Allergies No known active allergies Medications aspirin 81 mg chewable tablet Dose: 81 mg, Dose Amount: 1 tab, PO, daily, Entered: 02/18/20 14:34:00 EST 1 Active midazolam (Nayzilam) 5 mg/spray (0.1 mL) spray,non-aeros ol Dose: 10 mg, Nasal, 1time, Special Instructions: 5 mg (one spray) in each nostril nostril for seizure longer than 5 minutes, Dispense Quantity: 2 EA, Refills: 0, Entered: 02/18/20 14:36[facility] Active amLODIPine 5 mg tablet Take 5 mg by mouth 1 time each day. Active cholecalciferol 25 mcg (1000 UT) tablet Take 1,000 Units by mouth 1 time each day. Active citalopram 10 mg tablet Take 20 mg by mouth 1 time each day. Active lisinopril 5 mg tablet Take 10 mg by mouth 1 time each day. 5 Active testosterone enanthate (Xyosted) 50 mg/0.5 mL auto-injector Inject 50 mg under the skin every 7 days. 5 Active levothyroxine 88 mcg tablet Take 88 mcg by mouth 1 time each day. 5 Active lamoTRIgine 25 mg chewable tablet Take 25 mg by mouth 2 times a day. Active lamoTRIgine 25 mg tablet 5 Active anastrozole (Arimidex) 1 mg chemo tablet Dose: 1 mg, Dose Amount: 1 tab, PO, daily, Entered: 02/18/20 14:34:00 EST 10/13/19 25 Discontinu ed(Med list cleanup) levothyroxine (Synthroid, Levoxyl) 75 mcg tablet Dose: 75 mcg, Dose Amount: 1 tab, PO, daily, Dispense Quantity: 30 tab, Refills: 11, Entered: 02/18/20 14:34:00 EST 10/12/19 25 Discontinu ed(Med list cleanup) testosterone (Testopel) implant Dose: 75 mg, Subcutaneous, G1enmdm, Entered: 02/18/20 14:34:00 EST 10/13/19 25 Discontinu ed(Med list cleanup) Active Problems Problem Noted Date Diagnosed Date Obstructive sleep apnea syndrome 10/12/2024 Hemiparesis affecting left s hugo as late effect of cerebrovascular accident ([facility]/HCC) 10/11/2024 Overview (10/11/2024): 1993- CVA as complication of brain radiation Hypogonadism in male 07/10/2021 S/P SEWER LINE PHOTO INSPECTOR shunt 02/15/1999 Overview (10/11/2024): Non programmable Hypothyroid 02/16/1992 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 Resolved Problems Problem Noted Date Diagnosed Date Resolved Date Seizure 07/10/2021 10/11/2024 Overview (10/11/2024): Resolved - off seizure medications since ~2019 CVA (cerebral vascular accident) 02/15/1993 10/11/2024 Overview (10/11/2024): basal ganglia post op Encounters Date Type Department Care Team Description 10/12/2024 3:00 PM EDT Telemedicine [facility] Genetics and Prevention, [facility] Cancer and Blood Disorders [place] [address] [place] [address] Rachel Mason MD Echmalian, Corinne, CGC 10/12/2024 2:00 PM EDT Telemedicine [facility] Neuro Oncology, [facility] Cancer and Blood Disorders [place] [address] [place] [address] Estelle Wellington MD Lewis, Courtney T, INSTRUMENT INSTALLER Neuroblastoma of central nervous system (HCC) (Primary Dx); Hemiparesis affecting left side as late effect of cerebrovascular accident (CMS/HCC) (HCC); Hypogonadism in male; S/P SEWER LINE PHOTO INSPECTOR shunt; Hypothyroidism, unspecified type 10/12/2024 2:00 PM EDT Telemedicine [facility] Neuro Oncology, [facility] Cancer and Blood Disorders [address] [place] [address] Hui Gomez MD Neuroblastoma of central nervous system (HCC) (Primary Dx); Hemiparesis affecting left side as late effect of cerebrovascular accident (CMS/HCC) (HCC); Hypogonadism in male; Acquired hypothyroidism; S/P SEWER LINE PHOTO INSPECTOR shunt 10/06/2024 - 10/06/2024 11:59 PM EDT Hospital Encounter [facility] [address] [facility] [address] [place] [id number] Discharge Disposition: Home from Last 3 Months Immunizations Immunization Administration Dates Next Due Influenza, injectable, quadrivalent 12/05/2020,0 11/11/2018 Social History Tobacco Use Types Packs/Day Years [...] 07/17/2021 12:33 PM EDT Plan of Treatment Health Maintenance Due [...] M series) 10/23/2018 COVID-19 Vaccine (3 - 2024-2 6 season) 2024 07/01/2020, 06/10/2020 Influenza Vaccine (#1) 2024 , [...] on patient's age to complete this topic Procedures Procedure Name Priority Date/Time Associated Diagnosis Comments MR OUTSIDE IMAGES ON PACS Routine 10/06/2024 12:28 PM EDT from Last 3 Months Results * MR Outside Images On PACS (10/06/2024 12:28 PM EDT) Narrative [facility] PACS VR - 10/09/2024 12:28 PM EDT The images available with this report have been imported from an outside institution and are to be used for reference purposes only. Please note that these imported images might not be of diagnostic quality. Dictated by: HERMINIA ELLSWORTH MD, JALEN 10/09/24 Verified by: HERMINIA ELLSWORTH MD, JALEN 10/09/24 us Provider Preference No-Case IMG MRI PROCEDURES F inal Result [facility] PACS VR from Last 3 Months [facility] [employer] Care Teams Principal Systems Architect Relationship Specialty Start Date End Date Jaziel Johnston [address] [place] [address] PCP - General 06/22/23 Jaziel Johnston [address] [place] [address] PCP - Insurance PCP 01/24/20 Jaziel Johnston [address] [place] [address] PCP - DFCIPCP 07/17/21 Jaziel Johnston [address] [place] [address] PCP - Clinical PCP 04/23/11 Jaziel Johnston [address] [place] [address] PCP - Insurance Identified PCP 10/17/23 Sarbjit Crawford MD [address] [place] [address] Oncologist Pediatric Hematology and Oncology 11/10/23 Roxana Rose CNP [address] [place] [address] Nurse Practitioner Pediatric Hematology and Oncology 11/10/23
--- OUTSIDE RECORDS SUMMARY | 2024-10-18 16:20 | XMS_ITS | Encounter Summary ---
Author Organization [facility] Address [address] [place] [address] Phone Care Team Providers Care Bleach Supervisor Name Role Phone Jaziel Johnston DO Primary Care Provider Jaziel Johnston DO Unavailable Osman Alvarez MD, PhD Unavailable Verito Sonja Hay RN Unavailable [phone] Roxana Rose WET MACHINE TENDER Unavailable [phone] Danica Vences DO Unavailable [phone] Encounter Details Date Type Department Care Team (Late st Contact Info) Description 05/13/2021 Procedure Pass [facility] Periop [address] [place] [address] Social History Tobacco Use Types Packs/Day Years [...] on filedocumented in this encounter Care Teams Bleach Supervisor Relationship Specialty Start Date End Date Jaziel Johnston DO [address] [place] [address] PCP - General Internal Medicine 09/20/20 Jaziel Johnston DO [address] [place] [address] 09/20/20 Osman Alvarez MD, PhD [address] [place] [address] Primary Oncologist Pediatrics 09/19/14 3 Sonja Marquez, MEGHAN [address] [place] [address] [email or web address] Registered Nurse 09/19/14 Roxana Rose CNP [address] [place] [phone] [email or web address] Nurse Practitioner 09/19/14 Danica Vences DO [address] [place] [address] Felt Hat Flanging Operator Internal Medicine 07/21/21 documented as of this encounter Additional Source Comments The information contained in this document represents components of the legal health record. It is not the complete legal health record.[facility]
--- OUTSIDE RECORDS SUMMARY | 2024-10-18 16:20 | XMS_ITS | Encounter Summary ---
Author Organization [facility] Address [address] [place] [address] Phone Care Team Providers Care Tree And Shrub Worker Name Role Phone Jaziel Johnston DO Primary Care Provider Jaziel Johnston DO Unavailable [phone] Osman Alvarez MD, PhD Unavailable Verito Sonja Hay RN Unavailable [phone] Roxana Rose PROOF SORTER Unavailable Danica Vences DO Unavailable [phone] Encounter Details Date Type Department Care Team (Late st Contact Info) Description 05/13/2021 Procedure Pass [facility] [address] [place] [address] Social History Tobacco Use Types Packs/Day Years [...] on filedocumented in this encounter Care Teams Tree And Shrub Worker Relationship Specialty Start Date End Date Jaziel Johnston DO [address] [place] [address] PCP - General Internal Medicine 09/20/20 Jaziel Johnston DO [address] [place] [address] 09/20/20 Osman Alvarez MD, PhD [address] [place] [address] Primary Oncologist Pediatrics 09/19/14 3 Sonja Marquez, MEGHAN [address] [place] [address] [email or web address] Registered Nurse 09/19/14 Roxana Rose CNP [address] [place] [address] [phone] [email or web address] Nurse Practitioner 09/19/14 Danica Vences DO [address] [place] [address] Timber Management Professor Internal Medicine 07/21/21 documented as of this encounter Additional Source Comments The information contained in this document represents components of the legal health record. It is not the complete legal health record.[facility]
--- OUTSIDE RECORDS SUMMARY | 2024-10-18 16:20 | XMS_ITS | Encounter Summary ---
Author Organization [facility] Address [address] [place] [address] Phone Care Team Providers Care Overseamer Name Role Phone Jaziel Johnston DO Primary Care Provider [phone] Jaziel Johnston DO Unavailable [phone] Osman Alvarez MD, PhD Unavailable Verito Sonja Hay RN Unavailable [phone] Roxana Rose CLIENT INSIGHTS CONSULTANT Unavailable [phone] Danica Vences DO Unavailable [phone] Encounter Details Date Type Department Care Team (Late st Contact Info) Description 05/13/2021 Procedure Pass [facility] Periop [address] [place] [address] Social History Tobacco Use Types Packs/Day Years [...] on filedocumented in this encounter Care Teams Overseamer Relationship Specialty Start Date End Date Jaziel Johnston DO [address] [place] [address] PCP - General Internal Medicine 09/20/20 Jaziel Johnston DO [address] [place] [address] 09/20/20 Osman Alvarez MD, PhD [address] [place] [address] Primary Oncologist Pediatrics 09/19/14 3 Sonja Marquez, MEGHAN [address] [place] [address] [email or web address] Registered Nurse 09/19/14 Roxana Rose CNP [address] [place] [address] [phone] [email or web address] Nurse Practitioner 09/19/14 Danica Vences DO [address] [place] [address] Content Administrator Internal Medicine 07/21/21 documented as of this encounter Additional Source Comments The information contained in this document represents components of the legal health record. It is not the complete legal health record.[facility]
== END 2024-10-18 14:35 | disposition home or self-care (01) ==
LOC: HO.HOP 14:03
PROVIDERS: PCP Internal Medicine; Visit Provider Clinical Nurse Specialist Psychiatric/Mental Health, Adult
DX: F41.1 Generalized anxiety disorder (principal)
CPT/HCPCS: 99213

== ENCOUNTER → 2024-10-18 14:03 | Outpatient (BNVA) | payer OTHER, SELFPAY | PROVIDERS: PCP Internal Medicine; Visit Provider Clinical Nurse Specialist Psychiatric/Mental Health, Adult | DX: F41.1 Generalized anxiety disorder (principal) | CPT/HCPCS: 99212 ==

== ENCOUNTER 2024-11-07 07:56 | Outpatient (AMB) | payer OTHER, SELFPAY ==
--- NOTE | 2024-11-07 07:58 | A.OFFPC_ITS ---
Vital Signs 11/07/24 08:08 Height 5 ft 6 in Weight 194 lb 0.4 oz BMI 31.3 BP 142/72 H Blood Pressure Location Rt brachial Pulse 73 Temp 97.3 F Pulse Oximetry (%) 98 Intake Visit Reasons: follow up Intake Note: no issues Allergies No Known Allergies Allergy (Verified 11/07/24 08:04) Tobacco use date assessed: 07/18/24 Dental Screening Dental Screen Date: 05/23/24 HPI follow up HPI Details 34-year-old male presents to the office for a follow-up visit. Patient has been taking his medications as directed. In the last office visit I had increased his blood pressure medications. His mother reports that he has blood pressures at home have been in range. She will enter them via the portal after she goes home today. He reports no symptoms of headache or blurred vision. Patient also saw the psychiatrist who has increased his SSRI dosage and added an antiseizure medication. The symptoms he had complained in the last office visit of increased irritability has since subsided. [facility] Medical History Brain tumor Generalized anxiety disorder Essential hypertension CVA (cerebral vascular accident) Neuroblastoma HLD (hyperlipidemia) Gynecomastia Vitamin D deficiency Obesity (BMI 30-39.9) Hypopituitarism Non-toxic multinodular goiter Post-surgical hypothyroidism Seizure Hypogonadotropic hypogonadism Surgical History History of ventriculoperitoneal shunting Hx of brain surgery History of thyroidectomy, subtotal Family History Father Prostate cancer Mother BP (high blood pressure) Social History Housing: House Alcohol intake: current Alcohol intake frequency: holidays/special occasions only Patient Tobacco Use Status: Never used Tobacco service: No Current occupational status: employed Cognitive needs: Yes (brain injury ) Hearing needs: No Vision needs: No Questionnaire PHQ-9 Over the last 2 weeks, how often have you been bothered by any of the following problems? 1. Little interest or pleasure in doing things: not at all 2. Feeling down, depressed, or hopeless: several days 3. Trouble falling or staying asleep, or sleeping too much: not at all 4. Feeling tired or having little energy: nearly every day 5. Poor appetite or overeating: nearly every day 6. Feeling bad about yourself - or that you are a failure or have let yourself or your family down: nearly every day 7. Trouble concentrating on things, such as reading the newspaper or watching television: nearly every day 8. Moving or speaking so slowly that other people could have noticed. Or the opposite - being so fidgety or restless that you have been moving around a lot more than usual: several days 9. Thoughts that you would be better off or of hurting yourself in some way: not at all Total score: 14 Source: Developed by Drs. Jaziel Coronado, Rand Lloyd, Shukri Lucas and colleagues, with an educational ana from [employer]. Thrive Questionnaire Date Thrive assessed: 05/23/24 I am a: Patient What is your living situation today?: I have a steady place to live Within the past 12 months, did the food you bought not last and you didn't have the money to get more?: Never true Within the past 12 months, did you worry whether your food would run out before you got money to buy more?: Never true Do you have trouble paying for medicines?: No Do you have trouble getting transportation to medical appointments?: No Do you have trouble paying your heating and electricity bill?: No Do you have trouble taking care of your child, family member or friend?: No Do you have trouble with day-to-day activities such as bathing, preparing meals, shopping, managing finances, etc.?: No Are you currently unemployed and looking for a job?: No Are you interested in more education?: No Please select the resources that you would like help with: None THRIVE Score: 0 AUDIT C Alcohol Use Questionnaire (AUDIT-C) 1. How often do you have a drink containing alcohol?: Monthly or less 2. How many drinks containing alcohol do you have on a typical day when you are drinking?: 1 or 2 3. How often do you have six or more drinks on one occasion?: Never Total Score: 1 ANTIONETTE-7 AMB Questionnaire ANTIONETTE-7 Date ANTIONETTE - 7 assessed: 05/23/24 Feeling nervous, anxious, or on edge: 1 = Several days Not being able to stop or control worryin = Several days Worrying too much about different things: 1 = Several days Trouble relaxin = Not at all Being so restless that it is hard to sit still: 0 = Not at all Becoming easily annoyed or irritable: 1 = Several days Feeling afraid as if something awful might happen: 0 = Not at all Total ANTIONETTE-7 score (0-4 normal; 5-9 mild; 10-14 moderate; 15-21 severe): 4 Source: Developed by Drs. Jaziel Coronado, Rand Lloyd, Shukri Lucas and colleagues, with an educational ana from [employer]. Physical exam (Primary Care) Vital Signs: Last Vital Signs Temp 97.3 F 11/07/24 08:08 Pulse 73 11/07/24 08:08 BP 142/72 H 11/07/24 08:08 Pulse Ox 98 11/07/24 08:08 BMI result Body Mass Index 31.3 Tobacco/Smoking Status: Tobacco use Status Tobacco use date assessed 07/18/24 11/07/24 07:59 Patient Tobacco Use Status Never used Tobacco 11/07/24 07:59 PHQ-9: PHQ-9 Score PHQ-9: Total score 14 11/07/24 08:09 Thrive Assessment: Date of Thrive Assessment Date Thrive assessed 05/23/24 11/07/24 07:59 Const General: cooperative and healthy appearing Nutritional Appearance: well nourished Orientation/consciousness: patient oriented x3 Limitations: no limitations HENMT Head: Yes normal to inspection Eyes General: appearance normal, both eyes and all related structures Neck Neck: Yes normal visual inspection Chest Chest palpation & inspection: normal palpation of entire chest wall Resp Effort & Inspection: normal respiratory effort Neuro Other: Fixed flexion deformity at the left elbow. General: patient oriented x3 Coding Level of Care Code Est Pt Level 4 (46404) Complex EM visit Add On G2211 Diagnoses Generalized anxiety disorder F41.1 Essential hypertension I10 Post-surgical hypothyroidism E89.0 Assessment & Plan Assessment & Plan (1) Generalized anxiety disorder: Code(s): F41.1 - Generalized anxiety disorder Category: Medical Plan: Continue medications at same dosage. (2) Essential hypertension: Code(s): I10 - Essential (primary) hypertension Category: Medical Plan: Mother to bring in the blood pressure readings. Continue medications at same dosage. (3) Post-surgical hypothyroidism: Code(s): E89.0 - Postprocedural hypothyroidism Category: Medical Plan: Blood work has been ordered. Will correct the Synthroid dose accordingly. Plan Patient had an MRI done in [place] regarding a follow-up on his brain tumor. A message has been sent to request the office visit and the report on the MRI. Orders: Orders Complete Blood Count no Diff Today E89.0 - Postprocedural hypothyroidism, F41.1 - Generalized anxiety disorder, I10 - Essential (primary) hypertension Lipid Panel Today E89.0 - Postprocedural hypothyroidism, F41.1 - Generalized anxiety disorder, I10 - Essential (primary) hypertension UA and rflx microscopic Today E89.0 - Postprocedural hypothyroidism, F41.1 - Generalized anxiety disorder, I10 - Essential (primary) hypertension Basic Metabolic Panel Today E89.0 - Postprocedural hypothyroidism, F41.1 - Generalized anxiety disorder, I10 - Essential (primary) hypertension Liver Panel Today E89.0 - Postprocedural hypothyroidism, F41.1 - Generalized anxiety disorder, I10 - Essential (primary) hypertension Thyroid Stimulating Hormone Today E89.0 - Postprocedural hypothyroidism, F41.1 - Generalized anxiety disorder, I10 - Essential (primary) hypertension
--- OUTSIDE RECORDS SUMMARY | 2024-11-07 08:00 | XMS_ITS | Encounter Summary ---
Author Organization [facility] Address [address] [place] [address] Phone Care Team Providers Care Print Developer Automatic Name Role Phone Jaziel Johnston DO Primary Care Provider Jaziel Johnston DO Unavailable Osman Alvarez MD, PhD Unavailable Verito Sonja Hay RN Unavailable [phone] Roxana Rose CORRECTIONAL MAINTENANCE TECHNICIAN Unavailable Danica Vences DO Unavailable [phone] Encounter Details Date Type Department Care Team (Late st Contact Info) Description 05/13/2021 Procedure Pass [facility] Periop [address] [place] [address] Social History Tobacco Use Types Packs/Day Years [...] on filedocumented in this encounter Care Teams Print Developer Automatic Relationship Specialty Start Date End Date Jaziel Johnston DO [address] [place] [address] PCP - General Internal Medicine 09/20/20 Jaziel Johnston DO [address] [place] [address] 09/20/20 Osman Alvarez MD, PhD [address] [place] [address] Primary Oncologist Pediatrics 09/19/14 3 Sonja Marquez, MEGHAN [address] [place] [phone] [email or web address] Registered Nurse 09/19/14 Roxana Rose CNP [address] [place] [phone] [email or web address] Nurse Practitioner 09/19/14 Danica Vences DO [address] [place] [address] Rheumatology Specialist Internal Medicine 07/21/21 documented as of this encounter Additional Source Comments The information contained in this document represents components of the legal health record. It is not the complete legal health record.[facility]
--- OUTSIDE RECORDS SUMMARY | 2024-11-07 08:00 | XMS_ITS | Clinical Summary ---
Author Organization [facility] Address [address] [place] [address] Phone Care Team Providers Care Repair Technician Name Role Phone Jaziel Johnston DO Primary Care Provider Jaziel Johnston DO Unavailable [phone] Sonja Marquez RN Unavailable [phone] Roxana Rose REPAIRER SHOE STICKS Unavailable [phone] Danica Vences DO Unavailable [phone] Allergies No known active allergies Medications levothyroxine [...] 30 or greater 07/10 COVID-19 04/15/2021 S/P KITCHEN HELP HANDYMAN shunt 02/15/1999 Overview (07/10/2021): Non programmable CVA (cerebral vascular accident) 02/15/1993 Overview (07/10/2021): basal ganglia post op 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 Overview (07/10/2021): multiple surgeries; cranioplasty, shunts Hypothyroid 02/16/1992 Encounters Date Type Department Care Team Description 10/13/2024 Orders Only Pediatric Oncology, [facility] [address] [place] [address] [address] [place] [address] Hui Gomez MD, MPH Neuroblastoma (Primary Dx); History of radiation therapy 10/06/2024 11:00 AM EDT Anesthesia Event [facility] Radiology [address] [place] [address] Kane Shelton MD Ve, Guille Jackson MD, PhD 10/06/2024 7:55 AM EDT - 10/06/2024 11:59 PM EDT Hospital Encounter [facility] [address] [place] [address] Sarbjit Crawford MD Sou, Brian Sun, MD Sperry, Beau Patrick, MD Hayes, Jessica L, cns Disposition: Home or Self Care 09/29/2024 11:00 AM EDT Pre-Admission Testing [facility] [address] [facility] 2nd [place] [address] Unknown, Alonzo, 06/26/2024 Procedure Pass [facility] [address] [place] [address] from Last 3 Months Social History Tobacco [...] years) (1 of 2 - PCV) 10/23/2010 INFLUENZA VACCINE (#1) 2024 , 11/11/2018 COVID-19 VACCINE (3 - 2024-2 6 season) 2024 07/01/2020, 06/10/2020 HEPATITIS A VACCINES Aged Out No long [...] not difficult to intubate. Procedure performed by: fellow/resident/CLEARING INSPECTOR Anesthesiologist: Kane Shelton MD Fellow/Resident/CLEARING INSPECTOR: Khadar Choi MD Airway procedure initiated [...] Final Result from Last 3 Months Insurance [facility] Advance Directives For more information, please contact: [phone] (9AM - 5PM [facility], Wednesday-Wednesday) Documents on File Type Date Recorded Patient Reiki Practitioner Expl anation Legal Guardianship 07/17/2021 Guardians hip Care Teams Repair Technician Relationship Specialty Start Date End Date Jaziel Johnston DO [address] [place], [place] [address] [address] PCP - General Internal Medicine 09/20/20 Jaziel Johnston DO [address] [place] [address] [place] [address] 09/20/20 Sonja Marquez, RN [address] [place] [address] [email or web address] Registered Nurse 09/19/14 Roxana Rose CNP [address] [place] [address] [address] [email or web address] Nurse Practitioner 09/19/14 Danica Vences DO [address] [place] [address] Quality Rn Internal Medicine 07/21/21 Additional Source Comments The information contained in this document represents components of the legal health record. It is not the complete legal health record.[facility]
--- OUTSIDE RECORDS SUMMARY | 2024-11-07 08:00 | XMS_ITS | Clinical Summary ---
Author Organization [facility] Address [address] [place] [address] Phone Care Team Providers Care Highway Inspector Name Role Phone Jaziel Johnston Primary Care Provider [phone] Jaziel Johnston Unavailable [phone] Jaziel Johnston Unavailable [phone] Jaziel Johnston Unavailable [phone] Jaziel Johnston Unavailable [phone] Sarbjit Crawford MD Unavailable [phone] Roxana Rose CNP Unavailable [phone] Allergies No known active allergies Medications aspirin [...] testosterone (Testopel) implant Dose: 75 mg, Subcutaneous, [id number], Entered: 02/18/20 14:34:00 EST 10/13/19 25 Discontinu ed(Med list cleanup) Active Problems Problem Noted Date Diagnosed Date Obstructive sleep apnea syndrome 10/12/2024 Hemiparesis affecting left s hugo as late effect of cerebrovascular accident ([facility]/HCC) 10/11/2024 Overview (10/11/2024): 1993- CVA as complication of brain radiation Hypogonadism in male 07/10/2021 S/P PEDIATRIC REGISTERED NURSE shunt 02/15/1999 Overview (10/11/2024): Non programmable Hypothyroid 02/16/1992 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 Resolved Problems Problem Noted Date Diagnosed Date Resolved Date Seizure 07/10/2021 10/11/2024 Overview (10/11/2024): Resolved - off seizure medications since ~2019 CVA (cerebral vascular accident) 02/15/1993 10/11/2024 Overview (10/11/2024): basal ganglia post op Encounters Date Type Department Care Team Description 10/12/2024 3:00 PM EDT Telemedicine [facility] Genetics and Prevention, [facility] Cancer [facility] Disorders [place] [address] [place] [address] Rachel Mason MD Echmalian, Corinne, CGC Neuroblastoma of central nervous system (HCC) 10/12/2024 2:00 PM EDT Telemedicine [facility] Neuro Oncology, [facility] [place] [address] [place] [address] Estelle Wellington MD Lewis, Courtney T, SETH Neuroblastoma of central nervous system (HCC) (Primary Dx); Hemiparesis affecting left side as late effect of cerebrovascular accident (CMS/HCC) (HCC); Hypogonadism in male; S/P PEDIATRIC REGISTERED NURSE shunt; Hypothyroidism, unspecified type 10/12/2024 2:00 PM EDT Telemedicine [facility] Neuro Oncology, [facility] [address] [address] Hui Gomez MD Neuroblastoma of central nervous system (HCC) (Primary Dx); Hemiparesis affecting left side as late effect of cerebrovascular accident (CMS/HCC) (HCC); Hypogonadism in male; Acquired hypothyroidism; S/P PEDIATRIC REGISTERED NURSE shunt 10/06/2024 - 10/06/2024 11:59 PM EDT Hospital Encounter [facility] [address] [facility] 2 [place] [id number] Discharge Disposition: Home from Last 3 Months [...] of 3 - 19+ 3-dose series) 10/23/2010 Influenza Vaccine (#1) 2024 , 11/11/2018 HIB Vaccines Aged Out No longer eligi ble based on patient's age to complete this topic HPV Vaccines (No Doses Required) Completed Hepatitis A Vaccines Aged Out No long [...] On PACS (10/06/2024 12:28 PM EDT) Narrative [facility] RAD[facility]OLOG[facility] PACS VR - 10/09/2024 12:28 PM EDT The images available with this report have been imported from an outside institution and are to be used for reference purposes only. Please note that these imported images might not be of diagnostic quality. Dictated by: JALEN JONES MD 10/09/24 Verified by: JALEN JONES MD 10/09/24 us Provider Preference No-Case IMG MRI PROCEDURES F inal Result [facility] PACS VR from Last 3 Months Insurance [employer] Care Teams Highway Inspector Relationship Specialty Start Date End Date Jaizel Johnston [address] [place] [address] PCP - General 06/22/23 Jaziel Johnston [address] [place] [address] PCP - Insurance PCP 01/24/20 Jaziel Johnston [address] [place] [address] PCP - DFCIPCP 07/17/21 Jaziel Johnston [address] [place] [address] PCP - Clinical PCP 04/23/11 Jaziel Johnston [address] [place] [address] PCP - Insurance Identified PCP 10/17/23 Sarbjit Crawford MD [address] [place] [address] Oncologist Pediatric Hematology and Oncology 11/10/23 Roxana Rose CNP [address] [facility] [address] [place] [address] Nurse Practitioner Pediatric Hematology and Oncology 11/10/23
--- OUTSIDE RECORDS SUMMARY | 2024-11-07 08:00 | XMS_ITS | Encounter Summary ---
Author Organization [facility] Address [address] [place] [address] Phone Care Team Providers Care Pipe Production Worker Name Role Phone Jaziel Johnston DO Primary Care Provider Jaziel Johnston DO Unavailable [phone] Osman Alvarez MD, PhD Unavailable Verito Sonja Hay RN Unavailable [phone] Roxana Rose BOND CLERK Unavailable [phone] Danica Vences DO Unavailable [phone] Encounter Details Date Type Department Care Team (Late st Contact Info) Description 05/13/2021 Procedure Pass [facility] [address] [place] [address] Social History Tobacco Use Types Packs/Day Years [...] on filedocumented in this encounter Care Teams Pipe Production Worker Relationship Specialty Start Date End Date Jaziel Johnston DO [address] [place] [address] PCP - General Internal Medicine 09/20/20 Jaziel Johnston DO [address] [place] [address] 09/20/20 Osman Alvarez MD, PhD [address] [place] [address] Primary Oncologist Pediatrics 09/19/14 3 Sonja Marquez, MEGHAN [address] [place] [address] [email or web address] Nurse 09/19/14 Roxana Rose CNP [address] [place] [phone] [email or web address] Nurse Practitioner 09/19/14 Danica Vences DO [address] [place] [address] Harness Puller Internal Medicine 07/21/21 documented as of this encounter Additional Source Comments The information contained in this document represents components of the legal health record. It is not the complete legal health record.[facility]
--- OUTSIDE RECORDS SUMMARY | 2024-11-07 08:00 | XMS_ITS | Encounter Summary ---
Author Organization [facility] Address [address] [place] [address] Phone Care Team Providers Care Refining Machine Operator Name Role Phone Jaziel Johnston DO Primary Care Provider Jaziel Johnston DO Unavailable Osman Alvarez MD, PhD Unavailable Verito Sonja Hay RN Unavailable [phone] Roxana Rose CRYSTALLOGRAPHY TEACHER Unavailable Danica Vences DO Unavailable [phone] Encounter Details Date Type Department Care Team (Late st Contact Info) Description 05/13/2021 Procedure Pass [facility] Periop [address] [place] [address] Social History Tobacco Use Types Packs/Day Years [...] on filedocumented in this encounter Care Teams Refining Machine Operator Relationship Specialty Start Date End Date Jaziel Johnston DO [address] [place] [address] PCP - General Internal Medicine 09/20/20 Jaziel Johnston DO [address] [place] [address] 09/20/20 Osman Alvarez MD, PhD [address] [place] [address] Primary Oncologist Pediatrics 09/19/14 3 Sonja Marquez, MEGHAN [address] [place] [address] [email or web address] Registered Nurse 09/19/14 Roxana Rose CNP [address] [place] [phone] [email or web address] Nurse Practitioner 09/19/14 Danica Vences DO [address] [place] [address] Cigar Head Piercer Internal Medicine 07/21/21 documented as of this encounter Additional Source Comments The information contained in this document represents components of the legal health record. It is not the complete legal health record.[facility]
--- OUTSIDE RECORDS SUMMARY | 2024-11-07 08:00 | XMS_ITS | Encounter Summary ---
Author Organization [facility] Address [address] [place] [address] Phone Care Team Providers Care Spinning Mule Tender Name Role Phone Jaziel Johnston DO Primary Care Provider Jaziel Johnston DO Unavailable [phone] Osman Alvarez MD, PhD Unavailable Verito Sonja Hay RN Unavailable [phone] Roxana Rose TOOL RADIAL DRILL PRESS SET UP OPERATOR Unavailable [phone] Danica Vences DO Unavailable [phone] Encounter Details Date Type Department Care Team (Late st Contact Info) Description 05/13/2021 Procedure Pass [facility] Periop [address] [place] [address] Social History Tobacco Use Types Packs/Day Years [...] on filedocumented in this encounter Care Teams Spinning Mule Tender Relationship Specialty Start Date End Date Jaziel Johnston DO [address] [place] [address] PCP - General Internal Medicine 09/20/20 Jaziel Johnston DO [address] [place] [address] 09/20/20 Osman Alvarez MD, PhD [address] [place] [address] Primary Oncologist Pediatrics 09/19/14 3 Sonja Marquez, MEGHAN [address] [place] [address] [email or web address] Registered Nurse 09/19/14 Roxana Rose CNP [address] [place] [phone] [email or web address] Nurse Practitioner 09/19/14 Danica Vences DO [address] [place] [address] Internal Medicine Doctor Internal Medicine 07/21/21 documented as of this encounter Additional Source Comments The information contained in this document represents components of the legal health record. It is not the complete legal health record.[facility]
--- OUTSIDE RECORDS SUMMARY | 2024-11-07 08:00 | XMS_ITS | Encounter Summary ---
Author Organization [facility] Address [facility] [employer] [facility] [address] [place] [address] Phone Care Team Providers Care Sorter Laundry Articles Name Role Phone Jaziel Johnston DO Primary Care Provider [phone] Jaziel Johnston DO Unavailable [phone] Sonja Marquez RN Unavailable Roxana Rose BALLING MACHINE OPERATOR Unavailable [phone] Danica Vences DO Unavailable Encounter Details Date Type Department Care Team (Late st Contact Info) Description 06/26/2024 Procedure Pass [facility] Radiology [address] [place] [address] Social History Tobacco Use Types Packs/Day Years [...] on filedocumented in this encounter Care Teams Sorter Laundry Articles Relationship Specialty Start Date End Date Jaziel Johnston DO [address] [place] [address] PCP - General Internal Medicine 09/20/20 Jaziel Johnston DO [address] [place] [address] 09/20/20 Sonja Marquez RN [address] [place] [address] [email or web address] Registered Nurse 09/19/14 Roxana Rose CNP [address] [place] [phone] [email or web address] Nurse Practitioner 09/19/14 Danica Vences DO [address] [place] [address] Procurement Buyer Internal Medicine 07/21/21 documented as of this encounter Additional Source Comments The information contained in this document represents components of the legal health record. It is not the complete legal health record.[facility]
[2024-11-07 08:08] VITALS: BP 142/72; PULSE 73; TEMP 36.3; O2SAT 98; BMI 31.3
== END 2024-11-07 08:26 | disposition home or self-care (01) ==
LOC: HO.HMCSH 07:56
PROVIDERS: PCP Internal Medicine; Visit Provider Internal Medicine
DX: F41.1 Generalized anxiety disorder (principal); I10 Essential (primary) hypertension; E89.0 Postprocedural hypothyroidism

== ENCOUNTER 2024-11-07 07:56 | Outpatient (REF) | payer OTHER, SELFPAY ==
[2024-11-07 12:39] LABS: Thyroid Stimulating Hormone 1.84 uIU/mL (0.32-4.0)
[2024-11-07 12:42] LABS: Anion Gap 11 (12-20)
[2024-11-07 12:48] LABS: Alanine Aminotransferase 31 U/L (0-40); Albumin Level 4.5 g/dL (3.5-5.0); Alkaline Phosphatase 98 U/L (39-117); Aspartate Amino Transferase 17 U/L (5-37); Blood Urea Nitrogen 17 mg/dL (9-16); Calcium 9.3 mg/dL (8.4-10.2); Carbon Dioxide 23 mmol/L (22-29); Chloride 110 mmol/L (96-108); Cholesterol 205 mg/dL (<200); Estimated Glomerular Filt Rate > 60; HDL Cholesterol 33 mg/dL (>40); Potassium 4.2 mmol/L (3.3-5.1); Sodium 140 mmol/L (135-145); Total Protein 7.2 g/dL (6.5-8.0); Triglycerides 153 mg/dL (<150)
== END 2024-11-07 07:57 | disposition home or self-care (01) ==
LOC: HO.HMGCLDS 07:56
PROVIDERS: PCP Internal Medicine; Visit Provider Internal Medicine
DX: F41.1 Generalized anxiety disorder (principal); I10 Essential (primary) hypertension; E89.0 Postprocedural hypothyroidism
CPT/HCPCS: 36415; 80048; 80061; 80076; 81003; 84443; 85027; 99212

== ENCOUNTER 2024-11-29 12:52 | Outpatient (AMB) | payer OTHER, SELFPAY ==
--- NOTE | 2024-11-29 12:55 | MHC.OFFVISPS ---
Intake Intake Visit Reasons: f/u consultation Allergies No Known Allergies Allergy (Verified 11/07/24 08:04) HPI- Psychiatric Chief Complaint: f/u consultation HPI Narrative: Lana attended his appointment today with his father. Father reports not markedly improved with continued unpredictable mood and impulsivity at times. However, father reports overall less agitated, less reactive to negative stimuli. Current stressors-mother just completed surgery and is recovering without complications and maternal aunt has had a recurrence of cancer. Lana expressed worry about this aunt. He agrees with his father's assessment of his mood-describing feeling less stress at work when things go wrong, however he can react with anger at times which is suprising to him at times. Both pt and father would like mother's input regarding meds and ask that we not make changes today. Past Psychiatric History: IP: Denies OP: Hx of seeing Tony at [facility] retired- gave great interventions and exercises to help manage mood and neurological based interventions (resetting, tapping) that at times helps Has ISP team Trials: Trileptal for seizure-did help with mood, Citalopram Subjective Subjective Subjective Medication Compliance: Yes Side effects from medications: No Review of Systems Medical Review of Systems: unchanged Mental Status Exam Mental Status Exam Patient Appearance: Appropriate Patient Orientation: Person, Place, Time and Situation Level of Consciousness: Alert Patient Behavior: Talkative and Good Eye Contact Mood Description: Apprehensive Affect Description: Appropriate Patient Cognition Impaired: No Ability to Follow Directions: Good Speech Pattern: Appropriate Memory Description: Intact Hallucinations: None Delusions: Not Present Thought Process: Intact Thought Content: positive for Intact Judgement: Good Assessment and Plan Assessment & Plan (1) Generalized anxiety disorder: Status: Acute Code(s): F41.1 - Generalized anxiety disorder Plan Continue Citalopram and Lamictal Counseling and coordination of Care Medication management counseling: Effectiveness, Side effects, Dosing range, Duration and Adherence Details: I spent [] minutes reviewing the record, seeing the patient and documenting in the medical record. Counseling provided to the patient/caregiver as outlined below. Addressed patient/caregiver concerns regarding current medication regime including effective adherence. Addressed patient/caregiver concerns regarding diagnosis and prognosis including accuracy of diagnosis, prognosis over time, impact of diagnosis. Addressed patient/caregiver concerns regarding impact of recent stressors. [facility] Medical History Brain tumor Generalized anxiety disorder Essential hypertension CVA (cerebral vascular accident) Neuroblastoma HLD (hyperlipidemia) Gynecomastia Vitamin D deficiency Obesity (BMI 30-39.9) Hypopituitarism Non-toxic multinodular goiter Post-surgical hypothyroidism Seizure Hypogonadotropic hypogonadism Surgical History History of ventriculoperitoneal shunting Hx of brain surgery History of thyroidectomy, subtotal Family History Father Prostate cancer Mother BP (high blood pressure) Social History Housing: House Alcohol intake: current Alcohol intake frequency: holidays/special occasions only Patient Tobacco Use Status: Never used Tobacco service: No Current occupational status: employed Cognitive needs: Yes (brain injury ) Hearing needs: No Vision needs: No Social History: Born in [place], a triplet. Very supportive family. My brother is the best competitive skiier . Bullied in school-a kid oz a [employer] with a sharpie on his wrist. 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 No substance use, non smoker Trauma History: Medical trauma Bullied in school Coding Level of Care Code Est Pt Level 3 (34757) Diagnoses Generalized anxiety disorder F41.1
--- OUTSIDE RECORDS SUMMARY | 2024-11-29 16:13 | XMS_ITS | Encounter Summary ---
Author Organization [facility] Address [facility] [email or web address] [facility] [address] [place] [address] Phone Care Team Providers Care Electrician Locomotive Name Role Phone Jaziel Johnston DO Primary Care Provider Jaziel Johnston DO Unavailable [phone] Sonja Marquez RN Unavailable Roxana Rose RESEARCH ADMINISTRATOR Unavailable [phone] Danica Vences DO Unavailable [phone] Encounter Details Date Type Department Care Team (Late st Contact Info) Description 06/26/2024 Procedure Pass [facility] Rad[facility] [address] [place] [address] Social History Tobacco Use Types Packs/Day Years [...] on filedocumented in this encounter Care Teams Electrician Locomotive Relationship Specialty Start Date End Date Jaziel Johnston DO [address] [place] [address] PCP - General Internal Medicine 09/20/20 Jaziel Johnston DO [address] [place] [address] 09/20/20 Sonja Marquez RN [address] [place] [address] [email or web address] Registered Nurse 09/19/14 Roxana Rose CNP [address] [place] [phone] [email or web address] Nurse Practitioner 09/19/14 Danica Vences DO [address] [place] [address] Garland Machine Operator Internal Medicine 07/21/21 documented as of this encounter Additional Source Comments The information contained in this document represents components of the legal health record. It is not the complete legal health record.[facility]
--- OUTSIDE RECORDS SUMMARY | 2024-11-29 16:13 | XMS_ITS | Clinical Summary ---
Author Organization [facility] Address [address] [place] [address] Phone Care Team Providers Care Marketing Editor Name Role Phone Jaziel Johnston DO Primary Care Provider Jaziel Johnston DO Unavailable Sonja Marquez RN Unavailable [phone] Roxana Rose KEEL PRESS OPERATOR Unavailable [phone] Danica Vences DO Unavailable [phone] Allergies No known active allergies Medications levothyroxine [...] 30 or greater 07/10 COVID-19 04/15/2021 S/P SENIOR LEAD PROJECT MANAGER shunt 02/15/1999 Overview (07/10/2021): Non programmable CVA (cerebral vascular accident) 02/15/1993 Overview (07/10/2021): basal ganglia post op 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 Overview (07/10/2021): multiple surgeries; cranioplasty, shunts Hypothyroid 02/16/1992 Encounters Date Type Department Care Team Description 10/13/2024 Orders Only Pediatric Oncology, [facility] [address] [place] [address] [address] [place] [address] Hui Gomez MD, MPH Neuroblastoma (Primary Dx); History of radiation therapy 10/06/2024 11:00 AM EDT Anesthesia Event [facility] [address] [place] [address] Kane Shelton MD Ve, Guille Jackson MD, PhD 10/06/2024 7:55 AM EDT - 10/06/2024 11:59 PM EDT Hospital Encounter [facility] [address] [place] [address] Sarbjit Crawford MD Sou, Brian Sun, MD Sperry, Beau Patrick, MD Hayes, Jessica L, maintenance services dispatcher Disposition: Home or Self Care 09/29/2024 11:00 AM EDT Pre-Admission Testing [facility] [address] [facility] 2nd [place] [address] Unknown, Alonzo, 06/26/2024 Procedure Pass [facility] [address] [place] [address] from Last 3 Months Social History Tobacco [...] not difficult to intubate. Procedure performed by: fellow/resident/CAN PATCHER Anesthesiologist: Kane Shelton MD Fellow/Resident/CAN PATCHER: Khadar Choi MD Airway procedure initiated at:10/06/2024 [...] no Complications observed? no Kane Shelton MD [place] ANESTHESIA Final Result from Last 3 Months Insurance [employer] Advance Directives For more information, please contact: [phone] (9AM - 5PM [facility], Wednesday-Wednesday) Documents on File Type Date Recorded Patient Director Building Expl anation Legal Guardianship 07/17/2021 Guardians hip Care Teams Marketing Editor Relationship Specialty Start Date End Date Jaziel Johnston DO [address] [place], [place] [address] [address] PCP - General Internal Medicine 09/20/20 Jaziel Johnston DO [address] [place] [address] [place] [address] 09/20/20 Sonja Marquez, RN [address] [place] [address] [email or web address] Registered Nurse 09/19/14 Roxana Rose CNP [address] [place] [address] [address] [email or web address] Nurse Practitioner 09/19/14 Danica Vences DO [address] [place] [address] Candlemaker Internal Medicine 07/21/21 Additional Source Comments The information contained in this document represents components of the legal health record. It is not the complete legal health record.[facility]
--- OUTSIDE RECORDS SUMMARY | 2024-11-29 16:13 | XMS_ITS | Encounter Summary ---
Author Organization [facility] Address [address] [place] [address] Phone Care Team Providers Care New Account Interviewer Name Role Phone Jaziel Johnston DO Primary Care Provider Jaziel Johnston DO Unavailable [phone] Omsan Alvarez MD, PhD Unavailable Verito Sonja Hay RN Unavailable [phone] Roxana Rose BUSINESS INTELLIGENCE DIRECTOR Unavailable Danica Vences DO Unavailable [phone] Encounter Details Date Type Department Care Team (Late st Contact Info) Description 05/13/2021 Procedure Pass [facility] [address] [place] [address] 25[address] Social History Tobacco Use Types Packs/Day Years [...] on filedocumented in this encounter Care Teams New Account Interviewer Relationship Specialty Start Date End Date Jaziel Johnston DO [address] [place] [address] PCP - General Internal Medicine 09/20/20 Jaziel Johnston DO [address] [place] [address] 09/20/20 Osman Alvarez MD, PhD [address] [place] [address] Primary Oncologist Pediatrics 09/19/14 3 Sonja Marquez, MEGHAN [address] [place] [address] [email or web address] Registered Nurse 09/19/14 Roxana Rose CNP [address] [place] [phone] [email or web address] Nurse Practitioner 09/19/14 Danica Vences DO [address] [place] [address] Van Cdl Driver Internal Medicine 07/21/21 documented as of this encounter Additional Source Comments The information contained in this document represents components of the legal health record. It is not the complete legal health record.[facility]
--- OUTSIDE RECORDS SUMMARY | 2024-11-29 16:13 | XMS_ITS | Clinical Summary ---
Author Organization [facility] Address [address] [place] [address] Phone Care Team Providers Care Wheelabrator Operator Name Role Phone Jaziel Johnston Primary Care Provider [phone] Jaziel Johnston Unavailable [phone] Jaziel Johnston Unavailable [phone] Jaziel Johnston Unavailable [phone] Jaziel Johnston Unavailable [phone] Sarbjit Crawford MD Unavailable [phone] Roxana Rose CNP Unavailable [phone] Allergies No known active allergies Medications aspirin 81 mg chewable tablet Dose: 81 mg, Dose Amount: 1 tab, PO, daily, Entered: 02/18/20 14:34:00 EST 02/18/2020 Active midazolam (Nayzilam) 5 mg/spray (0.1 mL) spray,non-aeros ol Dose: 10 mg, Nasal, 1time, Special Instructions: 5 mg (one spray) in each nostril nostril for seizure longer than 5 minutes, Dispense Quantity: 2 EA, Refills: 0, Entered: 02/18/20 14:36[facility] Active amLODIPine 5 mg tablet Take 5 mg by mouth 1 time each day. Active cholecalciferol 25 mcg (1000 UT) tablet Take 1,000 Units by mouth 1 time each day. Active citalopram 10 mg tablet Take 20 mg by mouth 1 time each day. Active lisinopril 5 mg tablet Take 10 mg by mouth 1 time each day. 06/20/2024 Active testosterone enanthate (Xyosted) 50 mg/0.5 mL auto-injector Inject 50 mg under the skin every 7 days. 06/06/2024 Active levothyroxine 88 mcg tablet Take 88 mcg by mouth 1 time each day. 06/03/2024 Active lamoTRIgine 25 mg chewable tablet Take 25 mg by mouth 2 times a day. 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 Resolved Problems Problem Noted Date Diagnosed Date Resolved Date Seizure 07/10/2021 10/11/2024 Overview (10/11/2024): Resolved - off seizure medications since ~2019 CVA (cerebral vascular accident) 02/15/1993 10/11/2024 Overview (10/11/2024): basal ganglia post op Encounters Date Type Department Care Team Description 10/12/2024 3:00 PM EDT Telemedicine [facility] Genetics and Prevention, [facility] [place] [address] [place], [place] [address] [place] [address] Rachel Mason MD Echmalian, Corinne, CGC Neuroblastoma of central nervous system (HCC) 10/12/2024 2:00 PM EDT Telemedicine [facility] Neuro Oncology, [facility] [place] [address] [facility], [place] [address] [place] [address] Estelle Wellington MD Lewis, Courtney T, CNP Neuroblastoma of central nervous system (HCC) (Primary Dx); Hemiparesis affecting left side as late effect of cerebrovascular accident (CMS/HCC) (HCC); Hypogonadism in male; S/P DOOR PULLER shunt; Hypothyroidism, unspecified type 10/12/2024 2:00 PM EDT Telemedicine [facility] Neuro Oncology, [facility] [address] [place] [place] [address] Hui Gomez MD Neuroblastoma of central nervous system (HCC) (Primary Dx); Hemiparesis affecting left side as late effect of cerebrovascular accident (CMS/HCC) (HCC); Hypogonadism in male; Acquired hypothyroidism; S/P DOOR PULLER shunt 10/06/2024 - 10/06/2024 11:59 PM EDT Hospital Encounter [facility] [address] [phone] Discharge Disposition: Home from Last 3 Months [...] Health Maintenance Due Date Last Done Comments Chlamydia and Gonorrhea Screening 1991 HIV Screening 1991 MMR Vaccines (1 of 1 - Standard series) 10/23/1992 DTaP/Tdap/Td Vaccines (1 - Tdap) 10/23/1998 Varicella Vaccines (1 of 2 - 13+ 2-dose series) 10/23/2004 Hepatitis C Screening 10/23/2009 Hepatitis B Vaccines (1 of 3 - 19+ 3-dose series) 10/23/2010 Influenza Vaccine (#1) 2024 1, 11/11/2018 HIB Vaccines Aged Out No longer [...] On PACS (10/06/2024 12:28 PM EDT) Narrative [facility] PACS VR - 10/09/2024 12:28 [...] No-Case IMG MRI PROCEDURES F inal Result [facility] PACS VR from Last 3 Months Insurance [employer] Care Teams Wheelabrator Operator Relationship Specialty Start Date End Date Jaziel Johnston [address] [place] [address] PCP - General 06/22/23 Jaziel Johnston [address] [place] [address] 890[address] PCP - Insurance PCP 01/24/20 Jaziel Johnston [address] [place] [address] 84149 PCP - DFCIPCP 07/17/21 Jaziel Johnston [address] [place] [address]120 PCP - Clinical PCP 04/23/11 Jaziel Johnston [address] [place] [address] 53688 PCP - Insurance Identified PCP 10/17/23 Sarbjit Crawford MD [address] [place] [address] 14296 Oncologist Pediatric Hematology and Oncology 11/10/23 Roxana Rose CNP [address] [place] [address] [place] [address] Nurse Practitioner Pediatric Hematology and Oncology 11/10/23
--- OUTSIDE RECORDS SUMMARY | 2024-11-29 16:13 | XMS_ITS | Encounter Summary ---
Author Organization [facility] Address [address] [place] [address] Phone Care Team Providers Care Orange Peel Operator Name Role Phone Jazeil Johnston DO Primary Care Provider Jaziel Johnston DO Unavailable Osman Alvarez MD, PhD Unavailable Verito Sonja Hay RN Unavailable [phone] Roxana Rose INSURANCE CASE MANAGER Unavailable [phone] Danica Vences DO Unavailable [phone] Encounter Details Date Type Department Care Team (Late st Contact Info) Description 05/13/2021 Procedure Pass [facility] Periop [address] [place] [address] Social History Tobacco Use Types Packs/Day Years [...] on filedocumented in this encounter Care Teams Orange Peel Operator Relationship Specialty Start Date End Date Jaziel Johnston DO [address] [place] [address] PCP - General Internal Medicine 09/20/20 Jaziel Johnston DO [address] [place] [address] 09/20/20 Osman Alvarez MD, PhD [address] [place] [address]87[address] Primary Oncologist Pediatrics 09/19/14 3 Sonja Marquez, MEGHAN [address] [place] [address] [email or web address] Registered Nurse 09/19/14 Roxana Rose CNP [address] [place] [phone] [email or web address] Nurse Practitioner 09/19/14 Danica Vences DO [address] [place] [address] Wood Shop Teacher Internal Medicine 07/21/21 documented as of this encounter Additional Source Comments The information contained in this document represents components of the legal health record. It is not the complete legal health record.[facility]
--- OUTSIDE RECORDS SUMMARY | 2024-11-29 16:13 | XMS_ITS | Encounter Summary ---
Author Organization [facility] Address [address] [place] [address] Phone Care Team Providers Care Email Operations Manager Name Role Phone Jaziel Johnston DO Primary Care Provider Jaziel Johnston DO Unavailable Osman Alvarez MD, PhD Unavailable Verito Sonja Hay RN Unavailable [phone] Roxana Rose VAT OPERATOR Unavailable [phone] Danica Vences DO Unavailable [phone] Encounter Details Date Type Department Care Team (Late st Contact Info) Description 05/13/2021 Procedure Pass [facility] Periop [address] [place] [address] Social History Tobacco Use Types Packs/Day Years [...] on filedocumented in this encounter Care Teams Email Operations Manager Relationship Specialty Start Date End Date Jaziel Johnston DO [address] [place] [address] PCP - General Internal Medicine 09/20/20 Jaziel Johnston DO [address] [place] [address] 09/20/20 Osman Alvarez MD, PhD [address] [place] [address] Primary Oncologist Pediatrics 09/19/14 3 Sonja Marquez, MEGHAN [address] [place] [address] [email or web address] Registered Nurse 09/19/14 Roxana Rose CNP [address] [place] [address] [phone] [email or web address] Nurse Practitioner 09/19/14 Danica Vences DO [address] [place] [address] Pathological Technician Internal Medicine 07/21/21 documented as of this encounter Additional Source Comments The information contained in this document represents components of the legal health record. It is not the complete legal health record.[facility]
--- OUTSIDE RECORDS SUMMARY | 2024-11-29 16:13 | XMS_ITS | Encounter Summary ---
Author Organization [facility] Address [address] [place] [address] Phone Care Team Providers Care Child Development Director Name Role Phone Jaziel Johnston DO Primary Care Provider [phone] Jaziel Johnston DO Unavailable Osman Alvarez MD, PhD Unavailable Verito Sonja Hay RN Unavailable [phone] Roxana Rose MECHANICAL SHOVEL OPERATOR Unavailable [phone] Danica Vences DO Unavailable Encounter Details Date Type Department Care Team (Late st Contact Info) Description 05/13/2021 Procedure Pass [facility] Periop [address] [place] [address] Social History Tobacco Use Types Packs/Day Years [...] on filedocumented in this encounter Care Teams Child Development Director Relationship Specialty Start Date End Date Jaziel Johnston DO [address] [place] [address] 82069 PCP - General Internal Medicine 09/20/20 Jaziel Johnston DO [address] [place] [address] 8[address] 09/20/20 Osman Alvarez MD, PhD [address] [place] [address] Primary Oncologist Pediatrics 09/19/14 3 Sonja Marquez, MEGHAN [address] [place] [address] [email or web address] Registered Nurse 09/19/14 Roxana Rose CNP [address] [place] [address] [phone] [email or web address] Nurse Practitioner 09/19/14 Danica Vences DO [address] [place] [address]38 Hospitality Recruiter Internal Medicine 07/21/21 documented as of this encounter Additional Source Comments The information contained in this document represents components of the legal health record. It is not the complete legal health record.[facility]
== END 2024-11-29 13:31 | disposition home or self-care (01) ==
LOC: HO.HOP 12:52
PROVIDERS: PCP Internal Medicine; Visit Provider Clinical Nurse Specialist Psychiatric/Mental Health, Adult
DX: F41.1 Generalized anxiety disorder (principal)
CPT/HCPCS: 99213

== ENCOUNTER → 2024-11-29 12:52 | Outpatient (BNVA) | payer OTHER, SELFPAY | PROVIDERS: PCP Internal Medicine; Visit Provider Clinical Nurse Specialist Psychiatric/Mental Health, Adult | DX: F41.1 Generalized anxiety disorder (principal) | CPT/HCPCS: 99212 ==

== ENCOUNTER 2024-12-27 13:03 | Outpatient (AMB) | payer OTHER, SELFPAY ==
--- OUTSIDE RECORDS SUMMARY | 2024-12-27 15:46 | XMS_ITS | Encounter Summary ---
Author Organization [facility] Address [address] [place] [address] Phone Care Team Providers Care Sample Coordinator Name Role Phone Jaziel Johnston DO Primary Care Provider Jaziel Johnston DO Unavailable Osman Alvarez MD, PhD Unavailable Verito Sonja Hay RN Unavailable [phone] Roxana Rose COMPRESSOR OPERATOR Unavailable Danica Vences DO Unavailable Encounter Details Date Type Department Care Team (Late st Contact Info) Description 05/13/2021 Procedure Pass [facility] Periop [address] [place] [address] Social History Tobacco Use Types Packs/Day Years [...] on filedocumented in this encounter Care Teams Sample Coordinator Relationship Specialty Start Date End Date Jaziel Johnston DO [address] [place] [address] 12554 PCP - General Internal Medicine 09/20/20 Jaziel Johnston DO [address] [place] [address] 937[address] 09/20/20 Osman Alvarez MD, PhD [address] [place] [address]3857 Primary Oncologist Pediatrics 09/19/14 3 Sonja Marquez, MEGHAN [address] [place] [address] [email or web address] Registered Nurse 09/19/14 Roxana Rose CNP [address] [place] [address] [phone] [email or web address] Nurse Practitioner 09/19/14 Danica Vences DO [address] [place] [address] Siding Mechanic Internal Medicine 07/21/21 documented as of this encounter Additional Source Comments The information contained in this document represents components of the legal health record. It is not the complete legal health record.[facility]
--- OUTSIDE RECORDS SUMMARY | 2024-12-27 15:46 | XMS_ITS | Encounter Summary ---
Author Organization [facility] Address [address] [place] [address] Phone Care Team Providers Care Hunter Name Role Phone Jaziel Johnston DO Primary Care Provider [phone] Jaziel Johnston DO Unavailable [phone] Osman Alvarez MD, PhD Unavailable Verito Sonja Hay RN Unavailable [phone] Roxana Rose JOB CHECKER Unavailable Danica Vences DO Unavailable [phone] Encounter Details Date Type Department Care Team (Late st Contact Info) Description 05/13/2021 Procedure Pass [facility] Periop [address] [place] [address] Social History Tobacco Use Types Packs/Day Years [...] on filedocumented in this encounter Care Teams Hunter Relationship Specialty Start Date End Date Jaziel Johnston DO [address] [place] [address] PCP - General Internal Medicine 09/20/20 Jaziel Johnston DO [address] [place] [address] 09/20/20 Osman Alvarez MD, PhD [address] [place] [address] 97363 Primary Oncologist Pediatrics 09/19/14 3 Sonja Marquez, MEGHAN [address] [place] [address] [email or web address] Registered Nurse 09/19/14 Roxana Rose CNP [address] [place] [address] [phone] [email or web address] Nurse Practitioner 09/19/14 Danica Vences DO [address] [place] [address] Store Operations Associate Internal Medicine 07/21/21 documented as of this encounter Additional Source Comments The information contained in this document represents components of the legal health record. It is not the complete legal health record.[facility]
--- OUTSIDE RECORDS SUMMARY | 2024-12-27 15:46 | XMS_ITS | Encounter Summary ---
Author Organization [facility] Address [facility] [address] [place] [address] Phone Care Team Providers Care Document Control Manager Name Role Phone Jaziel Johnston DO Primary Care Provider [phone] Jaziel Johnston DO Unavailable [phone] Sonja Marquez RN Unavailable [phone] Roxana Rose LEGAL BILLING CLERK Unavailable Danica Vences DO Unavailable [phone] Encounter Details Date Type Department Care Team (Late st Contact Info) Description 06/26/2024 Procedure Pass [facility] [address] [place] [address] Social History Tobacco Use Types Packs/Day Years [...] on filedocumented in this encounter Care Teams Document Control Manager Relationship Specialty Start Date End Date Jaziel Johnston DO [address] [place] [address] PCP - General Internal Medicine 09/20/20 Jaziel Johnston DO [address] [place] [address] 09/20/20 Sonja Marquez RN [address] [place] [address] [email or web address] Registered Nurse 09/19/14 Roxana Rose CNP [address] [place] [phone] [email or web address] Nurse Practitioner 09/19/14 Danica Vences DO [address] [place] [address] Oncology Technician Internal Medicine 07/21/21 documented as of this encounter Additional Source Comments The information contained in this document represents components of the legal health record. It is not the complete legal health record.[facility]
--- OUTSIDE RECORDS SUMMARY | 2024-12-27 15:46 | XMS_ITS | Encounter Summary ---
Author Organization [facility] Address [address] [place] [address] Phone Care Team Providers Care Stable Manager Name Role Phone Jaziel Johnston DO Primary Care Provider Jaziel Johnston DO Unavailable [phone] Osman Alvarez MD, PhD Unavailable Verito Sonja Hay RN Unavailable [phone] Roxana Rose PROCESS DEVELOPMENT ENGINEER Unavailable Danica Vences DO Unavailable [phone] Encounter Details Date Type Department Care Team (Late st Contact Info) Description 05/13/2021 Procedure Pass [facility] [address] [place] [address] Social History Tobacco Use Types Packs/Day Years [...] on filedocumented in this encounter Care Teams Stable Manager Relationship Specialty Start Date End Date Jaziel Johnston DO [address] [place] [address] 15943 PCP - General Internal Medicine 09/20/20 Jaziel Johnston DO [address] [place] [address] 11921 09/20/20 Osman Alvarez MD, PhD [address] [place] [address] Primary Oncologist Pediatrics 09/19/14 3 Sonja Marquez, MEGHAN [address] [place] [address] [email or web address] Registered Nurse 09/19/14 Roxana Rose CNP [address] [place] [address] [phone] [email or web address] Nurse Practitioner 09/19/14 Danica Vences DO [address] [place] [address] Driving Teacher Internal Medicine 07/21/21 documented as of this encounter Additional Source Comments The information contained in this document represents components of the legal health record. It is not the complete legal health record.[facility]
--- OUTSIDE RECORDS SUMMARY | 2024-12-27 15:46 | XMS_ITS | Encounter Summary ---
Author Organization [facility] Address [address] [place] [address] Phone Care Team Providers Care Seam Rubbing Machine Operator Name Role Phone Jaziel Johnston DO Primary Care Provider Jaziel Johnston DO Unavailable Osman Alvarez MD, PhD Unavailable Verito Sonja Hay RN Unavailable [phone] Roxana Rose GRIEVANCE AND APPEALS COORDINATOR Unavailable Danica Vences DO Unavailable [phone] Encounter Details Date Type Department Care Team (Late st Contact Info) Description 05/13/2021 Procedure Pass [facility] Periop [address] [place] [address] Social History Tobacco Use Types Packs/Day Years [...] on filedocumented in this encounter Care Teams Seam Rubbing Machine Operator Relationship Specialty Start Date End Date Jaziel Johnston DO [address] [place] [address] 36644 PCP - General Internal Medicine 09/20/20 Jaziel Johnston DO [address] [place] [address] 77559 09/20/20 Osman Alvarez MD, PhD [address] [place] [address] 13473 Primary Oncologist Pediatrics 09/19/14 3 Sonja Marquez, MEGHAN [address] [place] [address] 23860 [email or web address] Nurse 09/19/14 Roxana Rose CNP [address] [place] [address] [phone] [email or web address] Nurse Practitioner 09/19/14 Danica Vences DO [address] [place] [address] 77588 Electric Motor Analyst Internal Medicine 07/21/21 documented as of this encounter Additional Source Comments The information contained in this document represents components of the legal health record. It is not the complete legal health record.[facility]
--- OUTSIDE RECORDS SUMMARY | 2024-12-27 15:46 | XMS_ITS | Clinical Summary ---
Author Organization [facility] Address [address] [place] [address] 110[address] Phone Care Team Providers Care Home Appliance Technician Name Role Phone Jaziel Johnston DO Primary Care Provider Jaziel Johnston DO Unavailable Sonja Marquez RN Unavailable [phone] Roxana Rose IRON WORKER APPRENTICE Unavailable Danica Vences DO Unavailable [phone] Allergies No known active allergies Medications levothyroxine [...] 30 or greater 07/10 COVID-19 04/15/2021 S/P PHARMACOLOGY TEACHER shunt 02/15/1999 Overview (07/10/2021): Non programmable CVA (cerebral vascular accident) 02/15/1993 Overview (07/10/2021): basal ganglia post op 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 Overview (07/10/2021): multiple surgeries; cranioplasty, shunts Hypothyroid 02/16/1992 Encounters Date Type Department Care Team Description 10/13/2024 Orders Only Pediatric Oncology, [facility] [address] [place] [address] 3[address] [place] [address] Hui Gomez MD, MPH Neuroblastoma (Primary Dx); History of radiation therapy 10/06/2024 11:00 AM EDT Anesthesia Event [facility] [address] [place] [address] Kane Shelton MD Ve, Guille Jackson MD, PhD 10/06/2024 7:55 AM EDT - 10/06/2024 11:59 PM EDT Hospital Encounter [facility] [address] [place] [address] Sarbjit Crawford MD Sou, Brian Sun, MD Sperry, Beau Patrick, MD Hayes, Jessica L, catering sous chef Disposition: Home or Self Care 09/29/2024 11:00 AM EDT Pre-Admission Testing [facility] [address] [facility] 2nd [place] [address] Unknown, Alonzo, 06/26/2024 Procedure Pass [facility] [address] [place] [address] 287[address] from Last 3 Months Social History Tobacco [...] patient's age to complete this topic IPV VACCINES Aged Out No longer eligi ble [...] clinician's provided indication for this examination in [facility]:Brain mass or lesion TECHNIQUE: Multi-sequence, multi-planar MRI [...] Stable appearance of the shunt and ventricles. us Sarbjit Crawford MD IMG MR HEAD/NECK Final Result * ANES ETT DOUBLE LUMEN - AIRWAY LDA (10/06/2024 11:20 AM EDT) Kane Kincaid MD - 10/06/2024 11:20 AM EDT Kane Shelton MD 10/06/2024 11:21 AM Airway Placement Procedure Note: Patient was not difficult to intubate. Procedure performed by: fellow/resident/INCIDENT RESPONSE CONSULTANT Anesthesiologist: Kane Shelton MD Fellow/Resident/INCIDENT RESPONSE CONSULTANT: Khadar Choi MD Airway procedure initiated at:10/06/2024 [...] no Complications observed? no Kane Shelton MD [place] ANESTHESIA Final Result from Last 3 Months Insurance [facility] Advance Directives For more information, please contact: [phone] (9AM - 5PM [facility], Wednesday-Wednesday) Documents on File Type Date Recorded Patient Surg Tech Expl anation Legal Guardianship 07/17/2021 Guardians hip Care Teams Home Appliance Technician Relationship Specialty Start Date End Date Jaziel Johnston DO [address] [place] [address] 02198 PCP - General Internal Medicine 09/20/20 Jaziel Johnston DO [address] [place] [address] 15215 09/20/20 Sonja Marquez RN [address] [place] [address] [email or web address] Registered Nurse 09/19/14 Roxana Rose CNP [address] [phone] [email or web address] Nurse Practitioner 09/19/14 Danica Vences DO [address] [place] [address] 45787 Hatchery Employee Internal Medicine 07/21/21 Additional Source Comments The information contained in this document represents components of the legal health record. It is not the complete legal health record.[facility]
--- OUTSIDE RECORDS SUMMARY | 2024-12-27 15:46 | XMS_ITS | Clinical Summary ---
Author Organization [facility] Address [address] [place] [address] Phone Care Team Providers Care Photographic Hand Developer Name Role Phone Jaziel Johnston Primary Care Provider [phone] Jaziel Johnston Unavailable [phone] Jaziel Johnston Unavailable [phone] Jaziel Johnston Unavailable [phone] Jaziel Johnston Unavailable [phone] Sarbjit Crawford MD Unavailable [phone] Roxana Rose CNP Unavailable [phone] Allergies No known active allergies Medications aspirin [...] brain radiation Hypogonadism in male 07/10/2021 S/P SHOW HOST shunt 02/15/1999 Overview (10/11/2024): Non programmable Hypothyroid 02/16/1992 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 Resolved Problems Problem Noted Date Diagnosed Date Resolved Date Seizure 07/10/2021 10/11/2024 Overview (10/11/2024): Resolved - off seizure medications since ~2019 CVA (cerebral vascular accident) 02/15/1993 10/11/2024 Overview (10/11/2024): basal ganglia post op Encounters Date Type Department Care Team Description 10/12/2024 3:00 PM EDT Telemedicine [facility] Genetics and Prevention, [facility] [address] [place], [place] [address] [place] [address] Rachel Mason MD Echmalian, Corinne, CGC Neuroblastoma of central nervous system (HCC) 10/12/2024 2:00 PM EDT Telemedicine [facility] Neuro Oncology, [facility] [address] [facility], [place] [address] [place] [address] Estelle Wellington MD Lewis, Courtney T, CNP Neuroblastoma of central nervous system (HCC) (Primary Dx); Hemiparesis affecting left side as late effect of cerebrovascular accident (CMS/HCC) (HCC); Hypogonadism in male; S/P SHOW HOST shunt; Hypothyroidism, unspecified type 10/12/2024 2:00 PM EDT Telemedicine [facility] Neuro Oncology, [facility] [address] [place], [place] [address] [place] [address] Hui Gomez MD Neuroblastoma of central nervous system (HCC) (Primary Dx); Hemiparesis affecting left side as late effect of cerebrovascular accident (CMS/HCC) (HCC); Hypogonadism in male; Acquired hypothyroidism; S/P SHOW HOST shunt 10/06/2024 - 10/06/2024 11:59 PM EDT Hospital Encounter [facility] [address] [phone] Discharge Disposition: Home from Last 3 Months [...] (10/06/2024 12:28 PM EDT) Narrative [facility] PACS [facility] - 10/09/2024 12:28 [...] MRI PROCEDURES F inal Result [facility] from Last 3 Months Insurance [employer] Care Teams Photographic Hand Developer Relationship Specialty Start Date End Date Jaziel Johnston [address] [place] [address] [phone] PCP - General 06/22/23 Jaziel Johnston [address] [place] [address] 67306 PCP - Insurance PCP 01/24/20 Jaziel Johnston [address] [place] [address] 56072 PCP - DFCIPCP 07/17/21 Jaziel Johnston [address] [place] [address] 89526 PCP - Clinical PCP 04/23/11 Jaziel Johnston [address] [place] [address] 58656 PCP - Insurance Identified PCP 10/17/23 Sarbjit Crawford MD [address] [place] [address] [phone] Oncologist Pediatric Hematology and Oncology 11/10/23 Roxana Rose CNP [address] [place] [address] [address] [place] [address] Nurse Practitioner Pediatric Hematology and Oncology 11/10/23
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
== END 2024-12-27 13:31 | disposition home or self-care (01) ==
LOC: HO.HOP 13:03
PROVIDERS: PCP Internal Medicine; Visit Provider Clinical Nurse Specialist Psychiatric/Mental Health, Adult
DX: F41.1 Generalized anxiety disorder (principal)
CPT/HCPCS: 99213

== ENCOUNTER → 2024-12-27 13:03 | Outpatient (BNVA) | payer OTHER, SELFPAY | PROVIDERS: PCP Internal Medicine; Visit Provider Clinical Nurse Specialist Psychiatric/Mental Health, Adult | DX: F41.1 Generalized anxiety disorder (principal) | CPT/HCPCS: 99212 ==

== ENCOUNTER 2025-01-25 08:09 | Outpatient (REF) | payer OTHER, SELFPAY ==
[2025-01-25 08:35] LABS: Hematocrit 47.1 % (42.0-52.0); Hemoglobin 15.9 g/dl (14.0-18.0)
== END 2025-01-25 08:10 ==
LOC: HO.LAB 08:09
PROVIDERS: PCP Internal Medicine; Visit Provider Internal Medicine Endocrinology, Diabetes & Metabolism
DX: E23.0 Hypopituitarism (principal)
CPT/HCPCS: 36415; 84402; 84403; 85014; 85018

== ENCOUNTER 2025-02-05 07:59 | Outpatient (REF) | payer OTHER, SELFPAY ==
--- OUTSIDE RECORDS SUMMARY | 2025-02-05 08:03 | XMS_ITS | Encounter Summary ---
Author Organization [facility] Address [facility] [address] [place] [address] Phone Care Team Providers Care Shuttle Repairer Name Role Phone Jaziel Johnston DO Primary Care Provider Jaziel Johnston DO Unavailable Sonja Marquez RN Unavailable [phone] Roxana Rose ASSISTANT CORPORATE SECRETARY Unavailable Danica Vences DO Unavailable [phone] Encounter Details Date Type Department Care Team (Late st Contact Info) Description 06/26/2024 Procedure Pass [facility] Radiology [address] [place] [address] Social History Tobacco Use Types Packs/Day Years [...] on filedocumented in this encounter Care Teams Shuttle Repairer Relationship Specialty Start Date End Date Jaziel Johnston DO [address] [place] [address] 02990 PCP - General Internal Medicine 09/20/20 Jaziel Johnston DO [address] [place] [address] 09/20/20 Sonja Marquez RN [address] [place] [address] [email or web address] Registered Nurse 09/19/14 Roxana Rose CNP [address] [place] [phone] [email or web address] Nurse Practitioner 09/19/14 Danica Vences DO [address] [place] [address] 13427 Commissary Worker Internal Medicine 07/21/21 documented as of this encounter Additional Source Comments The information contained in this document represents components of the legal health record. It is not the complete legal health record.[facility]
--- OUTSIDE RECORDS SUMMARY | 2025-02-05 08:03 | XMS_ITS | Encounter Summary ---
Author Organization [facility] Address [address] [place] [address] Phone Care Team Providers Care Patient Relations Representative Name Role Phone Jaziel Johnston DO Primary Care Provider [phone] Jaziel Johnston DO Unavailable Osman Alvarez MD, PhD Unavailable Verito Sonja Hay RN Unavailable [phone] Roxana Rose WOOD GRAINER Unavailable Danica Vences DO Unavailable [phone] Encounter Details Date Type Department Care Team (Late st Contact Info) Description 05/13/2021 Procedure Pass [facility] Periop [address] [place] [address] Social History Tobacco Use Types Packs/Day Years [...] on filedocumented in this encounter Care Teams Patient Relations Representative Relationship Specialty Start Date End Date Jaziel Johnston DO [address] [place] [address]32 PCP - General Internal Medicine 09/20/20 Jaziel Johnston DO [address] [place] [address] 747[address] 09/20/20 Osman Alvarez MD, PhD [address] [place] [address] 33029 Primary Oncologist Pediatrics 09/19/14 3 Sonja Marquez, RN [address] [place] [address] [email or web address] Registered Nurse 09/19/14 Roxana Rose CNP [address] [place] [phone] [email or web address] Nurse Practitioner 09/19/14 Danica Vences DO [address] [place] [address] 27022 Creative Coordinator Internal Medicine 07/21/21 documented as of this encounter Additional Source Comments The information contained in this document represents components of the legal health record. It is not the complete legal health record.[facility]
--- OUTSIDE RECORDS SUMMARY | 2025-02-05 08:03 | XMS_ITS | Encounter Summary ---
Author Organization [facility] Address [address] [place] [address] Phone Care Team Providers Care Returned Goods Sorter Name Role Phone Jaziel Johnston DO Primary Care Provider Jaziel Johnston DO Unavailable [phone] Osman Alvarez MD, PhD Unavailable Verito Sonja Hay RN Unavailable [phone] Roxana Rose PROFESSOR OF MARKETING Unavailable [phone] Danica Vences DO Unavailable [phone] Encounter Details Date Type Department Care Team (Late st Contact Info) Description 05/13/2021 Procedure Pass [facility] Periop [address] [place] [address] Social History Tobacco Use Types Packs/Day Years [...] on filedocumented in this encounter Care Teams Returned Goods Sorter Relationship Specialty Start Date End Date Jaziel Johnston DO [address] [place] [address] 76107 PCP - General Internal Medicine 09/20/20 Jaziel Johnston DO [address] [place] [address] 03438 09/20/20 Osman Alvarez MD, PhD [address] [place] [address] 03544 Primary Oncologist Pediatrics 09/19/14 3 Sonja Marquez, RN [address] [place] [address] 287[address] [email or web address] Registered Nurse 09/19/14 Roxana Rose CNP [address] [place] [phone] [email or web address] Nurse Practitioner 09/19/14 Danica Vences DO [address] [place] [address] 43565 Load Manager Internal Medicine 07/21/21 documented as of this encounter Additional Source Comments The information contained in this document represents components of the legal health record. It is not the complete legal health record.[facility]
--- OUTSIDE RECORDS SUMMARY | 2025-02-05 08:03 | XMS_ITS | Clinical Summary ---
Author Organization [facility] Address [address] [place] [address] Phone Care Team Providers Care Contract Clerk Automobile Name Role Phone Jaziel Johnston DO Primary Care Provider [phone] Jaziel Johnston DO Unavailable [phone] Sojna Marquez RN Unavailable [phone] Roxana Rose DISTRICT SERVICE MANAGER Unavailable [phone] Danica Vences DO Unavailable [phone] Allergies No known active allergies Medications levothyroxine [...] 30 or greater 07/10 COVID-19 04/15/2021 S/P CARDIAC REHABILITATION PROGRAM DIRECTOR shunt 02/15/1999 Overview (07/10/2021): Non programmable CVA (cerebral vascular accident) 02/15/1993 Overview (07/10/2021): basal ganglia post op 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 Overview (07/10/2021): multiple surgeries; cranioplasty, shunts Hypothyroid 02/16/1992 Social History Tobacco Use Types Packs/Day Years [...] this topic Medical Devices Not on file Insurance [facility] Advance Directives For more information, please contact: [phone] (9AM - 5PM [facility], Wednesday-Wednesday) Documents on File Type Date Recorded Patient Explosive Ordnance Technician Expl anation Legal Guardianship 07/17/2021 Guardians hip Care Teams Contract Clerk Automobile Relationship Specialty Start Date End Date Jaziel Johnston DO [address] [place] [address] 09494 PCP - General Internal Medicine 09/20/20 Jaziel Johnston DO [address] [place] [address] 74[address] 09/20/20 Sonja Marquez RN [address] [place] [address] [email or web address] Nurse 09/19/14 Roxana Rose, SETH [address] [place] [phone] [email or web address] Nurse Practitioner 09/19/14 Danica Vences DO [address] [place] [address] 23345 Recycling Attendant Internal Medicine 07/21/21 Additional Source Comments The information contained in this document represents components of the legal health record. It is not the complete legal health record.[facility]
--- OUTSIDE RECORDS SUMMARY | 2025-02-05 08:03 | XMS_ITS | Clinical Summary ---
Author Organization [facility] Address [address] [place] [address] Phone Care Team Providers Care Paying Teller Name Role Phone Jaziel Johnston Primary Care Provider [phone] Jaziel Johnston Unavailable [phone] Jaziel Johnston Unavailable [phone] Jaziel Johnston Unavailable [phone] Jaziel Johnston Unavailable [phone] Sarbjit Crawford MD Unavailable [phone] Roxana Rose CNP Unavailable [phone] Allergies No known active allergies Medications aspirin [...] brain radiation Hypogonadism in male 07/10/2021 S/P PHYSICIAN CREDENTIALING SPECIALIST shunt 02/15/1999 Overview (10/11/2024): Non programmable Hypothyroid 02/16/1992 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 Resolved Problems Problem Noted Date Diagnosed Date Resolved Date Seizure 07/10/2021 10/11/2024 Overview (10/11/2024): Resolved - off seizure medications since ~2019 CVA (cerebral vascular accident) 02/15/1993 10/11/2024 Overview (10/11/2024): basal ganglia post op Immunizations Immunization Administration Dates Next Due Influenza, [...] of 3 - 19+ 3-dose series) 10/23/2010 COVID-19 Vaccine (3 - 2024-2 6 season) [...] patient's age to complete this topic Insurance [facility] Care Teams Paying Teller Relationship Specialty Start Date End Date Jaziel Johnston [address] [place] [address] 15451 PCP - General 06/22/23 Jaziel Johnston [address] [place] [address] 49006 PCP - Insurance PCP 01/24/20 Jaziel Johnston [address] [place] [address] 02470 PCP - DFCIPCP 07/17/21 Jaziel Johnston [address] [place] [address] 89612 PCP - Clinical PCP 04/23/11 aJziel Johnston [address] [place] [address] 08865 PCP - Insurance Identified PCP 10/17/23 Sarbjit Crawford MD [address] [place] [address] Oncologist Pediatric Hematology and Oncology 11/10/23 Roxana Rose CNP [address] [facility] [address] [place] [address] Nurse Practitioner Pediatric Hematology and Oncology 11/10/23
--- OUTSIDE RECORDS SUMMARY | 2025-02-05 08:03 | XMS_ITS | Encounter Summary ---
Author Organization [facility] Address [address] [place] [address] Phone Care Team Providers Care Generator Worker Name Role Phone Jaziel Johnston DO Primary Care Provider Jaziel Johnston DO Unavailable [phone] Osman Alvarez MD, PhD Unavailable Verito Sonja Hay RN Unavailable [phone] Roxana Rose LICENSED RETAIL SUPERVISOR Unavailable Danica Vences DO Unavailable [phone] Encounter Details Date Type Department Care Team (Late st Contact Info) Description 05/13/2021 Procedure Pass [facility] Periop [address] [place] [address] Social History Tobacco Use Types Packs/Day Years [...] on filedocumented in this encounter Care Teams Generator Worker Relationship Specialty Start Date End Date Jaziel Johnston DO [address] [place] [address] 37152 PCP - General Internal Medicine 09/20/20 Jaziel Johnston DO [address] [place] [address] 78910 09/20/20 Osman Alvarez MD, PhD [address] [place] [address] 33424 Primary Oncologist Pediatrics 09/19/14 3 Sonja Marquez, RN [address] [place] [address] [email or web address] Registered Nurse 09/19/14 Roxana Rose CNP [address] [place] [address] [phone] [email or web address] Nurse Practitioner 09/19/14 Danica Vences DO [address] [place] [address] 49587 Machine Maintenance Mechanic Internal Medicine 07/21/21 documented as of this encounter Additional Source Comments The information contained in this document represents components of the legal health record. It is not the complete legal health record.[facility]
--- OUTSIDE RECORDS SUMMARY | 2025-02-05 08:03 | XMS_ITS | Encounter Summary ---
Author Organization [facility] Address [address] [place] [address] Phone Care Team Providers Care Fifth Grade Teacher Name Role Phone Jaziel Johnston DO Primary Care Provider Jaziel Johnston DO Unavailable [phone] Osman Alvarez MD, PhD Unavailable Verito Sonja Hay RN Unavailable [phone] Roxana Rose SIGN HANGER Unavailable Danica Vences DO Unavailable [phone] Encounter Details Date Type Department Care Team (Late st Contact Info) Description 05/13/2021 Procedure Pass [facility] [address] [place] [address] Social History Tobacco Use Types Packs/Day Years [...] on filedocumented in this encounter Care Teams Fifth Grade Teacher Relationship Specialty Start Date End Date Jaziel Johnston DO [address] [place] [address] 27355 PCP - General Internal Medicine 09/20/20 Jaziel Johnston DO [address] [place] [address] 42046 09/20/20 Osman Alvarez MD, PhD [address] [place] [address]7592 Primary Oncologist Pediatrics 09/19/14 3 Sonja Marquez, RN [address] [place] [address] [email or web address] Nurse 09/19/14 Roxana Rose CNP [address] [place] [address] [phone] [email or web address] Nurse Practitioner 09/19/14 Danica Vences DO [address] [place] [address] 48277 Mold Yarn Supervisor Internal Medicine 07/21/21 documented as of this encounter Additional Source Comments The information contained in this document represents components of the legal health record. It is not the complete legal health record.[facility]
== END 2025-02-05 08:00 | disposition home or self-care (01) ==
LOC: HO.LAB 07:59
PROVIDERS: PCP Internal Medicine; Visit Provider Internal Medicine Endocrinology, Diabetes & Metabolism
DX: E23.0 Hypopituitarism (principal)
CPT/HCPCS: 36415; 84402; 84403